=== PATIENT | male | born 1970 | race Caucasian/White ===

== ENCOUNTER → 2020-08-12 14:43 | Outpatient (CLI) | payer OTHER, SELFPAY ==
--- NOTE | 2020-08-12 14:48 | DI.RAD.S_ITS ---
PROCEDURE: XR KNEE LT 3V INDICATIONS: LEFT KNEE PAIN TECHNIQUE: 3 views of the knee were acquired. COMPARISON: None. FINDINGS: Bones: No fractures or dislocations. No suspicious bony lesions. Soft tissues: No joint effusion. No suspicious soft tissue calcifications. IMPRESSION: Mild medial compartment joint space narrowing indicating mild osteoarthritis but no trauma found. Dictated by: Markus Aguirre M.D. on 08/12/2020 at 15:54 Approved by: Markus Aguirre M.D. on 08/12/2020 at 16:24
== END ==
PROVIDERS: Referring Provider Family Medicine; Visit Provider Family Medicine
DX: M17.12 Unilateral primary osteoarthritis, left knee (principal)
CPT/HCPCS: 73562

== ENCOUNTER → 2020-12-02 07:07 | Outpatient (CLI) | payer OTHER, SELFPAY ==
--- NOTE | 2020-12-02 | DI.MRI.S_ITS ---
PROCEDURE: MR KNEE LT WO CON INDICATIONS: Unspecified internal derangement of left knee TECHNIQUE: Noncontrast sagittal PD fast spin echo and T2 fast spin echo with fat saturation, sagittal 3-D FLASH with fat saturation; coronal T1 spin echo and PD fast spin echo with fat saturation, and axial PD fast spin echo with fat saturation through the knee. COMPARISON: None. FINDINGS: Image quality: Excellent. Menisci: There is oblique tear involving posterior horn of medial meniscus extending to inferior articulating surface. No gross focal lateral meniscal tear is seen. The meniscal root ligaments appear intact. Cruciate ligaments: Thickened proximal to mid anterior cruciate ligament with intrasubstance T2 hyperintense signal suggestive of moderate grade partial-thickness tear. No full-thickness ACL rupture. PCL is intact. There is a lobulated cystic structure involving posterior aspect of intercondylar notch adjacent to proximal ACL near its femoral insertion and measures up to 1.9 x 1.6 x 2.3 cm in size and may represent ganglion cyst. Medial structures: The medial collateral ligament appears intact. The posterior oblique ligament, semimembranosus tendon insertions, oblique popliteal ligament, and meniscocapsular junction appear intact. Visualized portions of the pes anserinus tendons appear normal. No abnormal bursal fluid. Lateral structures: The lateral collateral ligament, long and short heads of the biceps femoris tendon appear intact. The popliteus tendon appears normal; the popliteofibular ligament appears intact. The posterosuperior and anteroinferior popliteomeniscal fascicles appear intact. The arcuate and fabellofibular ligaments appear intact, on either side of the lateral inferior geniculate artery. Iliotibial band appears normal. Anterior structures: The quadriceps and patellar tendons appear intact. Patellar alignment is normal. No femoral trochlear dysplasia or ventral trochlear prominence. No edema in the infrapatellar fat pad. Bones and cartilage: Nonspecific marrow edema involving medial aspect of posterior lateral femoral condyle near proximal ACL insertion without discrete fracture line. Marrow edema is also noted involving weight-bearing portion of lateral tibial plateau without discrete fracture line. There is also marrow edema involving medial portion of patella with overlying moderate to high-grade chondromalacia in medial facet of patella cartilage and suggestion of a small osteochondral lesion measures 5 millimeter in size. Mild medial and lateral femoral tibial compartment osteoarthritis and low-grade chondromalacia is also seen. Joint space: There is moderate amount of joint fluid. No Keene's cyst. Normal appearing synovial plicae are incidentally noted. IMPRESSION: 1. Oblique tear involving posterior horn of medial meniscus extending to inferior articulating surface. No focal lateral meniscal tear. 2. Suggestion of moderate grade partial-thickness tear involving proximal to mid anterior cruciate ligament near its femoral insertion with adjacent lobulated and septated cystic structure measures 1.9 x 1.6 x 2.3 cm in size and may represent ganglion cyst . 3. PCL is intact. 4. 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 Suggestion of bony contusion involving lateral tibial plateau and medial periphery of lateral femoral condyle posterior aspect. No fracture or dislocation. Moderate amount of joint fluid, no gross loose body. Dictated by: Juan Godinez M.D. on 12/02/2020 at 9:41 Approved by: Juan Godinez M.D. on 12/02/2020 at 10:42
== END ==
PROVIDERS: PCP Family Medicine; Referring Provider Family Medicine; Visit Provider Family Medicine
DX: M23.92 Unspecified internal derangement of left knee (principal); S83.242A Other tear of medial meniscus, current injury, left knee, initial encounter; M22.42 Chondromalacia patellae, left knee
CPT/HCPCS: 73721

== ENCOUNTER 2023-02-21 08:26 | Observation (INO) | payer OTHER, SELFPAY ==
[2023-02-21] VITALS (10 sets, daily range): BP systolic 109–141; BP diastolic 63–76; PULSE 73–84; RESP 18–20; TEMP 36.2–36.6; O2SAT 95–98; BMI 26.2; BMI 22.7
--- NOTE | 2023-02-21 10:19 | ED_ITS ---
HPI - Abdominal Pain General Chief Complaint: Abdominal Pain Stated Complaint: sent by [facility] poss hernia T-1 Time Seen by Provider: 02/21/23 10:16 Source: patient Mode of arrival: Ambulatory Limitations: no limitations History of Present Illness HPI narrative: This is a 32-year-old male with history of hypertension, anxiety on atenolol, trazodone and antidepressant. Patient states that about 3 or 4 months ago he h ad a 12 in bolt he was cleaning with rust that is sort of slipped and struck him in the abdomen knocking him down. He states he had bruising at that time. He then developed what looks like a small hernia. He states pain will sort of come and go if he lifts up to change a light ball but has a certain activity will start to get pain who usually laid down it will resolve. States over the last day it has not. States the the hernia at his belly button is soft, it is little bit tender but he has more pain throughout his abdomen all over. He denies fevers or chills. No nausea or vomiting. He had a bowel movement yesterday, he has not had any black or bloody stools, he states no diarrhea or constipation. He notes urinary symptoms. He states pain was quite intense she radiate down towards the testicles. Patient states no prior surgeries. Patient states no known drug allergies. No tobacco, occasional alcohol, no illicit. Patient sees Dr. Breen for his primary care. Related Data Home Medications Medication Instructions Recorded Confirmed atenolol 25 mg tablet 25 mg PO BID ##0 10/30/12 02/21/23 fluoxetine 20 mg capsule 20 mg PO DAILY 02/21/23 02/21/23 Previous Rx's Medication Instructions Recorded trazodone 50 mg tablet 50 - 100 mg PO HS ##60 02/12/13 Review of Systems Review of Systems ROS Unobtainable: All systems reviewed & are unremarkable except as noted in HPI and below Patient History Social History Smoking Status: Never smoker alcohol intake: current Smoking Status: Never smoker alcohol intake frequency: holidays/special occasions only Substance Use Type: does not use Exam Narrative Exam Narrative: GENERAL: Alert and oriented x three, well-appearing male in moderate distress. HEENT: Head normocephalic, atraumatic, EOMI, pupils reactive, face symmetric, moist mucous membranes NECK: Supple, full range of motion CARDIOVASCULAR: Regular rate and rhythm without murmurs, rubs or gallops. RESPIRATORY: Breath sounds equal bilaterally, no wheezes rales or rhonchi. ABDOMEN: Soft, nondistended. Patient has generalized moderate tenderness throughout his abdomen. He does have a small to medium size umbilical hernia protruding, it is soft it is only tender on examination when palpating or pushing deeply, when I manipulated without attempted reduction nontender. No discoloration. I am able to palpated easily. Attempted reduction appears to push in words but then comes right back out. Normoactive bowel sounds all 4 quadrants. No guarding or rebound, rigidity, no mass : No CVA tenderness EXTREMITIES: Normal range of motion, no clubbing or edema. Neurovascularly intact NEUROLOGICAL: Cranial nerves II through XII grossly intact. Moving all extremities SKIN: Warm, dry, no petechiae, no rashes or lesions. Initial Vital Signs Initial Vital Signs: Vital Signs Temperature 97.9 F 02/21/23 08:31 Pulse Rate 84 02/21/23 08:31 Respiratory Rate 18 02/21/23 08:31 Blood Pressure 122/72 02/21/23 08:31 Pulse Oximetry 96 02/21/23 08:31 Oxygen Delivery Method Room Air 02/21/23 08:31 Course Orders Ordered: ED Orders 02/21/23 09:47 Urine Culture Stat Urine Microscopic Stat 02/21/23 10:29 CT abdomen pelvis w con Stat 02/21/23 10:41 Ammonia (NH3) Stat Complete Blood Count AUTO DIFF Stat Comprehensive Metabolic Panel Stat Lipase Stat 02/21/23 11:42 Education, smoking cessation ONGOING Acetaminophen (Acetaminophen 325 Mg Tablet) 650 mg PO Q6H [facility] Last Admin: 02/21/23 17:29 Dose: Not Given Documented By: Admin: 02/21/23 14:18 Dose: Not Given Documented By: JUANITO Hydromorphone HCl (Hydromorphone 0.5 Mg Inj) 0.5 mg IV Q2H PRN PRN Reason: Pain, Severe (7-10) Lactated Ringer's (Lactated Ringers) 1,000 mls @ 100 mls/hr IV CONT [facility] Last Admin: 02/21/23 13:11 Dose: 100 mls/hr Documented By: CLL Piperacillin Sod/Tazobactam (Sod 3.375 gm/ Sodium Chloride) 100 mls @ 25 mls/hr IV Q8H [facility] Naloxone HCl (Naloxone 0.4 Mg/Ml Vial) 0.2 mg IV Q2MIN PRN PRN Reason: Opiate Reversal Oxycodone HCl (Oxycodone Ir 5 Mg Tablet) 5 mg PO Q3H PRN PRN Reason: Pain, Moderate (4-6) Last Admin: 02/21/23 14:33 Dose: 5 mg Documented By: JUANITO Discontinued Medications Sodium Chloride (Normal Saline 0.9%) 1,000 mls @ 1,000 mls/hr IV BOLUS ONE Stop: 02/21/23 11:28 Last Infusion: 02/21/23 16:12 Dose: 0 mls/hr Documented By: Admin: 02/21/23 11:23 Dose: 1,000 mls/hr Documented By: YAZMIN Piperacillin Sod/Tazobactam (Sod 4.5 gm/ Sodium Chloride) 100 mls @ 200 mls/hr IV NOW ONE Stop: 02/21/23 11:19 Last Infusion: 02/21/23 12:50 Dose: 0 mls/hr Documented By: Admin: 02/21/23 12:02 Dose: 200 mls/hr Documented By: YAZMIN Lactated Ringer's (Lactated Ringers) 1,000 mls @ 125 mls/hr IV CONT [facility] Last Admin: 02/21/23 16:11 Dose: Not Given Documented By: EHLEN Ketorolac Tromethamine (Ketorolac 30 Mg/Ml Vial) 30 mg IV NOW ONE Stop: 02/21/23 10:30 Last Admin: 02/21/23 11:23 Dose: 30 mg Documented By: YAZMIN Lorazepam (Lorazepam 1 Mg Tablet) 1 mg PO NOW ONE Stop: 02/21/23 12:12 Last Admin: 02/21/23 12:16 Dose: 1 mg Documented By: YAZMIN Vital Signs Vital signs: Vital Signs - 8 hr 02/21/23 10:57 02/21/23 10:57 02/21/23 11:00 Pulse Rate 76 Blood Pressure 115/63 116/67 Pulse Oximetry 96 02/21/23 11:00 02/21/23 11:30 02/21/23 11:30 Pulse Rate 78 78 Blood Pressure 125/76 Pulse Oximetry 95 97 MDM - Abdominal Pain Lab Data 02/21/23 10:41 02/21/23 10:41 Labs: Lab Results 02/21/23 02/21/23 02/21/23 Range/Units 09:47 10:41 10:41 WBC 13.3 H (4.5-11.0) X10^3/uL RBC 4.40 L (4.5-5.9) X10^6/uL Hgb 14.2 (13.5-17.5) g/dL Hct 40.2 L (41-53) % MCV 91.4 (80-100) fL MCH 32.3 (26-34) PG MCHC 35.3 (30-36) % RDW 13.2 (11.6-14.8) % Plt Count 284 (150-400) X10^3/uL Neut % (Auto) 83.1 H (50-75) % Lymph % (Auto) 9.0 L (25-40) % Grainger % (Auto) 6.5 (3-14) % Eos % (Auto) 1.0 L (2-4) % Baso % (Auto) 0.4 (0-2) % Neut # (Auto) 14167 H (3046-2740) /uL Lymph # (Auto) 1200 (9154-2816) /uL Grainger # (Auto) 900 (0-900) /uL Eos # (Auto) 100 (0-450) /uL Baso # (Auto) 100 (0-100) /uL Sodium 134 L (137-145) mmol/L Potassium 3.1 L (3.4-5.1) mmol/L Chloride 92 L (98-107) mmol/L Carbon Dioxide 33 H (22-32) mmol/L BUN 16 (9-20) mg/dL Creatinine 0.96 (0.66-1.25) mg/dL Estimated GFR > 60 (>60) mL/min BUN/Creatinine Ratio 16.7 (6-22) Glucose 106 H (70-100) mg/dL Calcium 9.7 (8.4-10.2) mg/dL Total Bilirubin 1.4 H (0.2-1.3) mg/dL AST 50 (17-59) IU/L ALT 60 H (<50) IU/L Alkaline Phosphatase 70 (38-126) U/L Ammonia (9-30) umol/L Total Protein 8.4 H (6.3-8.2) g/dL Albumin 4.6 (3.5-5.0) g/dL Globulin 3.8 (1.7-4.1) g/dL Albumin/Globulin Ratio 1.2 (1.0-2.8) Lipase 73 (23-300) U/L Urine RBC None seen (0-5/HPF) Urine WBC 1-5/hpf (0-5/HPF) Ur Squamous Epith Cells 0-1 /hpf (0-5/HPF) Amorphous Sediment 2+ Urine Bacteria None seen (None) Ur Culture Indicated? Specimen cultured 02/21/23 Range/Units 10:41 WBC (4.5-11.0) X10^3/uL RBC (4.5-5.9) X10^6/uL Hgb (13.5-17.5) g/dL Hct (41-53) % MCV (80-100) fL MCH (26-34) PG MCHC (30-36) % RDW (11.6-14.8) % Plt Count (150-400) X10^3/uL Neut % (Auto) (50-75) % Lymph % (Auto) (25-40) % Grainger % (Auto) (3-14) % Eos % (Auto) (2-4) % Baso % (Auto) (0-2) % Neut # (Auto) (6780-3861) /uL Lymph # (Auto) (0010-8689) /uL Grainger # (Auto) (0-900) /uL Eos # (Auto) (0-450) /uL Baso # (Auto) (0-100) /uL Sodium (137-145) mmol/L Potassium (3.4-5.1) mmol/L Chloride (98-107) mmol/L Carbon Dioxide (22-32) mmol/L BUN (9-20) mg/dL Creatinine (0.66-1.25) mg/dL Estimated GFR (>60) mL/min BUN/Creatinine Ratio (6-22) Glucose (70-100) mg/dL Calcium (8.4-10.2) mg/dL Total Bilirubin (0.2-1.3) mg/dL AST (17-59) IU/L ALT (<50) IU/L Alkaline Phosphatase (38-126) U/L Ammonia < 9 L (9-30) umol/L Total Protein (6.3-8.2) g/dL Albumin (3.5-5.0) g/dL Globulin (1.7-4.1) g/dL Albumin/Globulin Ratio (1.0-2.8) Lipase (23-300) U/L Urine RBC (0-5/HPF) Urine WBC (0-5/HPF) Ur Squamous Epith Cells (0-5/HPF) Amorphous Sediment Urine Bacteria (None) Ur Culture Indicated? Point of care testing: Urine Dip Bedside Urine Glucose Negative Bedside Urine Bilirubin - Negative Bedside Urine Ketone ++ 40 Urine Specific [place] 1.015 Bedside Urine Occult Blood - Negative Bedside Urine pH 6.0 Bedside Urine Protein + 30 Bedside Urine Urobilinogen - Negative Bedside Urine Nitrite - Negative Bedside Urine Leukocytes - Negative Esterase Imaging Data CT scan - abdomen/pelvis: Radiologist's Impression: Lucinda Castillo??52??M??1970 ? Allergy/Adv: Not Recorded Close Abdomen/Pelvis CT (Signed) Nam Reyes - 02/21/23 Knee MRI (Signed) Juan Godinez - 12/02/20 Knee X-Ray (Signed) Markus Aguirre - 08/12/20 [address] [address] CT Scan Report Signed Patient: Lucinda Castillo MR#: [id number] : 1970 Acct:[id number] Age/Sex: 52 / M Date of Service: 02/21/23 Loc: ED Accession Number: [id number] ?? Procedure: CT abdomen pelvis w con Ordering Provider: Emy Urbina D.O. PROCEDURE:? CT ABDOMEN PELVIS W CON ? INDICATIONS:? umbilical hernia, soft, general abd pain ? TECHNIQUE:? After the administration of intravenous contrast, axial sections acquired from the lung bases to the pubic symphysis.? Coronal and sagittal reformats were performed.? For radiation dose reduction, the following was used:? automated exposure control, adjustment of mA and/or kV according to patient size.? ? COMPARISON:? None. ? FINDINGS:? Image quality:? Excellent.? ? Lung bases:? Unremarkable. Heart:? No significant findings. ? ABDOMEN: Liver:? Unremarkable.? ? Gallbladder:? Unremarkable.? ? Biliary ducts:? Unremarkable.? ? Pancreas:? Unremarkable.? ? Spleen:? Unremarkable.? ? Adrenal Glands:? Unremarkable.? ? Kidneys and Ureters:? Unremarkable.? ? ? Stomach and Bowel:? There is diverticulitis of the sigmoid colon.? There is a contained perforation, containing gas and fluid, with partial rim enhancement, measuring 2.5 x 1.5 centimeter (series 2, image 57).? Submucosal fat deposition of the distal ileum Peritoneum:? No abnormal intraperitoneal fluid.? No free air.? ? Ventral Wall: ? Umbilical hernia containing fat. Abdominal Nodes:? No retroperitoneal or mesenteric adenopathy by size criteria.? Vessels:? Aorta and inferior vena cava are normal in size.? ? PELVIS: Pelvic Organs:? Unremarkable.? ? Bladder:? Unremarkable.? ? Pelvic Nodes: No enlarged lymph nodes.? Miscellaneous: No hernias are seen. ? ? ? Bones:? Questionable bilateral sacroiliitis, right greater than left. ? ? ? IMPRESSION:? There is diverticulitis of the sigmoid colon.? There is a contained perforation, containing gas and fluid, with partial rim enhancement, measuring 2.5 x 1.5 centimeter (series 2, image 57). ? Submucosal fat deposition within the distal ileum, and questionable bilateral sacroiliitis.? Findings are suggestive of inflammatory bowel disease.? Correlate with history. ? Fat containing umbilical hernia.? ? Dictated by: Nam Reyes M.D. on 02/21/2023 at 11:10 ? ? Approved by: Nam Reyes M.D. on 02/21/2023 at 11:14?? MDM Narrative Medical decision making narrative: This is a 52-year-old male with umbilical hernia that has been present for about 3 months he states the states has not changed. He notes that sometimes when he reaches upward or does certain activities he will have increased abdominal pain. Patient notes that he is hurting kind of all around. He does have some tenderness at the hernia itself but with direct palpation not very tender when I try to push deeply is a little bit more tender but he is also quite tender throughout on his abdominal exam more so than over the hernia itself. It is soft easily palpable in feels like it is easily reduced but immediately popped back out. Patient's has a leukocytosis, slight leftward shift. Sodium is 134 potassium 3.1 chloride 92 CO2 33 with normal BUN and creatinine, glucose is 106, total bili is 1.4, AST is 60, ammonia is negative with total protein. Urine has ketones, some protein. No RBCs, 1-5 WBCs, 0-1 squamous epithelial, no bacteria specimen was cultured. Patient's imaging shows appears to be diverticulitis with walled-off perforation rim enhancing suspicious for abscess. Patient also has some changes that could be questionable bilateral sacroiliitis right greater than left had umbilical hernia containing fat. Submucosal fat deposition in the distal ileum. Patient does note he has been told he has diverticulitis or diverticulosis in the past. Patient was covered with a dose of IV antibiotics. Consultation with General surgery, Dr. Dc patient has perforation sigmoid diverticulitis with what appears to be he abscess. Covered with JIM Hirsch, Dr. Dc accepts for observation. Discharge Plan Departure Patient Disposition: Admitted as Observation Clinical Impression: Diverticulitis of intestine with perforation Admit Date/Time: 02/21/23 11:42 Admit Provider: Dk Dc
--- NOTE | 2023-02-21 10:29 | DI.CT.S_ITS ---
PROCEDURE: CT ABDOMEN PELVIS W CON INDICATIONS: umbilical hernia, soft, general abd pain TECHNIQUE: After the administration of intravenous contrast, axial sections acquired from the lung bases to the pubic symphysis. Coronal and sagittal reformats were performed. For radiation dose reduction, the following was used: automated exposure control, adjustment of mA and/or kV according to patient size. COMPARISON: None. FINDINGS: Image quality: Excellent. Lung bases: Unremarkable. Heart: No significant findings. ABDOMEN: Liver: Unremarkable. Gallbladder: Unremarkable. Biliary ducts: Unremarkable. Pancreas: Unremarkable. Spleen: Unremarkable. Adrenal Glands: Unremarkable. Kidneys and Ureters: Unremarkable. Stomach and Bowel: There is diverticulitis of the sigmoid colon. There is a contained perforation, containing gas and fluid, with partial rim enhancement, measuring 2.5 x 1.5 centimeter (series 2, image 57). Submucosal fat deposition of the distal ileum Peritoneum: No abnormal intraperitoneal fluid. No free air. Ventral Wall: Umbilical hernia containing fat. Abdominal Nodes: No retroperitoneal or mesenteric adenopathy by size criteria. Vessels: Aorta and inferior vena cava are normal in size. PELVIS: Pelvic Organs: Unremarkable. Bladder: Unremarkable. Pelvic Nodes: No enlarged lymph nodes. Miscellaneous: No hernias are seen. Bones: Questionable bilateral sacroiliitis, right greater than left. IMPRESSION: There is diverticulitis of the sigmoid colon. There is a contained perforation, containing gas and fluid, with partial rim enhancement, measuring 2.5 x 1.5 centimeter (series 2, image 57). Submucosal fat deposition within the distal ileum, and questionable bilateral sacroiliitis. Findings are suggestive of inflammatory bowel disease. Correlate with history. Fat containing umbilical hernia. Dictated by: Nam Reyes M.D. on 02/21/2023 at 11:10 Approved by: Nam Reyes M.D. on 02/21/2023 at 11:14
[2023-02-21 10:55] LABS: Add Manual Diff / Slide Review NO; Basophils Absolute Auto 100 /uL (0-100); Basophils Percent Auto 0.4 % (0-2); Eosinophils Absolute Auto 100 /uL (0-450); Hematocrit 40.2 % (41-53); Hemoglobin 14.2 g/dL (13.5-17.5); Lymphocytes Absolute Auto 1200 /uL (1100-4500); Mean Corpuscular HGB Conc 35.3 % (30-36); Mean Corpuscular Hemoglobin 32.3 PG (26-34); Mean Corpuscular Volume 91.4 fL (80-100); Monocytes Absolute Auto 900 /uL (0-900); Monocytes Percent Auto 6.5 % (3-14); Neutrophils Absolute Auto 11000 /uL (1500-7000); Neutrophils Percent Auto 83.1 % (50-75); Platelet Count 284 X10^3/uL (150-400); Red Cell Distribution Width 13.2 % (11.6-14.8); White Blood Cell Count 13.3 X10^3/uL (4.5-11.0)
[2023-02-21 11:10] LABS: Ammonia (NH3) < 9 umol/L (9-30)
[2023-02-21 11:12] LABS: Alanine Aminotransferase 60 IU/L (<50); Albumin 4.6 g/dL (3.5-5.0); Albumin Globulin Ratio 1.2 (1.0-2.8); Alkaline Phosphatase 70 U/L (38-126); Aspartate Aminotransferase 50 IU/L (17-59); BUN Creatinine Ratio 16.7 (6-22); Bilirubin Total 1.4 mg/dL (0.2-1.3); Blood Urea Nitrogen 16 mg/dL (9-20); Calcium 9.7 mg/dL (8.4-10.2); Carbon Dioxide 33 mmol/L (22-32); Chloride 92 mmol/L (98-107); Estimated Glomerular Filt Rate > 60 mL/min (>60); Globulin 3.8 g/dL (1.7-4.1); Glucose 106 mg/dL (70-100); HEMOLYSIS < 15 (0-50); Lipase 73 U/L (23-300); Potassium 3.1 mmol/L (3.4-5.1); Sodium 134 mmol/L (137-145); Total Protein 8.4 g/dL (6.3-8.2)
[2023-02-21 11:16] LABS: Amorphous Sediment Urine 2+; Bacteria Urine None Seen; Culture Indicated Urine Specimen Cultured; RBC Urine None Seen (0-5/HPF); Squamous Epithelial Cell Urine 0-1 /HPF (0-5/HPF); WBC Urine 1-5/HPF (0-5/HPF)
[2023-02-21] MEDS: KETOROLAC 30 MG/ML VIAL IV (11:23)
[2023-02-21] MEDS: SODIUM CHLORIDE 0.9% 1,000 ML 1000 ML IV (11:23)
[2023-02-21] MEDS: PIPERACILLIN/TAZO 4.5 GM in SODIUM CHLORIDE 0.9% 100 ML IV (12:02)
[2023-02-21] MEDS: LORazepam 1 MG TABLET PO (12:16)
[2023-02-21] MEDS: LACTATED RINGERS 1,000 ML 100 ML IV ×2 (13:11→23:21)
--- NOTE | 2023-02-21 14:02 | PM.HP.1 ---
History of Present Illness History of Present Illness Date Patient Seen: 02/21/23 Time Patient Seen: 19:49 Chief complaint: sent by [facility] poss hernia T-1 Narrative: 52-year-old man history of diverticular disease who is admitted to the hospital with acute diverticulitis. Within the last few days he developed severe left lower quadrant pain. He presented to the [facility] Emergency Department yesterday 02/20. Evaluation was significant for WBC 13, CT abdomen pelvis demonstrates a 2 cm pericolonic abscess of the sigmoid colon. No free air or significant free fluid noted. He is never had a prior colonoscopy. No personal or family history of intestinal malignancy. No blood per rectum unintentional weight loss nausea vomiting. [facility] Social History Smoking Status: Never smoker alcohol intake: current Meds Home Medications and Allergies Home Medications Medication Instructions Recorded Confirmed Type atenolol 25 mg tablet 25 mg PO BID ##0 10/30/12 02/21/23 History trazodone 50 mg tablet 50 - 100 mg PO HS ##60 02/12/13 02/21/23 Rx fluoxetine 20 mg capsule 20 mg PO DAILY 02/21/23 02/21/23 History Exam Vital Signs (past 8 hours): - 02/21/23 08:31 02/21/23 10:43 02/21/23 10:44 Temperature 97.9 F Pulse Rate 84 75 78 Respiratory Rate 18 Blood Pressure 122/72 Pulse Oximetry 96 97 97 Oxygen Delivery Method Room Air Oxygen Flow Rate 02/21/23 10:44 02/21/23 10:57 02/21/23 10:57 Temperature Pulse Rate 76 Respiratory Rate Blood Pressure 120/64 115/63 Pulse Oximetry 96 Oxygen Delivery Method Oxygen Flow Rate 02/21/23 11:00 02/21/23 11:00 02/21/23 11:30 Temperature Pulse Rate 78 Respiratory Rate Blood Pressure 116/67 125/76 Pulse Oximetry 95 Oxygen Delivery Method Oxygen Flow Rate 02/21/23 11:30 02/21/23 12:00 02/21/23 12:00 Temperature Pulse Rate 78 74 Respiratory Rate Blood Pressure 141/71 H Pulse Oximetry 97 96 Oxygen Delivery Method Oxygen Flow Rate 02/21/23 12:34 02/21/23 12:46 Temperature 97.3 F L Pulse Rate 73 Respiratory Rate 20 Blood Pressure 112/66 Pulse Oximetry 98 Oxygen Delivery Method Room Air Oxygen Flow Rate 0 Oxygen Delivery Method Room Air Oxygen Flow Rate 0 Narrative Exam Narrative: General adult man alert oriented no acute distress Chest nonlabored respiration Heart regular rate and rhythm Abdomen tender left lower quadrant. Not kings peritonitis. Extremities warm well perfused Objective Labs 02/21/23 10:41 02/21/23 10:41 Labs: Laboratory Results - last 24 hr 02/21/23 02/21/23 02/21/23 09:47 10:41 10:41 WBC 13.3 H RBC 4.40 L Hgb 14.2 Hct 40.2 L MCV 91.4 MCH 32.3 MCHC 35.3 RDW 13.2 Plt Count 284 Neut % (Auto) 83.1 H Lymph % (Auto) 9.0 L Ferry % (Auto) 6.5 Eos % (Auto) 1.0 L Baso % (Auto) 0.4 Neut # (Auto) 45625 H Lymph # (Auto) 1200 Ferry # (Auto) 900 Eos # (Auto) 100 Baso # (Auto) 100 Sodium 134 L Potassium 3.1 L Chloride 92 L Carbon Dioxide 33 H BUN 16 Creatinine 0.96 Estimated GFR > 60 BUN/Creatinine Ratio 16.7 Glucose 106 H Calcium 9.7 Total Bilirubin 1.4 H AST 50 ALT 60 H Alkaline Phosphatase 70 Ammonia Total Protein 8.4 H Albumin 4.6 Globulin 3.8 Albumin/Globulin Ratio 1.2 Lipase 73 Urine RBC None seen Urine WBC 1-5/hpf Ur Squamous Epith Cells 0-1 /hpf Amorphous Sediment 2+ Urine Bacteria None seen Ur Culture Indicated? Specimen cultured 02/21/23 10:41 WBC RBC Hgb Hct MCV MCH MCHC RDW Plt Count Neut % (Auto) Lymph % (Auto) Ferry % (Auto) Eos % (Auto) Baso % (Auto) Neut # (Auto) Lymph # (Auto) Ferry # (Auto) Eos # (Auto) Baso # (Auto) Sodium Potassium Chloride Carbon Dioxide BUN Creatinine Estimated GFR BUN/Creatinine Ratio Glucose Calcium Total Bilirubin AST ALT Alkaline Phosphatase Ammonia < 9 L Total Protein Albumin Globulin Albumin/Globulin Ratio Lipase Urine RBC Urine WBC Ur Squamous Epith Cells Amorphous Sediment Urine Bacteria Ur Culture Indicated? Assessment & Plan Assessment and plan (1) Diverticulitis of intestine with perforation: Status: Acute Assessment & Plan narrative: 52-year-old man admitted to the hospital with complicated diverticulitis with [address] abdomen pelvis personally reviewed demonstrates stranding and a small fluid collection adjacent to the sigmoid colon. It appears that he has a small contained colonic perforation likely due to diverticular disease. I discussed management with him and at this point there is no indication for any surgical intervention. We will proceed with antibiotic therapy and should his condition worsen then we will reassess. I did explain to him that he does not need a colonoscopy in approximately 6-8 weeks to verify that this was actually diverticular disease that he had not an underlying malignancy. His questions have been answered and he is in agreement with the plan. Trial of clear liquid diet. Continue Zosyn. Anticipate discharge home tomorrow on oral antibiotics. Outpatient colonoscopy Quality VTE Deep Vein Thrombosis/Pulmonary Embolism Present on Admission: No
--- NOTE | 2023-02-21 14:23 | PC.NURSE ---
Patient tolerated some red jello and water. Told to stop if he started having nausea or emesis. He drinks one drink in the afternoons, he states. Friend in room. He is complaining of some abdomen tenderness. To give patient something for discomfort now.
[2023-02-21] MEDS: OXYCODONE IR 5 MG TABLET PO ×2 (14:33→19:48)
[2023-02-21] MEDS: PIPERACILLIN/TAZO 3.375 GM in SODIUM CHLORIDE 0.9% 100 ML IV (20:45)
[2023-02-21] MEDS: TRAZODONE 50 MG TABLET PO ×2 (20:46→23:21)
[2023-02-21] MEDS: atenoloL 25 MG TABLET PO (20:46)
[2023-02-21] MEDS: ACETAMINOPHEN 325 MG TABLET 650 MG PO (23:21)
[2023-02-22] VITALS: O2SAT 98
--- NOTE | 2023-02-22 03:23 | PC.NURSE ---
Addendum entered by Lisseth Mcclure R.N. 02/22/23 03:55: Potassium=3.1, 40meq PO ordered. Pt spit out x2 pills stating these are too big and I'm not taking them Original Note: Pt upset at start of shift r/t his home medications not available. Notified Dr. Dc. Trazadone ordered 100mg at bedtime and his home Atenolol. Received 10mg Oxycodone PRN for abdominal pain 04/01. Pt ambulating to bathroom with steady gait. Tolerating clear diet. LR and IV ABX running.
[2023-02-22 04:00] VITALS: BP 119/70; PULSE 75; RESP 17; TEMP 36.4; O2SAT 95; O2SAT 98
[2023-02-22] MEDS: PIPERACILLIN/TAZO 3.375 GM in SODIUM CHLORIDE 0.9% 100 ML IV (04:11)
[2023-02-22] MEDS: HYDROMORPHONE 0.5 MG INJ IV ×2 (04:19→09:28)
[2023-02-22] MEDS: OXYCODONE IR 5 MG TABLET PO ×2 (04:26→08:29)
[2023-02-22 05:05] LABS: Add Manual Diff / Slide Review NO; Basophils Absolute Auto 100 /uL (0-100); Basophils Percent Auto 0.4 % (0-2); Eosinophils Absolute Auto 300 /uL (0-450); Eosinophils Percent Auto 2.6 % (2-4); Hematocrit 35.5 % (41-53); Hemoglobin 12.3 g/dL (13.5-17.5); Lymphocytes Absolute Auto 1300 /uL (1100-4500); Lymphocytes Percent Auto 10.9 % (25-40); Mean Corpuscular HGB Conc 34.8 % (30-36); Mean Corpuscular Hemoglobin 32.2 PG (26-34); Mean Corpuscular Volume 92.4 fL (80-100); Monocytes Absolute Auto 900 /uL (0-900); Monocytes Percent Auto 7.4 % (3-14); Neutrophils Absolute Auto 9100 /uL (1500-7000); Neutrophils Percent Auto 78.7 % (50-75); Platelet Count 231 X10^3/uL (150-400); Red Blood Cell Count 3.84 X10^6/uL (4.5-5.9); Red Cell Distribution Width 13.1 % (11.6-14.8); White Blood Cell Count 11.6 X10^3/uL (4.5-11.0)
[2023-02-22 08:00] VITALS: BP 118/66; PULSE 90; RESP 22; TEMP 36.4; O2SAT 100; O2SAT 97
[2023-02-22] MEDS: atenoloL 25 MG TABLET PO (08:29)
[2023-02-22] MEDS: FLUoxetine 20 MG CAPSULE PO (08:30)
--- NOTE | 2023-02-22 09:42 | PC.NURSE ---
Pt is very anxious this morning and reports that he's frustrated with lack of communication from providers. Pt also reports that he's very anxious and he's pacing in the room. When this RN asked if he takes his atenolol for HTN or for anxiety the pt stated he takes his atenolol for anxiety at home. When Dr. Dc rounded this morning, this RN informed him that the pt takes the atenolol for anxiety and not for HTN. Pt is currently eating breakfast and if he's able to keep down solids the pt can home today per Dr. Dc.
--- NOTE | 2023-02-22 11:26 | CM.DANOTE ---
DCP Brief Assessment: Patient is a 52yo M who was admitted to the hospital with acute diverticulitis. Payer: Brandie GUERRERO and self pay PCP: Dr. Efe Breen GASSER MACHINE OPERATOR was unable to meet with patient due to patient's eagerness to leave as early as possible. Per chart, patient appears independent at baseline. From nursing staff, patient was eager to leave and left as soon as allowed. Nursing staff reports he appeared to have no needs from CM team. Plan: d/c home. No needs. MARYBETH Villalobos Discharge Planning/Care Management CM Discharge Assessment Start: 02/22/23 11:25 Freq: Status: Active Protocol: Document 02/22/23 11:25 (Rec: 02/22/23 11:26 [id number]) Discharge Planning Assessment Assigned Heeler Machine MARYBETH Villalobos DPOA/Assigned Designee Name Ellie Reeves (friend) Contact Information [phone] Advance Directives? No History Provided By Medical Record Prior Living Arrangements House Independent with ADL's Yes Discharge Plan Home Whiteboard Updated in Patient Room with No name and ext. # of Heeler Machine Review Status In Process Next Review Type Continued Stay Review
--- NOTE | 2023-02-22 11:27 | PC.NURSE ---
Pt discharged today with all of his personal belongings including cell phone, clothes, shoes, and comfort items. Pt A&Ox4, absent of IV, able to verbalize understanding of when to return to the ED if needed and when to follow up with PCP and to schedule a colonoscopy in 6-8 weeks. Pt verbalized understanding of how to take all medications including new medications and to continue to his home medications as normal. Pt walked out of the hospital after refusing a W/C, this RN accompied the pt down to the [address] entrance where the pt stated I'll wait here for my ride he's seeing Dr. Breen and then he'll pick me up. This RN did see the pt's ride this morning and confirmed with the pt's friend that he would be taking the pt home at approximately 0940AM this morning. Pt was able to to ambulate without any assistance from staff. All questions answered upon discharge.
== END 2023-02-22 11:03 | disposition home or self-care (01) | DRG 391 ==
LOC: ED 11:42 → AC 12:17
PROVIDERS: Admitting Provider Surgery; Emergency Provider Emergency Medicine; PCP Family Medicine; Referring Provider Emergency Medicine; Visit Provider Surgery
DX: K57.20 Diverticulitis of large intestine with perforation and abscess without bleeding (principal); K65.1 Peritoneal abscess; Z20.822 Contact with and (suspected) exposure to COVID-19; F41.9 Anxiety disorder, unspecified; I10 Essential (primary) hypertension
CPT/HCPCS: 36415; 74177; 80053; 81003; 81015; 82140; 83690; 85025; 87086; 96365; 96375; 99221; 99284; G0378; J1170; J1885; J2543; Q9967

== ENCOUNTER 2023-02-23 04:43 | Emergency (ER) | payer OTHER, SELFPAY ==
[2023-02-21 12:54] VITALS: BMI 22.7
[2023-02-23 04:55] VITALS: BP 135/80; PULSE 97; RESP 16; TEMP 36.7; O2SAT 97; BMI 27.6
[2023-02-23 06:58] LABS: RBC Urine None Seen (0-5/HPF); WBC Urine None Seen (0-5/HPF)
[2023-02-23 06:59] LABS: Bacteria Urine None Seen; Culture Indicated Urine Cult Not Indicated
--- NOTE | 2023-02-23 07:06 | ED.ABDPAIN ---
HPI - Abdominal Pain General Chief Complaint: Abdominal Pain Stated Complaint: Was dx with diverticulitis yesterday, symptomatic Time Seen by Provider: 02/23/23 05:25 Source: patient Mode of arrival: Ambulatory History of Present Illness HPI narrative: Patient is a 52-year-old male history of hypertension recently admitted on February 21 for 2 cm pericolonic abscess and leukocytosis of 13. He was kept overnight and discharged the following day on Levaquin and tramadol. He reports that he started regular diet eating eggs sausage and chicken noodle soup afterward he had significant pain and felt extremely nauseous. Pain has subsided since then. He is afebrile vitals are stable now. He reports that now he is feeling a bit better but as soon as he started adjusting some of the food pain worsened significantly. Related Data Home Medications Medication Instructions Recorded Confirmed atenolol 25 mg tablet 25 mg PO BID ##0 10/30/12 02/21/23 fluoxetine 20 mg capsule 20 mg PO DAILY 02/21/23 02/21/23 Previous Rx's Medication Instructions Recorded trazodone 50 mg tablet 50 - 100 mg PO HS ##60 02/12/13 levofloxacin 500 mg tablet 500 mg PO DAILY #5 tabs 02/22/23 tramadol 50 mg tablet 50 mg PO Q6H PRN pain #5 tabs 02/22/23 hydrocodone 5 mg-acetaminophen 325 1 tab PO Q6H PRN pain #10 tabs 02/23/23 mg tablet metronidazole 500 mg tablet 500 mg PO Q8H 7 days #21 tabs 02/23/23 ondansetron 4 mg disintegrating 4 mg PO Q8H PRN nausea and 02/23/23 tablet vomiting #10 tabs Allergies Allergy/AdvReac Type Severity Reaction Status Date / Time No Known Drug Allergies Allergy Verified 02/22/23 09:46 Review of Systems Review of Systems ROS Unobtainable: All systems reviewed & are unremarkable except as noted in HPI and below Patient History Social History Smoking Status: Never smoker alcohol intake: current Smoking Status: Never smoker alcohol intake frequency: holidays/special occasions only Substance Use Type: does not use Exam Initial Vital Signs Initial Vital Signs: Vital Signs Temperature 98.0 F 02/23/23 04:55 Pulse Rate 97 H 02/23/23 04:55 Respiratory Rate 16 02/23/23 04:55 Blood Pressure 135/80 02/23/23 04:55 Pulse Oximetry 97 02/23/23 04:55 Oxygen Delivery Method Room Air 02/23/23 04:55 GENERAL: Alert pleasant 52-year-old male and in no acute distress. HEENT: Head atraumatic,EOMI, pupils reactive, face symmetric, moist mucous membranes CARDIOVASCULAR: Regular rate and rhythm without murmurs, rubs or gallops. RESPIRATORY: Breath sounds equal bilaterally, no wheezes rales or rhonchi. ABDOMEN: Soft, no distention positive bowel sounds mild lower quadrant pain left greater than right no upper abdominal pain : No CVA tenderness EXTREMITIES: Normal range of motion, no clubbing or edema. Neurovascularly intact NEUROLOGICAL: Alert and oriented x4. SKIN: Warm, dry, no laceration, no petechiae, no rashes or lesions. Course Orders Ordered: Discontinued Medications Hydrocodone Bitart/Acetaminophen (Hydrocodone/Acet 5/325 Tablet) 1 tab PO NOW ONE Stop: 02/23/23 07:22 Last Admin: 02/23/23 07:48 Dose: 1 tab Documented By: ARLIN Ketorolac Tromethamine (Ketorolac 30 Mg/Ml Vial) 30 mg IM NOW ONE Stop: 02/23/23 07:22 Last Admin: 02/23/23 07:45 Dose: 30 mg Documented By: ARLIN Ondansetron HCl (Ondansetron 4 Mg Odt) 4 mg SL NOW ONE Stop: 02/23/23 07:22 Last Admin: 02/23/23 07:44 Dose: 4 mg Documented By: ARLIN Vital Signs Vital signs: Vital Signs - 8 hr 02/23/23 04:55 Temperature 98.0 F Pulse Rate 97 H Respiratory Rate 16 Blood Pressure 135/80 Pulse Oximetry 97 Oxygen Delivery Method Room Air MDM - Abdominal Pain Lab Data Labs: Lab Results 02/23/23 Range/Units 06:36 Urine RBC None seen (0-5/HPF) Urine WBC None seen (0-5/HPF) Urine Bacteria None seen (None) Ur Culture Indicated? Cult not indicated Point of care testing: Urine Dip Bedside Urine Glucose Negative Bedside Urine Bilirubin - Negative Bedside Urine Ketone - Negative Urine Specific [place] 1.010 Bedside Urine Occult Blood +/- Bedside Urine pH 6.0 Bedside Urine Protein +/- 15 Bedside Urine Urobilinogen - Negative Bedside Urine Nitrite - Negative Bedside Urine Leukocytes - Negative Esterase MDM Narrative Medical decision making narrative: Patient overall appears well abdomen is soft nondistended minimally tender no evidence of acute abdomen. Pain started after he ate quite a bit. He does have a 2 cm pericolonic abscess. Discharged home Levaquin and tramadol. At this time we talked about low fiber diet clear liquids for a couple days. I think reasonable to start him on Flagyl along with [place] and Zofran. Given strict return precautions if needed. He is afebrile not tachycardic and normotensive, without evidence of an acute. I do not see need for repeating blood work or CT this time. Discharge Plan Departure Patient Disposition: Home Clinical Impression: Diverticulitis of intestine with perforation Instructions: Diverticulitis, Clear Liquid Diet Activity Restrictions/Additional Instructions: *You have been diagnosed with diverticulitis *What to do: At this time I recommend low-fiber clear liquid diet for couple of days if tolerating then you may advance diet slowly. *Continue to take medications as directed Flagyl 500 mg 3 times a day 7 days [place] 1 tablet every 6 hours if needed for severe pain (do not combine with tramadol, stop taking tramadol) Zofran 4 mg every 8 hours if needed for nausea or vomiting Motrin 600 mg every 6 hours if needed for dhlc-do-sdfahpdo pain *Follow up with your primary care provider in 2-3 days or call [phone] Follow-up with Dr. Dc *Return to ER if you should have increasing pain fever body aches chills not tolerating fluids or any new, worsening or concerning symptoms Prescriptions: New hydrocodone-acetaminophen 5-325 mg tablet 1 tab PO Q6H PRN (Reason: pain) Qty: 10 0RF metronidazole 500 mg tablet 500 mg PO Q8H 7 Days Qty: 21 0RF ondansetron 4 mg tablet,disintegrating 4 mg PO Q8H PRN (Reason: nausea and vomiting) Qty: 10 0RF No Action atenolol 25 MG tablet 25 mg PO BID Qty: 0 trazodone 50 MG tablet 50 - 100 mg PO HS Qty: 60 0RF fluoxetine 20 mg capsule 20 mg PO DAILY levofloxacin 500 mg tablet 500 mg PO DAILY Qty: 5 0RF tramadol 50 mg tablet 50 mg PO Q6H PRN (Reason: pain) Qty: 5 0RF Referrals: Dk Dc MD [Physician] - Efe Breen MD [Primary Care Provider] - Stand Alone Forms: Patient Portal/API
[2023-02-23] MEDS: ONDANSETRON 4 MG ODT SL (07:44)
[2023-02-23] MEDS: KETOROLAC 30 MG/ML VIAL IM (07:45)
[2023-02-23] MEDS: HYDROCODONE/ACET 5/325 TABLET 1 TAB PO (07:48)
[2023-02-23 07:51] VITALS: BP 132/76; PULSE 76; RESP 20; O2SAT 96
== END 2023-02-23 08:03 | disposition home or self-care (01) ==
PROVIDERS: Emergency Medicine; Emergency Provider Emergency Medicine; PCP Family Medicine
DX: K57.80 Diverticulitis of intestine, part unspecified, with perforation and abscess without bleeding (principal); R11.0 Nausea
CPT/HCPCS: 81003; 81015; 96372; 99283; J1885

== ENCOUNTER 2023-04-16 14:00 | Day surgery (SDC) | payer OTHER, SELFPAY ==
[2023-02-21 12:54] VITALS: BMI 22.7
[2023-04-16] VITALS (7 sets, daily range): BP systolic 79–159; BP diastolic 52–100; PULSE 89–97; RESP 16–20; TEMP 36.1–36.3; O2SAT 94–99; BMI 25.0
[2023-04-16] MEDS: LACTATED RINGERS 1,000 ML 150 ML IV (15:20)
--- NOTE | 2023-04-16 16:41 | P.HP_ITS ---
History of Present Illness History of Present Illness Date Patient Seen: 04/16/23 Time Patient Seen: 16:41 Chief complaint: Colonoscopy Narrative: 52-year-old man history of diverticular disease here for screening colonoscopy. No family history of intestinal malignancy. Currently no abdominal pain or fever his most recent episode of diverticular disease was several months ago. [facility] Medical History Anxiety Diverticulitis Hernia Surgical History H/O knee surgery Social History marital status: unmarried,single household members: none lives independently: Yes occupational status: employed Smoking Status: Current every day smoker alcohol intake: current substance use type: does not use Meds Home Medications and Allergies Home Medications Medication Instructions Recorded Confirmed Type fluoxetine 20 mg capsule 20 mg PO DAILY 02/21/23 04/16/23 History atenolol 20 mg PO BID 03/21/23 04/16/23 History trazodone 100 mg PO BEDTIME 03/21/23 04/16/23 History sodium,potassium,mag sulfates 17.5 See Rx Instructions PO .COMPLEX 03/29/23 04/16/23 Rx gram-3.13 gram-1.6 gram oral soln #354 mL (Suprep Bowel Prep Kit) Allergies Allergy/AdvReac Type Severity Reaction Status Date / Time No Known Drug Allergies Allergy Verified 04/11/23 11:36 Exam Vital Signs (past 8 hours): - 04/16/23 15:08 Temperature 97.3 F L Pulse Rate 96 H Respiratory Rate 17 Blood Pressure 145/100 H Pulse Oximetry 96 Oxygen Delivery Method Room Air Oxygen Delivery Method Room Air Narrative Exam Narrative: General adult man alert oriented no acute distress Abdomen soft nontender nondistended Assessment & Plan Assessment and plan (1) Diverticulitis of intestine with perforation: Qualifiers: Diverticulitis bleeding: without bleeding Diverticulitis site: large intestine Qualified Code(s): K57.20 - Diverticulitis of large intestine with perforation and abscess without bleeding Status: Acute Assessment & Plan narrative: 52-year-old man with a history of diverticulitis here for screening colonoscopy. Technical details were discussed. Risks, benefits, alternatives explained. Risks including but not limited to myocardial infarction, aspiration, bleeding, pain, missed lesion, incomplete examination, need for further radiographic studies, colonic perforation, and need for major abdominal surgery were discussed. All questions were answered to their satisfaction, and they are in agreement with this plan.
--- NOTE | 2023-04-16 16:59 | PM.OP.COLON ---
Operative Date/Time/Diagnoses Date of procedure: 04/16/23 Time of procedure: 16:59 Pre-op diagnosis: Diverticulosis Post-op diagnosis: same Procedure & Clinicians Study performed: Colonoscopy Same procedure as scheduled: Yes Indications: Colorectal screening. History of diverticulitis Surgeon: Dk Dc Procedure Notes Procedure in detail: The history and physical was performed/updated and the patient is ASA class is 2. The procedure was discussed in detail with the patient. Potential risks complications including infection, bleeding, missed diagnosis, perforation, need for surgery, and were explained. Their questions were answered and informed consent was obtained. Patient was brought to the procedure room and placed standard monitoring equipment. The patient's vital signs were monitored continuously throughout the entire procedure. Prior to starting time-out was performed. The patient was placed in the left lateral recumbent position. Procedural sedation was administered by anesthesia. Examination began with a thorough inspection of the perianal area there was no evidence of fissures, fistulae, external hemorrhoids or cutaneous malignancy. The colonoscopy scope was then placed into the anal canal and was advanced to the cecum, which was identified by the ileocecal valve, the appendiceal orifice and the confluence of the taenia. The scope was then slowly withdrawn examining colon thoroughly in all directions, irrigating it of any residual stool. No masses or polyps. Sigmoid colon notable for marked diverticulosis. The patient tolerated the procedure well. They will be discharged once criteria are met. The prep was of good/excellent quality. The withdrawl time was 6 minutes. Specimen(s): none sent Impression: Diverticulosis Post-procedure Recommendations: Colonoscopy in 10 years Disposition: same day surgery
== END 2023-04-16 17:39 | disposition home or self-care (01) ==
PROVIDERS: PCP Family Medicine; Referring Provider Surgery; Visit Provider Surgery
PROC: 0DJD8ZZ Inspection of Lower Intestinal Tract, Via Natural or Artificial Opening Endoscopic (ICD-10-PCS; CPT 45378; principal; 2023-04-16 15:15)
DX: Z12.11 Encounter for screening for malignant neoplasm of colon (principal); K57.30 Diverticulosis of large intestine without perforation or abscess without bleeding
CPT/HCPCS: 45378

== ENCOUNTER 2023-05-01 05:55 | Inpatient (IN) | payer OTHER, SELFPAY ==
[2023-02-21 12:54] VITALS: BMI 22.7
[2023-04-23 08:52] VITALS: BMI 25.7
--- NOTE | 2023-04-30 08:18 | PM.PREOP ---
Pre-operative Note Interval Note History & Physical reviewed/Exam performed by Physician: Yes Changes to H&P: No H&P completed within 30 days and has changed as indicated here:: 52 M with a recurrent diverticulitis and umbilical hernia here for laparoscopic sigmoid colectomy and umbilical hernia repair. Provides his written and verbal consent to proceed.
[2023-05-01] VITALS (15 sets, daily range): BP systolic 100–151; BP diastolic 61–98; PULSE 74–100; RESP 12–17; TEMP 36.4–37.7; O2SAT 93–99; BMI 25.0
--- NOTE | 2023-05-01 | PATH_ITS ---
[facility] Accession Number: [id number] No. of containers..02 Tissue . 01 Material submitted: . PART A: sigmoid colon - SIGMOID COLON PART B: anastomosis - ANASTOMOTIC DONUTS . 01 Diagnosis: A. Sigmoid Colon, Resection: Diverticulosis. Stricture with associated serosal acute inflammation, fibrosis and foreign body giant cell reaction. No evidence of infectious organisms, dysplasia or malignancy. Resection margins are viable and with no significant diagnostic alterations. . B. Anastomotic Donuts, Excision: Colonic mucosa with no significant diagnostic alterations, consistent with donuts. MRV 05/14/2023 0918 Local . 01 Electronically signed: . Isabel Kent MD, Pathologist NPI- [id number] . 01 Gross description: . A. Received in formalin labeled with the patient's name, and sigmoid colon consists of a single segment of large bowel measuring 11.2 cm in length and 3.7 cm in external diameter. The serosal surface is pink-fernandez and smooth with a red to brown, ragged area, 2.7 cm from the closest margin. The external surface is inked black. A moderate amount of attached pericolonic fat is noted. Both ends are stapled. The segment of bowel is opened to reveal the usual fernandez plicated folds with an area of stricture measuring 3.8 cm in length, and 2.7 cm from the closest surgical edge. The wall measures up to 1.0 cm in thickness. Multiple diverticula are noted measuring up to 1.8 cm in depth. No definitive lesions are seen. No readily apparent lymph node candidates are identified. Engine Cleaner sections are submitted as follows: A1-A2: Each margin, shave. A3: Area of stricture. A4: Diverticula. B. Received in formalin labeled with the patient's name, and anastomosis donut consist of two angular fragments of fernandez-brown mucosa measuring 1.9 x 1.5 x 1.0 cm and 2.0 x 1.5 x 1.3 cm. The staple lines are removed to reveals fernandez-brown to white roughened cut surfaces. A public relations representative section of each fragment is submitted in cassette B1. ([id number]) /MRV 05/03/2023 1846 Local . 01 Pathologist provided ICD-10: K57.80 . 01 CPT . 275089, 200943 Specimen Comment: A courtesy copy of this report has been sent to [phone] Performed at: 01 [facility] [address] [place] [address] [address], [place], [place] [id number] MD August Ventura MD Phone: [phone]
[2023-05-01] MEDS: LACTATED RINGERS 1,000 ML 100 ML IV ×2 (06:54→18:06)
[2023-05-01] MEDS: ACETAMINOPHEN 325 MG TABLET 975 MG PO (06:57)
[2023-05-01] MEDS: PIPERACILLIN/TAZO 4.5 GM in SODIUM CHLORIDE 0.9% 100 ML IV (08:02)
--- NOTE | 2023-05-01 08:41 | SUR.OPER ---
Supine on padded OR bed, head on pillow, arms padded and tucked at sides, legs uncrossed, safety belt at thigh, tape over blanket over lower legs .
[2023-05-01] MEDS: BUPIVACAINE 0.25% (PF) VIAL 30 ML INJ (10:33)
[2023-05-01] MEDS: BUPIVACAINE LIPOSOME 266 MG/20 ML VIAL INJ (11:29)
--- NOTE | 2023-05-01 11:52 | PM.OP.1 ---
Operative Date/Time/Diagnoses Date of procedure: 05/01/23 Time of procedure: 11:52 Pre-op diagnosis: diverticulitis Post-op diagnosis: same Procedure & Clinicians Procedure: laparoscopic assisted sigmoid colectomy with splenic flexure mobilization umbilical hernia repair Same procedure as scheduled: Yes Indications: 52-year-old man who has a history of recurrent and complicated diverticulitis. Numerous episodes over the past 10 years and 1 episode at least involving perforation and abscess formation. He is here today for elective laparoscopic sigmoid colectomy. Surgeon: Dk Dc Technology Professional: Seymour Garcia Anesthesia Type: General Operative Notes Findings: sigmoid adherent to the pelvic side at the site of previous perforation Specimen(s): other (sigmoid colon, anastamotic donuts) Estimated Blood Loss (mL): 100 Procedure in detail: Patient was brought to the operating room placed supine on the table. Bilateral lower extremity compression devices were applied. General anesthesia was induced he was intubated with an endotracheal tube. Received Zosyn prior to skin incision. Christian catheter was sterilely placed and then he was prepped and draped in sterile fashion. Time-out was performed. A infraumbilical incision was made and the abdomen was entered atraumatically. A 12 mm balloon trocar was then placed into the abdomen and pneumoperitoneum was established. A general inspection of the abdomen was made there was no evidence of injury upon entry and there was noted diverticular disease in the left lower quadrant. Additional 5 mm working ports were placed in the suprapubic left lower quadrant and right lower quadrant. We began by mobilizing the sigmoid colon off of its lateral attachments following the line of Toldt superiorly to the level of the spleen. We then turned our attention to the pelvis. Where the sigmoid colon had previously perforated it had sealed itself to the abdominal sidewall. I used the suction brake linings coater bluntly to dissect here but despite this I was unable to safely take down the colon off the abdominal wall and we had not yet been able to visualize the left ureter which I assumed could be pulled up in this adhesion. At this point we converted to an open operation. A infraumbilical midline incision was made and a self-retaining retractor placed. The sigmoid was ultimately taken down off the sidewall using finger fracture which demonstrated a rind of inflammatory tissue. An extensive search for the left ureter was made and despite this it could not be identified. As we are unable to identify the ureter the patient received methylene blue via IV and blue dye was noted within the Christian catheter bag there was no evidence of blue dye within the abdomen to suggest a ureter injury. At this point we divided the sigmoid colon. Window within the mesentery was made and then the colon was divided using a ARIANNA stapler 75 mm blue load where the sigmoid colon was soft and pliable. The mesentery was then taken with the ligature extremely close to the colon as the location of the left ureter had not been definitively identified. The colon was then divided at the sigmoid rectal junction noted by the convergence of the tenia. This area was also free of disease. Specimen was removed from the abdomen and passed off the field labeled sigmoid colon. We obtained slightly more length on the descending colon by dividing the gastrocolic ligament the lesser sac was opened and then the dissection was carried lateral to the spleen dropping the transverse colon which provided adequate length for the anastomosis. The end of the staple line was then excised the rectum was sized and we selected a 31 mm EEA stapler. The anvil was then placed into the colon and a pursestring suture was fashion with PDS suture. Under direct visualization after ensuring that there were no twists or kinks and that the anastomosis would not lie under tension the anvil and stapler were mated. The stapler was fired and 2 intact anastomotic donuts returned. The colonoscope was then inserted into the rectum and insufflated the anastomosis was held under saline and there was no evidence of leak. This point the abdomen was copiously lavaged with sterile saline and hemostasis was verified. The anastomosis was checked once again to ensure that it was well perfused and without tension and widely patent. This point the abdomen was closed. There was a umbilical hernia and the fascial defect was excised exposing good fascia on either side the umbilical skin was freed from the underlying tissue. The fascia was then closed in running fashion using 1. PDS suture. The subcutaneous tissue was then reapproximated using Vicryl suture and the umbilicus tacked to the subcutaneous tissue. Skin was then closed with alyssia the sponge and instrument count at the end of the operation was correct. The patient emerged from anesthesia was transferred to the recovery room in stable condition. The assistance of Mr. Jose AGUILAR was necessary for appropriate exposure and formation of the anastomosis Complications: none Post-operative Condition: stable Disposition: Acute Care
[2023-05-01] MEDS: OXYCODONE IR 5 MG TABLET PO ×3 (12:51→21:10)
[2023-05-01] MEDS: ACETAMINOPHEN 325 MG TABLET 650 MG PO ×3 (12:51→23:02)
[2023-05-01] MEDS: atenoloL 25 MG TABLET PO (13:21)
[2023-05-01] MEDS: ALPRAZolam 0.5 MG TABLET PO ×2 (17:12→23:02)
[2023-05-01] MEDS: CELECOXIB 200 MG CAPSULE PO (21:09)
[2023-05-01] MEDS: TRAZODONE 50 MG TABLET 100 MG PO (21:10)
[2023-05-02] VITALS (12 sets, daily range): BP systolic 86–106; BP diastolic 50–61; PULSE 68–78; RESP 16–79; TEMP 36.4–37.6; O2SAT 93–97
[2023-05-02] MEDS: OXYCODONE IR 5 MG TABLET PO ×6 (02:54→20:09)
[2023-05-02] MEDS: LACTATED RINGERS 1,000 ML 100 ML IV (03:04)
[2023-05-02] MEDS: ACETAMINOPHEN 325 MG TABLET 650 MG PO ×3 (05:46→18:18)
[2023-05-02] MEDS: ALPRAZolam 0.5 MG TABLET PO ×2 (05:46→18:18)
[2023-05-02 05:51] LABS: Add Manual Diff / Slide Review NO; Basophils Absolute Auto 0 /uL (0-100); Basophils Percent Auto 0.1 % (0-2); Eosinophils Absolute Auto 100 /uL (0-450); Eosinophils Percent Auto 0.9 % (2-4); Hematocrit 33.4 % (41-53); Hemoglobin 11.8 g/dL (13.5-17.5); Lymphocytes Absolute Auto 1700 /uL (1100-4500); Lymphocytes Percent Auto 16.8 % (25-40); Mean Corpuscular HGB Conc 35.2 % (30-36); Mean Corpuscular Hemoglobin 32.2 PG (26-34); Mean Corpuscular Volume 91.5 fL (80-100); Monocytes Absolute Auto 1100 /uL (0-900); Monocytes Percent Auto 10.5 % (3-14); Neutrophils Absolute Auto 7400 /uL (1500-7000); Neutrophils Percent Auto 71.7 % (50-75); Platelet Count 239 X10^3/uL (150-400); Red Blood Cell Count 3.65 X10^6/uL (4.5-5.9); Red Cell Distribution Width 13.8 % (11.6-14.8); White Blood Cell Count 10.3 X10^3/uL (4.5-11.0)
[2023-05-02] MEDS: GUM PO ×2 (05:58→08:44)
[2023-05-02] MEDS: NICOTINE 4 MG PO ×2 (05:58→08:44)
[2023-05-02 06:11] LABS: BUN Creatinine Ratio 11.1 (6-22); Blood Urea Nitrogen 13 mg/dL (9-20); Calcium 7.8 mg/dL (8.4-10.2); Carbon Dioxide 30 mmol/L (22-32); Chloride 96 mmol/L (98-107); Estimated Glomerular Filt Rate > 60 mL/min (>60); Glucose 94 mg/dL (70-100); HEMOLYSIS < 15 (0-50); Potassium 3.2 mmol/L (3.4-5.1); Sodium 129 mmol/L (137-145)
--- NOTE | 2023-05-02 08:22 | CM.DANOTE ---
Initial DCP Assessment Note Pt is a 52 yo male, resident of [place], POD1 laparoscopic sigmoid colectomy by DR Dc PCP Efe Breen. Payer: Brandie Reviewed chart, patient is indp and active at baseline and plans to return home upon discharge with assist from his landlord that loves near him No barriers identified at this time to patient's safe discharge home w/family to assist; CM team will plan to follow closely in case any DC needs or concerns arise. close outpatient f/u recommended. MARYBETH Pretty Discharge Planning/Care Management CM Discharge Assessment Start: 05/02/23 08:20 Freq: Status: Active Protocol: Document 05/02/23 08:20 MAURIZIO (Rec: 05/02/23 08:22 [id number]) Discharge Planning Assessment Assigned Income Auditor MARYBETH Rangel DPOA/Assigned Designee Name Praveena Young (sister) . Ellie (good friend) [phone] Advance Directives? No Advance Directives on File No History Provided By Patient,Medical Record Prior Living Arrangements Apartment/Condo Household Members none Type of transporation used prior to Drives own vehicle admit Independent with ADL's Yes Is patient alert and oriented? Yes Barriers to Discharge No Comment Scheduled laparoscopic sigmoid colectomy, patient plans to discharge home w/assist from his landlord, as needed Discharge Plan Home Transportation Arrangement Friend or family Referrals Initiated None needed Additional Comment CM team following in case needs arise
[2023-05-02] MEDS: CELECOXIB 200 MG CAPSULE PO ×2 (08:36→20:09)
[2023-05-02] MEDS: ENOXAPARIN 40 MG/0.4 ML SYRINGE SUBCUT (08:36)
[2023-05-02] MEDS: FLUoxetine 20 MG CAPSULE PO (08:36)
[2023-05-02] MEDS: POTASSIUM CHLORIDE 20 MEQ/15 ML UDC 40 MEQ PO ×2 (09:41→15:19)
--- NOTE | 2023-05-02 11:12 | P.PN_ITS ---
Subjective Subjective Date Patient Seen: 05/02/23 Time Patient Seen: 11:12 Interval history: Tolerant of clear liquid diet. No acute overnight events. Pain is appr opriately controlled. Patient overall feels well. Exam Vital Signs (past 8 hours): - 05/02/23 03:40 05/02/23 07:00 05/02/23 08:00 Temperature 97.6 F 99.6 F Pulse Rate 76 74 Respiratory Rate 16 16 Blood Pressure 86/50 L Pulse Oximetry 94 95 97 Oxygen Delivery Method Room Air Oxygen Flow Rate 0 0 0 Oxygen Delivery Method Room Air Oxygen Flow Rate 0 Narrative Exam Narrative: General adult man alert oriented no acute distress Abdomen soft appropriately tender to palpation. Extremities warm well perfused Objective Labs 05/02/23 05:15 05/02/23 05:15 Labs: Laboratory Results - last 24 hr 05/02/23 05/02/23 05:15 05:15 WBC 10.3 RBC 3.65 L Hgb 11.8 L Hct 33.4 L MCV 91.5 MCH 32.2 MCHC 35.2 RDW 13.8 Plt Count 239 Neut % (Auto) 71.7 Lymph % (Auto) 16.8 L Powell % (Auto) 10.5 Eos % (Auto) 0.9 L Baso % (Auto) 0.1 Neut # (Auto) 7400 H Lymph # (Auto) 1700 Powell # (Auto) 1100 H Eos # (Auto) 100 Baso # (Auto) 0 Sodium 129 L Potassium 3.2 L Chloride 96 L Carbon Dioxide 30 BUN 13 Creatinine 1.17 Estimated GFR > 60 BUN/Creatinine Ratio 11.1 Glucose 94 Calcium 7.8 L [facility] Medical History (Updated 04/23/23 @ 09:09 by Ro Rosas RN) Anxiety Diverticulitis Hernia HTN (hypertension) Surgical History (Updated 04/23/23 @ 09:07 by Ro Rosas RN) Hx of arthroscopy of left knee (~04/2022) Hx of colonoscopy (04/16/23) Social History marital status: unmarried,single household members: none lives independently: Yes occupational status: employed Smoking Status: Current every day smoker alcohol intake: current substance use type: does not use Assessment & Plan Post-op Postoperative Procedures: Procedures Operation Date: 05/01/23 07:45 Actual Procedure Side Surgeon p Laparoscopic Assisted Sigmoid Colectomy Dk Dc MD s Hernia Repair - Umbilical Dk Dc MD Postoperative status narrative: 52-year-old man postoperative day 1 status post laparoscopic assisted sigmoid colectomy for recurrent diverticulitis. He is recovering appropriately at this point. -regular diet -discontinue IV fluid -remove Christian catheter -out of bed ambulate PT consult -SCDs and prophylactic Lovenox.
[2023-05-02] MEDS: atenoloL 25 MG TABLET PO (14:32)
--- NOTE | 2023-05-02 16:07 | PT-IP ANOTE ---
PT eval order received. EMR reviewed. checked on pt and pt refused PT. stated that he just got back to bed and is tired and wants to rest. stated that he will do PT tomorrow.
[2023-05-02] MEDS: TRAZODONE 50 MG TABLET 100 MG PO (20:09)
[2023-05-02] MEDS: HYDROMORPHONE 0.5 MG INJ 1 MG IV (21:55)
[2023-05-03] VITALS: BP 90/51; PULSE 73; RESP 18; TEMP 36.8; O2SAT 94
[2023-05-03] MEDS: OXYCODONE IR 5 MG TABLET PO ×2 (02:12→09:22)
[2023-05-03] MEDS: ALPRAZolam 0.5 MG TABLET PO (02:13)
[2023-05-03] MEDS: atenoloL 25 MG TABLET PO (02:14)
[2023-05-03 02:32] VITALS: BP 102/67; PULSE 77; RESP 16; TEMP 36.4; O2SAT 96
[2023-05-03 03:00] VITALS: O2SAT 96
[2023-05-03] MEDS: ACETAMINOPHEN 325 MG TABLET 650 MG PO (05:31)
[2023-05-03 06:01] LABS: BUN Creatinine Ratio 11.3 (6-22); Blood Urea Nitrogen 9 mg/dL (9-20); Calcium 8.1 mg/dL (8.4-10.2); Carbon Dioxide 30 mmol/L (22-32); Chloride 99 mmol/L (98-107); Estimated Glomerular Filt Rate > 60 mL/min (>60); Glucose 89 mg/dL (70-100); HEMOLYSIS < 15 (0-50); Potassium 3.7 mmol/L (3.4-5.1); Sodium 132 mmol/L (137-145)
[2023-05-03 06:03] LABS: Add Manual Diff / Slide Review NO; Basophils Absolute Auto 0 /uL (0-100); Basophils Percent Auto 0.4 % (0-2); Eosinophils Absolute Auto 200 /uL (0-450); Eosinophils Percent Auto 2.3 % (2-4); Lymphocytes Absolute Auto 1700 /uL (1100-4500); Lymphocytes Percent Auto 18.4 % (25-40); Mean Corpuscular HGB Conc 35.5 % (30-36); Mean Corpuscular Hemoglobin 32.7 PG (26-34); Mean Corpuscular Volume 92.2 fL (80-100); Monocytes Absolute Auto 900 /uL (0-900); Monocytes Percent Auto 9.6 % (3-14); Neutrophils Absolute Auto 6200 /uL (1500-7000); Neutrophils Percent Auto 69.3 % (50-75); Platelet Count 230 X10^3/uL (150-400); Red Blood Cell Count 3.36 X10^6/uL (4.5-5.9); Red Cell Distribution Width 13.6 % (11.6-14.8)
[2023-05-03 07:00] VITALS: O2SAT 97
[2023-05-03 07:49] VITALS: BP 96/61; PULSE 75; RESP 18; TEMP 36.4; O2SAT 94
[2023-05-03] MEDS: CELECOXIB 200 MG CAPSULE PO (08:05)
[2023-05-03] MEDS: FLUoxetine 20 MG CAPSULE PO (08:05)
[2023-05-03] MEDS: ENOXAPARIN 40 MG/0.4 ML SYRINGE SUBCUT (08:05)
--- NOTE | 2023-05-03 11:00 | PT-IP ANOTE ---
Pt d/cd per therapists report from rounds. Pt up in chair and states he is getting around fine. Will d/c PT.
--- NOTE | 2023-05-03 11:09 | PC.NURSE ---
Pt med for discomfort w/good relief. Emiliana dsg midline and 3 lap site CDI MD here to see; orders for D/C received. HL discontinues intact. Home instructions given w/understanding. Pt escorted by staff via W/C to waitng vehicle in stable condition.
--- NOTE | 2023-05-07 08:23 | P.DS_ITS ---
History of Present Illness History of Present Illness Date Patient Seen: 05/03/23 Time Patient Seen: 08: Chief complaint: Laparoscopically Assisted Colectomy Narrative: 52-year-old man with a history of complicated diverticulitis.? Last year he had a 3 cm sigmoid abscess which was treated with IV antibiotic therapy for a few days.? Currently his left lower quadrant pain has resolved and he is afebrile tolerating a diet and having normal bowel function.? Over the past 10 years he is had 2-3 episodes of uncomplicated diverticulitis per year.? He is here today for an elective laparoscopic sigmoid colectomy Discharge Providers Provider Date of admission: 05/01/23 05:55 Discharge Date: 05/03/23 Primary care physician: Efe Breen MD Consults: 05/01/23 14:22 Consult to Dietitian, Adult Routine Comment: Reason For Exam: Increased weight loose d/t admit. DX. 05/02/23 11:11 Consult to Physical Therapy Evaluate & Treat Comment: Physician Instructions: Evaluate and Treat Discharge provider: Dk Dc MD Summary Hospital Course Discharge Diagnosis: Diverticulitis Hospital Course: Patient underwent a laparoscopic-assisted sigmoid colectomy May 01 2023. Operation was notable for a very adherent sigmoid colon to its lateral structures resulting in a conversion to open procedure. He tolerated the operation well. At discharge he was tolerating a regular diet, ambulatory, and pain was well controlled with oral medication. Exam Vital Signs (past 8 hours): Oxygen Delivery Method Room Air Oxygen Flow Rate 0 Narrative Exam Narrative: General adult man alert oriented no acute distress Abdomen soft nontender nondistended. Midline dressing clean dry intact. Extremities warm well perfused. Objective Labs 05/03/23 05:24 05/03/23 05:24 [facility] Medical History (Updated 04/23/23 @ 09:09 by Ro Rosas RN) Anxiety Diverticulitis Hernia HTN (hypertension) Surgical History (Updated 04/23/23 @ 09:07 by Ro Rosas RN) Hx of arthroscopy of left knee (~04/2022) Hx of colonoscopy (04/16/23) Social History marital status: unmarried,single household members: none lives independently: Yes occupational status: employed Smoking Status: Current every day smoker alcohol intake: current substance use type: does not use Discharge Plan Discharge Plan Patient Disposition: Home Provider Discharge Comment: -Okay to shower but avoid submerge wounds in water until seen in follow-up. -No lifting >20 lbs x 4 weeks. -Walking only for exercise for 4 weeks. -No driving while taking narcotics -diet as tolerated Discharge orders & Medications Prescriptions: New docusate sodium [Colace] 100 mg capsule 100 mg PO BID Qty: 30 0RF oxycodone 5 mg tablet 5 mg PO Q6H PRN (Reason: pain) Qty: 30 0RF acetaminophen [Tylenol] 325 mg capsule 650 mg PO QID PRN (Reason: pain) Qty: 60 0RF Continued atenolol 25 mg PO BID trazodone 100 mg Tablet 100 mg PO BEDTIME ibuprofen 200 mg Tablet 400 mg PO BID PRN (Reason: Pain) nicotine (polacrilex) 4 mg 4 mg PO PRN PRN (Reason: Nicotine Cravings) Patient Comments: patients own med fluoxetine 20 mg capsule 20 mg PO DAILY Follow up/Referrals: Dk Dc MD [Physician] - 1 Week Diet/Activity/Treatments Diet: Regular Skin/Wound/Dressing Care Report to your healthcare provider any signs of infection, such as:: chills, fever, increased pain, unusual drainage and unusual redness Visit Report/Discharge Packet Stand Alone Forms: Patient Portal/API, Stroke Signs & Symptoms Discharge Data Primary Care Provider: Efe Breen Discharges patient from system. Discharge Date/Time: 05/03/23 11:10
== END 2023-05-03 11:10 | disposition home or self-care (01) | DRG 330 ==
PROVIDERS: Admitting Provider Surgery; PCP Family Medicine; Referring Provider Nurse Anesthetist, Certified Registered; Visit Provider Surgery
PROC: 0DTE0ZZ Resection of Large Intestine, Open Approach (ICD-10-PCS; principal; 2023-05-01 07:45)
PROC: 0WJF4ZZ Inspection of Abdominal Wall, Percutaneous Endoscopic Approach (ICD-10-PCS; 2023-05-01 07:45)
DX: K57.32 Diverticulitis of large intestine without perforation or abscess without bleeding (principal); E87.1 Hypo-osmolality and hyponatremia; K42.9 Umbilical hernia without obstruction or gangrene; F17.290 Nicotine dependence, other tobacco product, uncomplicated; I10 Essential (primary) hypertension; F41.9 Anxiety disorder, unspecified; K66.0 Peritoneal adhesions (postprocedural) (postinfection)
CPT/HCPCS: 36415; 44204; 44213; 80048; 82962; 85025; C9290; J1100; J1170; J1650; J1885; J2405; J2543; J3010; J3490

== ENCOUNTER → 2023-05-24 09:49 | Outpatient (CLI) | payer OTHER, SELFPAY ==
[2023-05-01 14:13] VITALS: BMI 25.0
[2023-05-24 11:37] LABS: Appearance Urine UA SL CLOUDY; Bilirubin Urine UA 1+ (NEGATIVE); Color Urine UA YELLOW; Glucose Urine UA NEGATIVE (Negative); Ketones Urine UA NEGATIVE (NEGATIVE); Leukocyte Esterase Urine UA NEGATIVE (NEGATIVE); Nitrite Urine UA NEGATIVE (Negative); Occult Blood Urine UA 3+ (Negative); Protein Urine UA TRACE (Negative); Specific Gravity Urine UA 1.025 (1.000-1.035); pH Urine UA 5.5 (4.5-8.0)
[2023-05-24 11:48] LABS: Bacteria Urine None Seen; Culture Indicated Urine Cult Not Indicated; Ictotest Urine Negative (Negative); Mucus Urine 1+ (Negative); RBC Urine >100/HPF (0-5/HPF); Squamous Epithelial Cell Urine None Seen (0-5/HPF); WBC Urine 0-1/HPF (0-5/HPF)
== END ==
PROVIDERS: PCP Family Medicine; Referring Provider Surgery; Visit Provider Surgery
DX: R31.9 Hematuria, unspecified (principal)
CPT/HCPCS: 81001

== ENCOUNTER → 2025-04-19 16:50 | Outpatient (CLI) | payer OTHER, SELFPAY ==
[2023-05-01 14:13] VITALS: BMI 25.0
--- NOTE | 2025-04-19 16:54 | DI.RAD.S_ITS ---
PROCEDURE: XR ANKLE RT MIN 3V INDICATIONS: Acute right ankle pain TECHNIQUE: 3 views of the ankle were acquired. COMPARISON: None. FINDINGS: Bones: Transverse distal fibular metaphyseal fracture with medial displacement of the proximal fracture fragment. Ankle mortise is maintained Soft tissues: No tibiotalar joint effusion. Achilles tendon appears normal. IMPRESSION: Minimally displaced transverse distal fibular metaphyseal fracture Approved by: Darryl Hayward M.D. on 04/20/2025 at 13:26
== END ==
PROVIDERS: PCP Family Medicine; Referring Provider Family Medicine; Visit Provider Family Medicine
DX: S89.301A Unspecified physeal fracture of lower end of right fibula, initial encounter for closed fracture (principal); M25.571 Pain in right ankle and joints of right foot
CPT/HCPCS: 73610

== ENCOUNTER 2025-06-25 15:03 | Inpatient (IN) | payer OTHER, SELFPAY ==
[2023-05-01 14:13] VITALS: BMI 25.0
[2025-06-25] VITALS (24 sets, daily range): BP systolic 122–189; BP diastolic 58–88; PULSE 97–149; RESP 16–35; TEMP 37.6; O2SAT 88–99
--- NOTE | 2025-06-25 15:10 | DI.RAD.S_ITS ---
PROCEDURE: XR CHEST 1V INDICATIONS: altered mental status TECHNIQUE: One view of the chest was acquired. COMPARISON: [facility], CT, CT HEAD/BRAIN WO CON, 06/25/2025, 15:20. FINDINGS: Surgical changes and devices: None. Lungs and pleura: Lungs are clear. No pleural effusions or pneumothorax. Mediastinum: The cardiac contours are within normal limits. The aorta demonstrates calcification and tortuosity. Bones and chest wall: No suspicious bony lesions. There is a remote, healed right clavicle fracture. Age-appropriate bony degenerative changes are seen. Overlying soft tissues appear unremarkable. IMPRESSION: No acute cardiopulmonary abnormality is seen. No focal infiltrates are seen. Dictated by: Uzair Lopez M.D. on 06/25/2025 at 14:42 Approved by: Uzair Lopez M.D. on 06/25/2025 at 14:42
--- NOTE | 2025-06-25 15:10 | DI.CT.S_ITS ---
PROCEDURE: CT HEAD/BRAIN WO CON INDICATIONS: altered mental status TECHNIQUE: Noncontrast 4.5 mm thick angled axial sections acquired from the foramen magnum to the vertex, with coronal and sagittal reformats. For radiation dose reduction, the following was used: automated exposure control, adjustment of mA and/or kV according to patient size. COMPARISON: [facility], CR, XR CHEST 1V, 06/25/2025, 15:15. FINDINGS: Image quality: Diagnostic. CSF spaces: Basal cisterns are patent. No extra-axial fluid collections. Ventricles are normal in size and shape. Brain: No midline shift. No intracranial mass effect or hemorrhage. Mcallister- white matter interface is normal. Skull and face: Calvarium and visualized facial bones are intact, without suspicious lesions. Sinuses: Visualized sinuses and mastoids are clear. IMPRESSION: No imaging explanation is found for this patient's presenting symptoms. To the limits of this noncontrast study, no findings of intracranial masses or mass effect can be seen. Dictated by: Uzair Lopez M.D. on 06/25/2025 at 14:42 Approved by: Uzair Lopez M.D. on 06/25/2025 at 14:43
--- NOTE | 2025-06-25 15:11 | ED_ITS ---
HPI - Altered Mental Status General Chief Complaint: Altered Mental Status Stated Complaint: AMS Time Seen by Provider: 06/25/25 15:08 Source: patient, EMS, RN notes reviewed and old records reviewed Mode of arrival: EMS Limitations: altered mental status History of Present Illness HPI narrative: 54-year-old male reported history of chronic alcohol use, hypertension presents with complaint of altered mental status. Patient has a wellness check yesterday with law enforcement they felt he was at his baseline sometime around 9:00 a.m. last night and today Camilo ndiaye checked on him cause he had put his trash out. EMS was contacted patient is altered, glucose was normal with EMS. They state he has answered yes no, eyes are open he follows commands does not appear altered. They noted about 24 nicotine gums that are 4 mg of peace which patient indicated he had used in the last 24 hours. He also indicated he had a bottle of Bacardi today. Patient can tell me his name, he knows he is at the emergency department, he follows commands appropriately but has difficulty getting his words out. No slurred speech more aphasic. He has a bottle of clonidine but no other prescriptions with him. No known drug allergies. Pre EMS daily smoker, indicates he drinks about a 5th daily, no recreational drugs reported. Dr. Breen is his primary care physician. Related Data Home Medications ?Medication ?Instructions ?Recorded ?Confirmed fluoxetine 20 mg capsule 20 mg PO DAILY 02/21/23 09/10/15 ibuprofen 200 mg tablet 400 mg PO BID PRN Pain 04/2305/24/23 trazodone 100 mg tablet 100 mg PO BEDTIME 04/23/23 0 05/24/23 atenolol 25 mg PO BID 04/25/23 nicotine (polacrilex) 4 mg PO PRN PRN Nicotine Carbon [employer] Supervisor vings 05/01/23 05/24/23 Previous Rx's ?Medication ?Instructions ?Recorded acetaminophen 325 mg capsule 650 mg (2 x 325 mg) PO QI D PRN 05/03/23 (Tylenol) pain #60 caps docusate sodium 100 mg capsule 100 mg PO BID #30 caps 05/03/23 (Colace) Allergies Allergy/AdvReac Type Severity Reaction Status Date / Time No Known Drug Allergies Allergy Verified 06/25/25 15:09 Review of Systems Review of Systems ROS Unobtainable: All systems reviewed & are unremarkable except as noted in HPI and below Patient History Medical History HTN (hypertension) Anxiety Hernia Diverticulitis Surgical History Hx of arthroscopy of left knee (~04/2022) Hx of colonoscopy (04/16/23) Social History marital status: unmarried,single household members: none lives independently: Yes occupational status: employed Smoking Status: Former smoker alcohol intake: current substance use type: does not use alcohol intake frequency: 0-2 drinks per day Exam Narrative Exam Narrative: GEN: well nourished, male, alert and oriented x 2 self and location, patient appears to be in moderate distress. HEENT: Atraumatic, pupils are equal round reactive to light, extraocular movements are intact, nares are clear, TMs are clear with no fluid, there is no conjunctival pallor. Throat is clear without any exudates, erythema, tonsillar enlargement or uvular deviation, rate of 2 of motion. HEART: Tachycardic but Regular rate and rhythm without murmur, clicks, rubs. Positive pulses are equal in upper and lower extremities LUNGS:Lungs clear to auscultation, no wheezes, rales, crackles, chest moves symmetrically, no tachypnea accessory muscle use ABD:bowel sounds normal, soft, non-tender, no guarding, rebound, rigidity, no masses noted, no hepatosplenomegaly, patient has some dried yellow emesis around his mouth and on his chest. :No CVA tenderness. MSCL: Non-tender, no muscle atrophy, muscles strength 5/5 upper and lower extremities, full range of motion, nursing care partner equal bilaterally. NEURO:CN 2-12 intact, sensation normal, no dysarthria slightly aphasic. SKIN: No rash, erythema in the skin changes Initial Vital Signs Initial Vital Signs: Vital Signs Pulse Rate 120 H 06/25/25 15:04 Respiratory Rate 21 06/25/25 15:04 Blood Pressure 145/88 H 06/25/25 15:04 Pulse Oximetry 97 06/25/25 15:04 Scores GCS Fred coma scale eye opening: Spontaneous Fred coma scale verbal response: Confused [place] coma scale motor response: Obey commands [place] coma scale total score: 14 Course Orders Ordered: ED Orders 06/25/25 15:08 EKG-12 Lead Stat 06/25/25 15:10 CT head/brain wo con Stat XR chest 1V Stat 06/25/25 15:15 Acetaminophen Stat Complete Blood Count AUTO DIFF Stat Comprehensive Metabolic Panel Stat Ethanol (ETOH) Stat Lactate (Lactic Acid) Stat Lipase Stat Osmolality, Serum Stat PTT Partial Thromboplastin Noe Stat Procalcitonin Stat Prolactin Stat Prothrombin Time INR Stat Salicylate Stat Thyroid Stimulating Hormone Stat Troponin & CK Cardiac Panel Stat 06/25/25 15:29 VBG [Venous Blood Gas] DAILY 06/25/25 15:40 Ammonia (NH3) Stat Blood Culture Stat 06/25/25 15:45 Venous Blood Gas Routine 06/25/25 17:10 Urinalysis and Microscopic Stat Urine Culture Stat Urine Drug Screen, Rapid Stat Lorazepam (Lorazepam 2 Mg/Ml Inj) 0 mg IV CIWAPRN PRN; Protocol PRN Reason: Alcohol Withdrawal Lorazepam (Lorazepam 1 Mg Tablet) 0 mg PO CIWAPRN PRN; Protocol PRN Reason: Alcohol Withdrawal Multivitamins (Multivitamin 1 Tablet) 1 tab PO DAILY NAJMA Discontinued Medications Sodium Chloride (Normal Saline 0.9%) 1,000 mls @ 1,000 mls/hr IV BOLUS ONE Stop: 06/25/25 16:07 Last Admin: 06/25/25 16:06 Dose: 1,000 mls/hr Documented By: CHEMA Sodium Chloride (Normal Saline 0.9%) 1,000 mls @ 1,000 mls/hr IV BOLUS ONE Stop: 06/25/25 17:44 Last Admin: 06/25/25 17:38 Dose: 1,000 mls/hr Documented By: CHEMA Phenobarbital (Phenobarbital 65 Mg/Ml Vial) 260 mg IV NOW ONE Stop: 06/25/25 15:19 Last Admin: 06/25/25 16:06 Dose: 260 mg Documented By: CHEMA Phenobarbital (Phenobarbital 65 Mg/Ml Vial) 130 mg IV NOW ONE Stop: 06/25/25 17:36 Last Admin: 06/25/25 17:50 Dose: 130 mg Documented By: AURELIO Vital Signs Vital signs: Vital Signs - 8 hr 06/25/25 15:04 06/25/25 15:04 06/25/25 15:09 Temperature 99.6 F Pulse Rate 120 H 117 H Respiratory Rate 21 18 Blood Pressure 145/88 H 145/88 H Pulse Oximetry 97 99 Oxygen Delivery Method Room Air 06/25/25 15:31 06/25/25 16:00 06/25/25 16:13 Temperature Pulse Rate 118 H 120 H 123 H Respiratory Rate Blood Pressure Pulse Oximetry 93 93 96 Oxygen Delivery Method 06/25/25 16:13 06/25/25 16:30 06/25/25 16:30 Temperature Pulse Rate 108 H Respiratory Rate 16 Blood Pressure 142/85 H 145/66 H Pulse Oximetry 97 Oxygen Delivery Method 06/25/25 17:00 06/25/25 17:00 06/25/25 17:30 Temperature Pulse Rate 149 H 119 H Respiratory Rate 35 H 25 H Blood Pressure 145/86 H Pulse Oximetry 98 97 Oxygen Delivery Method 06/25/25 17:31 06/25/25 17:31 Temperature Pulse Rate 119 H Respiratory Rate 25 H Blood Pressure 166/79 H Pulse Oximetry 97 Oxygen Delivery Method MDM - Altered Mental Status Lab Data 06/25/25 15:15 06/25/25 15:15 Labs: Lab Results 06/25/25 06/25/25 06/25/25 Range/Units 15:15 15:40 15:45 WBC 11.0 (4.5-11.0) X10^3/uL RBC 4.54 (4.5-5.9) X10^6/uL Hgb 15.3 (13.5-17.5) g/dL Hct 44.1 (41-53) % MCV 97.0 (80-100) fL MCH 33.6 (26-34) PG MCHC 34.6 (30-36) % RDW 14.1 (11.6-14.8) % Plt Count 316 (150-400) X10^3/uL Neut % (Auto) 83.0 H (50-75) % Lymph % (Auto) 11.0 L (25-40) % [place] % (Auto) 5.6 (3-14) % Eos % (Auto) 0.0 L (2-4) % Baso % (Auto) 0.4 (0-2) % Neut # (Auto) 9100 H (5972-5250) /uL Lymph # (Auto) 1200 (4232-9970) /uL [place] # (Auto) 600 (0-900) /uL Eos # (Auto) 0 (0-450) /uL Baso # (Auto) 0 (0-100) /uL PT 10.6 (9.4-12.5) SECONDS INR 0.9 (0.9-1.3) APTT 27 (25.1-36.5) SECONDS VBG pH 7.36 (7.33-7.43) VBG pCO2 33.0 L (45-50) mmHg VBG pO2 58 H (35-45) mmHg VBG HCO3 19 L (24-28) mmol/L VBG Total CO2 18 L (24-29) mmol/L VBG O2 Saturation 89 H (70-75) % VBG Base Excess -5.8 L (0-4) mmol/L FiO2 % 21.0 % % Sodium 138 (137-145) mmol/L Potassium 4.3 (3.4-5.1) mmol/L Chloride 102 (98-107) mmol/L Carbon Dioxide 14 L (22-32) mmol/L BUN 15 (9-20) mg/dL Creatinine 0.95 (0.66-1.25) mg/dL Estimated GFR > 60 (>60) mL/min BUN/Creatinine Ratio 15.8 (6-22) Glucose 129 H (70-99) mg/dL Lactate 6.1 H* (0.7-2.1) mmol/L Calcium 8.3 L (8.4-10.2) mg/dL Total Bilirubin 0.6 (0.2-1.3) mg/dL AST 110 H (17-59) IU/L ALT 40 (<50) IU/L Alkaline Phosphatase 82 (38-126) U/L Ammonia < 9 L (9-30) umol/L Total Creatine Kinase 210 H (55-170) U/L Troponin I 0.013 (0.01-0.034) ng/mL Total Protein 8.4 H (6.3-8.2) g/dL Albumin 4.9 (3.5-5.0) g/dL Globulin 3.5 (1.7-4.1) g/dL Albumin/Globulin Ratio 1.4 (1.0-2.8) Lipase 151 (23-300) U/L Procalcitonin 0.046 (<0.5) ng/mL TSH 0.164 L (0.47-4.68) uIU/mL Prolactin 20.1 H (3.7-17.9) ng/mL Urine Color Urine Appearance Urine pH (4.5-8.0) Ur Specific [place] (1.000-1.035) Urine Protein (Negative) Urine Glucose (UA) (Negative) g/dL Urine Ketones (NEGATIVE) Urine Occult Blood (Negative) Urine Nitrate (Negative) Urine Bilirubin (NEGATIVE) Urine Urobilinogen (0.2) E.U./dL Ur Leukocyte Esterase (NEGATIVE) Urine RBC (0-5/HPF) Urine WBC (0-5/HPF) Ur Squamous Epith Cells (0-5/HPF) Urine Bacteria (None) Ur Culture Indicated? Vol Urine Centrifuged Salicylates < 1.0 (<20) mg/dL U Opiates 300ng/mL cut (Negative) Ur Oxycodone Screen (Negative) Urine Methadone Screen (Negative) Acetaminophen < 10 (10-30) ug/mL Ur Barbiturates Screen (Negative) U Tricyclic Antidepress (Negative) Ur Phencyclidine Scrn (Negative) Ur Amphetamines Screen (Negative) U Methamphetamines Scrn (Negative) Ur MDMA Scrn (Ecstasy) (Negative) U Benzodiazepines Scrn (Negative) Urine Cocaine Screen (Negative) U Marijuana (THC) Screen (Negative) Urine Specific [place] (Normal) Ethyl Alcohol 431 H* (<10) mg/dL Ur Creatinine (Normal) 06/25/25 06/25/25 06/25/25 Range/Units 17:10 17:10 17:40 WBC (4.5-11.0) X10^3/uL RBC (4.5-5.9) X10^6/uL Hgb (13.5-17.5) g/dL Hct (41-53) % MCV (80-100) fL MCH (26-34) PG MCHC (30-36) % RDW (11.6-14.8) % Plt Count (150-400) X10^3/uL Neut % (Auto) (50-75) % Lymph % (Auto) (25-40) % [place] % (Auto) (3-14) % Eos % (Auto) (2-4) % Baso % (Auto) (0-2) % Neut # (Auto) (3191-4975) /uL Lymph # (Auto) (5108-7562) /uL [place] # (Auto) (0-900) /uL Eos # (Auto) (0-450) /uL Baso # (Auto) (0-100) /uL PT (9.4-12.5) SECONDS INR (0.9-1.3) APTT (25.1-36.5) SECONDS VBG pH (7.33-7.43) VBG pCO2 (45-50) mmHg VBG pO2 (35-45) mmHg VBG HCO3 (24-28) mmol/L VBG Total CO2 (24-29) mmol/L VBG O2 Saturation (70-75) % VBG Base Excess (0-4) mmol/L FiO2 % % Sodium (137-145) mmol/L Potassium (3.4-5.1) mmol/L Chloride (98-107) mmol/L Carbon Dioxide (22-32) mmol/L BUN (9-20) mg/dL Creatinine (0.66-1.25) mg/dL Estimated GFR (>60) mL/min BUN/Creatinine Ratio (6-22) Glucose (70-99) mg/dL Lactate 4.5 H* (0.7-2.1) mmol/L Calcium (8.4-10.2) mg/dL Total Bilirubin (0.2-1.3) mg/dL AST (17-59) IU/L ALT (<50) IU/L Alkaline Phosphatase (38-126) U/L Ammonia (9-30) umol/L Total Creatine Kinase (55-170) U/L Troponin I (0.01-0.034) ng/mL Total Protein (6.3-8.2) g/dL Albumin (3.5-5.0) g/dL Globulin (1.7-4.1) g/dL Albumin/Globulin Ratio (1.0-2.8) Lipase (23-300) U/L Procalcitonin (<0.5) ng/mL TSH (0.47-4.68) uIU/mL Prolactin (3.7-17.9) ng/mL Urine Color Yellow Urine Appearance Clear Urine pH 5.5 Normal (4.5-8.0) Ur Specific [place] 1.025 (1.000-1.035) Urine Protein 2+ H (Negative) Urine Glucose (UA) Negative (Negative) g/dL Urine Ketones 3+ H (NEGATIVE) Urine Occult Blood 1+ H (Negative) Urine Nitrate Negative (Negative) Urine Bilirubin Negative (NEGATIVE) Urine Urobilinogen 0.2 (0.2) E.U./dL Ur Leukocyte Esterase Negative (NEGATIVE) Urine RBC None seen (0-5/HPF) Urine WBC None seen (0-5/HPF) Ur Squamous Epith Cells None seen (0-5/HPF) Urine Bacteria None seen (None) Ur Culture Indicated? Cult not indicated Vol Urine Centrifuged 10ml (spun) Salicylates (<20) mg/dL U Opiates 300ng/mL cut Negative (Negative) Ur Oxycodone Screen Negative (Negative) Urine Methadone Screen Negative (Negative) Acetaminophen (10-30) ug/mL Ur Barbiturates Screen Negative (Negative) U Tricyclic Antidepress Negative (Negative) Ur Phencyclidine Scrn Negative (Negative) Ur Amphetamines Screen Negative (Negative) U Methamphetamines Scrn Negative (Negative) Ur MDMA Scrn (Ecstasy) Negative (Negative) U Benzodiazepines Scrn Negative (Negative) Urine Cocaine Screen Negative (Negative) U Marijuana (THC) Screen Positive H (Negative) Urine Specific [place] Normal (Normal) Ethyl Alcohol (<10) mg/dL Ur Creatinine Normal (Normal) ECG Data Attestation: I personally reviewed and interpreted this ECG as follows: Prior ECG tracings: not available for review Interpretation: Sinus tachycardia rate of 117 WI 118 QRS is 78 QTC of 471, no acute ST elevation depression noted. MDM Narrative Medical decision making narrative: Labs show white count 11 hemoglobin of 15 platelets of 316 predominance of neutrophils. Coags are normal. Chemistries show a CO2 of 14 BUN and creatinine are normal electrolytes are appropriate glucose is 129 lactate 6.1, AST is 110 bilirubin is normal ALT is 40 with a alk-phos 82. Lipase is 151. Ammonia is less than 9, total CK is 210 with a troponin 0.013 total protein 8.4 with a prolactin of 20.1 Tylenol, salicylate are both negative, ETOH is 431. Patient had a VBG with a pH of 7.36 pCO2 of 33 PO2 of 58, bicarbonate 18. EKG shows sinus tachycardia Head CT imaging explanation found for this patient's presenting symptoms. Chest x-ray no acute cardiopulmonary abnormality. No focal infiltrates. Patient had fluids and Zofran EN route. Did receive a dose of phenobarbital for potential alcohol withdrawal. Patient has had some improvement in his speech but still confused. Nursing spoke with poison control who noted patient had some nicotine overdose would be a significant mount 80 mg typically symptoms started 8 mg. They note the patient's symptoms can also be consistent with alcohol use as well. Stroke was included in differential as well but patient other than having some difficulty with speech has not no lateralizing symptoms. Patient had some improvement with phenobarbital, had some brief hypoxia after he received this and was placed on nasal cannula. About an hour and a half after receiving medications CIWA is increasing again at given an additional dose of phenobarbital. Spoke with hospitalist, Dr. Douglas who accepts for inpatient. Dr. Douglas saw patient in the department @ 1812 Critical Care Time Critical Care Time Critical Care Time: Yes Total Critical Care Time: 35 Attestation: The high probability of a clinically significant, sudden or life threatening deterioration of the [systems] system(s) required my full and direct attention, intervention and personal management. The aggregate critical care time was [--] minutes. This time is in addition to time spent performing reported procedures but includes the following: [x] Data Review and interpretation [x] Patient assessment and monitoring of vital signs [x] Documentation [x] Medication orders and management Discharge Plan Departure Patient Disposition: Admitted As Inpatient Clinical Impression: Alcohol intoxication, Alcohol withdrawal delirium, Acidosis, lactic Admit Date/Time: 06/25/25 17:58 Admit Provider: Lexa Douglas
--- NOTE | 2025-06-25 15:11 | EKG_ITS ---
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
--- NOTE | 2025-06-25 15:32 | PC.NURSE ---
At this time I contacted poison control and discussed the possibility of nicotine poisoning. The employee I spoke with stated that if the patient did indeed consume close to 80mg of nicotine then this is a significant amount. He states sometimes overdose symptoms can occur at only 8mg consumed. He reports that symptoms can include altered mental status, seizures, hyperthermia, tachycardia, respiratory distress and failure, etc. He suspects it will take close to 6 hours for the nicotine to be cleared but also reccomends various lab tests and CT's to rule out the possibility of other things that could be differentials diagnoses including stroke, sepsis, seizure, alcohol intoxication,etc. All of this info was relayed to Dr. Urbina, recommended lab tests were added on to labs. Patient is alert in the room answering questions with some difficulty finding words.
[2025-06-25 15:37] LABS: HEMOLYSIS 33 (0-50)
[2025-06-25 15:38] LABS: INR 0.9 (0.9-1.3); Prothrombin Time 10.6 SECONDS (9.4-12.5)
[2025-06-25 15:41] LABS: PTT Partial Thromboplastin Tim 27 SECONDS (25.1-36.5)
[2025-06-25 15:43] LABS: Alanine Aminotransferase 40 IU/L (<50); Albumin 4.9 g/dL (3.5-5.0); Albumin Globulin Ratio 1.4 (1.0-2.8); Alkaline Phosphatase 82 U/L (38-126); Blood Urea Nitrogen 15 mg/dL (9-20); Calcium 8.3 mg/dL (8.4-10.2); Carbon Dioxide 14 mmol/L (22-32); Chloride 102 mmol/L (98-107); Creatine Kinase 210 U/L (55-170); Estimated Glomerular Filt Rate > 60 mL/min (>60); Globulin 3.5 g/dL (1.7-4.1); Glucose 129 mg/dL (70-99); Potassium 4.3 mmol/L (3.4-5.1); Sodium 138 mmol/L (137-145); Total Protein 8.4 g/dL (6.3-8.2)
[2025-06-25 15:46] LABS: Add Manual Diff / Slide Review NO; Hematocrit 44.1 % (41-53); Hemoglobin 15.3 g/dL (13.5-17.5); Lymphocytes Absolute Auto 1200 /uL (1100-4500); Mean Corpuscular HGB Conc 34.6 % (30-36); Mean Corpuscular Hemoglobin 33.6 PG (26-34); Mean Corpuscular Volume 97.0 fL (80-100); Platelet Count 316 X10^3/uL (150-400)
[2025-06-25 15:50] LABS: Lactate (Lactic Acid) 6.1 mmol/L (0.7-2.1)
[2025-06-25 15:50] LABS: Base Excess VBG -5.8 mmol/L (0-4); HCO3 VBG 19 mmol/L (24-28); Oxygen Saturation VBG 89 % (70-75); PCO2 VBG 33.0 mmHg (45-50); PO2 VBG 58 mmHg (35-45); Total CO2 VBG 18 mmol/L (24-29); pH VBG 7.36 (7.33-7.43)
[2025-06-25 15:55] LABS: Acetaminophen < 10 ug/mL (10-30); Salicylate < 1.0 mg/dL (<20); Troponin I 0.013 ng/mL (0.01-0.034)
--- NOTE | 2025-06-25 15:57 | PC.NURSE ---
Symptoms are isolated to speech. Patient responds to questions appropriately with a yes or no and is able to understand and follow commands without evidence of confusion. However when asked to elaborate and use more words patient has difficulty finding and uses inappropriate words at times. Patient is trying to get out of bed and I asked him what he needed and he said a bed. When I told him to get back in the bed he followed commands and said I'm so embarrassed. I asked him if he was trying to say another word instead of bed and he reports yes but cannot find the correct word. I asked him about the bathroom and he denies that he needs to use the restroom, I eventually determined that he was looking for his phone. When completeing the NIHSS scale he was able to read words appropriately but when asked to identify words for the pictures he could not come up with the appropriate words. Dr. Ciara salazar.
[2025-06-25 16:00] LABS: Procalcitonin 0.046 ng/mL (<0.5)
[2025-06-25] MEDS: SODIUM CHLORIDE 0.9% 1,000 ML 1000 ML IV ×2 (16:06→17:38)
[2025-06-25 16:10] LABS: Ethanol (ETOH) 431 mg/dL (<10)
[2025-06-25 16:13] LABS: Ammonia (NH3) < 9 umol/L (9-30)
[2025-06-25 16:15] LABS: Thyroid Stimulating Hormone 0.164 uIU/mL (0.47-4.68)
[2025-06-25 16:29] LABS: Lipase 151 U/L (23-300)
[2025-06-25 17:03] LABS: Reflexed Lactate in 2 Hours Y
[2025-06-25 17:47] LABS: Appearance Urine UA CLEAR; Bilirubin Urine UA NEGATIVE (NEGATIVE); Color Urine UA YELLOW; Glucose Urine UA NEGATIVE (Negative); Ketones Urine UA 3+ (NEGATIVE); Leukocyte Esterase Urine UA NEGATIVE (NEGATIVE); Nitrite Urine UA NEGATIVE (Negative); Occult Blood Urine UA 1+ (Negative); Protein Urine UA 2+ (Negative); Specific Gravity Urine UA 1.025 (1.000-1.035); Urobilinogen Urine UA 0.2 E.U./dL (0.2); pH Urine UA 5.5 (4.5-8.0)
[2025-06-25 17:55] LABS: Culture Indicated Urine Cult Not Indicated
[2025-06-25 17:56] LABS: UR Morphine/Opiate cutoff 300 Negative (Negative); Ur Specific Gravity Normal (Normal); Urine MDMA Negative (Negative); Urine Methamphetamines Negative (Negative); Urine Tetrahydrocannabinol Positive (Negative); Urine Tricyclic Antidepressant Negative (Negative)
[2025-06-25 18:00] LABS: Lactate 2HR (Lactic Acid Rflx) 4.5 mmol/L (0.7-2.1)
[2025-06-25] MEDS: SODIUM CHLORIDE 0.9% 1,000 ML 100 ML IV (19:49)
--- NOTE | 2025-06-25 20:08 | PC.NURSE ---
prachi from [facility] control called and was updated. stated to continue phenobarb orders and monitor for changes in s/sx and call as needed for new updates.
--- NOTE | 2025-06-25 21:16 | PC.NURSE ---
pt tried to get out of bed to close the door and yanked his IV out on accident. Call macedo was within reach prior to him getting out of bed
[2025-06-25 21:57] LABS: Lactate (Lactic Acid) 3.9 mmol/L (0.7-2.1)
[2025-06-25 21:58] LABS: Ethanol (ETOH) 208 mg/dL (<10)
[2025-06-25 23:19] LABS: Reflexed Lactate in 2 Hours Y
[2025-06-26] VITALS (19 sets, daily range): BP systolic 121–194; BP diastolic 73–99; PULSE 91–125; RESP 16–35; TEMP 36.2–37.3; O2SAT 92–98; BMI 28.5
[2025-06-26 02:15] LABS: MRSA (Nasal) PCR NOT DETECTED (Not Detect)
[2025-06-26] MEDS: SODIUM CHLORIDE 0.9% 1,000 ML 100 ML IV (05:35)
[2025-06-26 07:19] LABS: Add Manual Diff / Slide Review NO; Hematocrit 35.0 % (41-53); Hemoglobin 12.3 g/dL (13.5-17.5); Lymphocytes Absolute Auto 800 /uL (1100-4500); Mean Corpuscular HGB Conc 35.2 % (30-36); Mean Corpuscular Hemoglobin 34.4 PG (26-34); Mean Corpuscular Volume 97.8 fL (80-100); Platelet Count 216 X10^3/uL (150-400)
[2025-06-26 07:39] LABS: Lactate 2HR (Lactic Acid Rflx) 1.5 mmol/L (0.7-2.1)
[2025-06-26 07:41] LABS: Alanine Aminotransferase 33 IU/L (<50); Albumin 4.0 g/dL (3.5-5.0); Albumin Globulin Ratio 1.4 (1.0-2.8); Alkaline Phosphatase 65 U/L (38-126); Blood Urea Nitrogen 10 mg/dL (9-20); Calcium 7.7 mg/dL (8.4-10.2); Carbon Dioxide 16 mmol/L (22-32); Chloride 103 mmol/L (98-107); Estimated Glomerular Filt Rate > 60 mL/min (>60); Globulin 2.9 g/dL (1.7-4.1); Glucose 88 mg/dL (70-99); HEMOLYSIS < 15 (0-50); Potassium 4.0 mmol/L (3.4-5.1); Sodium 135 mmol/L (137-145); Total Protein 6.9 g/dL (6.3-8.2)
[2025-06-26 08:12] LABS: Magnesium 1.8 mg/dL (1.6-2.3)
--- NOTE | 2025-06-26 08:19 | PM.HP.IH.1 ---
History of Present Illness History of Present Illness Date Patient Seen: 06/26/25 Time Patient Seen: 08:19 Chief complaint: AMS Narrative: 54-year-old male with a history of depression anxiety and high blood pressure brought into the emergency department because of confusion. Patient's last thing he remembers is being in the ambulance. Does not know really what happened at home. Patient admits to drinking alcohol. He says it he does not drink much usually 1 or 2 alcoholic drinks a night. He said he has recently been trying to quit. But then things got out of control and started drinking more. From my understanding from the record it appears that patient had someone who came in and did a welfare check on him. They were concerned I think it was his neighbor. Nonetheless in discussion with the patient this morning his alert he knows a day in the week and the time. Patient has some obvious tremors he has a clear historian. He knows his primary care doctor. Patient admits to drinking quite some time and having the desire to quit. He says this morning he does feel a little bit shaky. He says he is hungry. He needs to have a bowel movement. And review of hospital labs. He has a normal white blood cell count patient's hemoglobin hematocrit is stable. He received 2 L of normal saline in the emergency department. His electrolytes are normal. Patient has normal kidney function. His lactate was initially quite elevated. But his now it is trending down. Has mild elevation of his AST. CK troponin is negative. Lipase is normal. Procalcitonin is normal. Prolactin was mildly elevated on admission. Chest x-ray was reviewed which is normal CT scan noncontrast of the head was normal as well. Patient's alcohol level on arrival to the emergency room was 400. He was screened for salicylates acetaminophen which were negative. His urine toxicology screen was positive for marijuana. Patient did well overnight. His confusion is improved and altered mental status. His alcohol level is now 208. He is mentating normally. He does have some tremors and signs of [id number] withdrawal. Expresses a desire to quit drinking. Would like help with this. Patient is neurologically intact. [facility] Medical History HTN (hypertension) Anxiety Hernia Diverticulitis Surgical History Hx of arthroscopy of left knee (~04/2022) Hx of colonoscopy (04/16/23) Social History marital status: unmarried,single household members: none lives independently: Yes occupational status: employed Smoking Status: Former smoker alcohol intake: current substance use type: does not use Meds Home Medications and Allergies Home Medications ?Medication ?Instructions ?Recorded ?Confirmed ?Type fluoxetine 20 mg capsule 20 mg PO DAILY 02/21/23 06/26/25 History ibuprofen 200 mg tablet 400 mg PO BID PRN Pain 04/23/23 06/26/25 History trazodone 100 mg tablet 100 mg PO BEDTIME 04/23/23 06/26/25 History atenolol 25 mg PO BID 04/25/23 06/26/25 History nicotine (polacrilex) 4 mg PO PRN PRN Nicotine Cravings 05/01/23 06/26/25 History acetaminophen 325 mg capsule 650 mg (2 x 325 mg) PO QID PRN 05/03/23 06/26/25 Rx (Tylenol) pain #60 caps docusate sodium 100 mg capsule 100 mg PO BID #30 caps 05/03/23 06/26/25 Rx (Colace) Allergies Allergy/AdvReac Type Severity Reaction Status Date / Time No Known Drug Allergies Allergy Verified 06/25/25 15:09 Exam Vital Signs (past 8 hours): - 06/26/25 00:36 06/26/25 01:00 06/26/25 01:20 Temperature Pulse Rate 93 H 92 H Respiratory Rate 18 18 Blood Pressure 160/74 H 160/74 H Pulse Oximetry 96 Oxygen Delivery Method Nasal Cannula Oxygen Flow Rate 2 06/26/25 02:00 06/26/25 02:00 06/26/25 03:00 Temperature 98.3 F Pulse Rate 97 H 93 H 95 H Respiratory Rate 18 Blood Pressure 160/74 H 160/74 H 157/78 H Pulse Oximetry 98 98 96 Oxygen Delivery Method Oxygen Flow Rate 2 2 2 06/26/25 04:00 06/26/25 05:00 06/26/25 05:06 Temperature Pulse Rate 94 H 97 H Respiratory Rate 18 18 Blood Pressure 143/73 H 177/91 H Pulse Oximetry 94 96 Oxygen Delivery Method Nasal Cannula Oxygen Flow Rate 2 2 10/04/25 06:00 06/26/25 06:26 06/26/25 07:00 Temperature 97.2 F L Pulse Rate 98 H 99 H 104 H Respiratory Rate 18 16 31 H Blood Pressure 156/87 H 156/87 H 151/92 H Pulse Oximetry 97 96 Oxygen Delivery Method Oxygen Flow Rate 2 06/26/25 08:00 Temperature 97.2 F L Pulse Rate 106 H Respiratory Rate 35 H Blood Pressure 176/99 H Pulse Oximetry 92 Oxygen Delivery Method Oxygen Flow Rate Oxygen Delivery Method Nasal Cannula Oxygen Flow Rate 2 Narrative Exam Narrative: Gen.: Alert oriented some mild tremors. Provides good history HEENT: Pupils equal round and reactive or mucosa is moist neck is supple. Cardio: [S1-S2 regular rate and rhythm no murmurs appreciated.] Respiratory: [Lungs are clear to auscultation no wheezes or crackles normal respiratory effort.] Abdomen: [Soft nontender no rebound or guarding no liver spleen enlargement no appreciable hernias] Extremities: Full range of motion no focal neurological deficits in fact walking in the room. Objective Labs 06/26/25 06:57 06/26/25 06:57 Labs: Laboratory Results - last 24 hr 06/25/25 06/25/25 06/25/25 06:57 15:15 15:40 WBC 11.0 RBC 4.54 Hgb 15.3 Hct 44.1 MCV 97.0 MCH 33.6 MCHC 34.6 RDW 14.1 Plt Count 316 Neut % (Auto) 83.0 H Lymph % (Auto) 11.0 L [place] % (Auto) 5.6 Eos % (Auto) 0.0 L Baso % (Auto) 0.4 Neut # (Auto) 9100 H Lymph # (Auto) 1200 [place] # (Auto) 600 Eos # (Auto) 0 Baso # (Auto) 0 PT 10.6 INR 0.9 APTT 27 VBG pH VBG pCO2 VBG pO2 VBG HCO3 VBG Total CO2 VBG O2 Saturation VBG Base Excess FiO2 % Sodium 138 Potassium 4.3 Chloride 102 Carbon Dioxide 14 L BUN 15 Creatinine 0.95 Estimated GFR > 60 BUN/Creatinine Ratio 15.8 Glucose 129 H Lactate 1.5 6.1 H* Calcium 8.3 L Magnesium Total Bilirubin 0.6 AST 110 H ALT 40 Alkaline Phosphatase 82 Ammonia < 9 L Total Creatine Kinase 210 H Troponin I 0.013 Total Protein 8.4 H Albumin 4.9 Globulin 3.5 Albumin/Globulin Ratio 1.4 Lipase 151 Procalcitonin 0.046 TSH 0.164 L Prolactin 20.1 H Urine Color Urine Appearance Urine pH Ur Specific [place] Urine Protein Urine Glucose (UA) Urine Ketones Urine Occult Blood Urine Nitrate Urine Bilirubin Urine Urobilinogen Ur Leukocyte Esterase Urine RBC Urine WBC Ur Squamous Epith Cells Urine Bacteria Ur Culture Indicated? Vol Urine Centrifuged Nasal Screen MRSA (PCR) Salicylates < 1.0 U Opiates 300ng/mL cut Ur Oxycodone Screen Urine Methadone Screen Acetaminophen < 10 Ur Barbiturates Screen U Tricyclic Antidepress Ur Phencyclidine Scrn Ur Amphetamines Screen U Methamphetamines Scrn Ur MDMA Scrn (Ecstasy) U Benzodiazepines Scrn Urine Cocaine Screen U Marijuana (THC) Screen Urine Specific [place] Ethyl Alcohol 431 H* Ur Creatinine 06/25/25 06/25/25 06/25/25 15:45 17:10 17:10 WBC RBC Hgb Hct MCV MCH MCHC RDW Plt Count Neut % (Auto) Lymph % (Auto) [place] % (Auto) Eos % (Auto) Baso % (Auto) Neut # (Auto) Lymph # (Auto) [place] # (Auto) Eos # (Auto) Baso # (Auto) PT INR APTT VBG pH 7.36 VBG pCO2 33.0 L VBG pO2 58 H VBG HCO3 19 L VBG Total CO2 18 L VBG O2 Saturation 89 H VBG Base Excess -5.8 L FiO2 % 21.0 % Sodium Potassium Chloride Carbon Dioxide BUN Creatinine Estimated GFR BUN/Creatinine Ratio Glucose Lactate Calcium Magnesium Total Bilirubin AST ALT Alkaline Phosphatase Ammonia Total Creatine Kinase Troponin I Total Protein Albumin Globulin Albumin/Globulin Ratio Lipase Procalcitonin TSH Prolactin Urine Color Yellow Urine Appearance Clear Urine pH 5.5 Normal Ur Specific [place] 1.025 Urine Protein 2+ H Urine Glucose (UA) Negative Urine Ketones 3+ H Urine Occult Blood 1+ H Urine Nitrate Negative Urine Bilirubin Negative Urine Urobilinogen 0.2 Ur Leukocyte Esterase Negative Urine RBC None seen Urine WBC None seen Ur Squamous Epith Cells None seen Urine Bacteria None seen Ur Culture Indicated? Cult not indicated Vol Urine Centrifuged 10ml (spun) Nasal Screen MRSA (PCR) Salicylates U Opiates 300ng/mL cut Negative Ur Oxycodone Screen Negative Urine Methadone Screen Negative Acetaminophen Ur Barbiturates Screen Negative U Tricyclic Antidepress Negative Ur Phencyclidine Scrn Negative Ur Amphetamines Screen Negative U Methamphetamines Scrn Negative Ur MDMA Scrn (Ecstasy) Negative U Benzodiazepines Scrn Negative Urine Cocaine Screen Negative U Marijuana (THC) Screen Positive H Urine Specific [place] Normal Ethyl Alcohol Ur Creatinine Normal 06/25/25 06/25/25 06/26/25 17:40 21:40 00:01 WBC RBC Hgb Hct MCV MCH MCHC RDW Plt Count Neut % (Auto) Lymph % (Auto) [place] % (Auto) Eos % (Auto) Baso % (Auto) Neut # (Auto) Lymph # (Auto) [place] # (Auto) Eos # (Auto) Baso # (Auto) PT INR APTT VBG pH VBG pCO2 VBG pO2 VBG HCO3 VBG Total CO2 VBG O2 Saturation VBG Base Excess FiO2 % Sodium Potassium Chloride Carbon Dioxide BUN Creatinine Estimated GFR BUN/Creatinine Ratio Glucose Lactate 4.5 H* 3.9 H Calcium Magnesium Total Bilirubin AST ALT Alkaline Phosphatase Ammonia Total Creatine Kinase Troponin I Total Protein Albumin Globulin Albumin/Globulin Ratio Lipase Procalcitonin TSH Prolactin Urine Color Urine Appearance Urine pH Ur Specific [place] Urine Protein Urine Glucose (UA) Urine Ketones Urine Occult Blood Urine Nitrate Urine Bilirubin Urine Urobilinogen Ur Leukocyte Esterase Urine RBC Urine WBC Ur Squamous Epith Cells Urine Bacteria Ur Culture Indicated? Vol Urine Centrifuged Nasal Screen MRSA (PCR) Not detected Salicylates U Opiates 300ng/mL cut Ur Oxycodone Screen Urine Methadone Screen Acetaminophen Ur Barbiturates Screen U Tricyclic Antidepress Ur Phencyclidine Scrn Ur Amphetamines Screen U Methamphetamines Scrn Ur MDMA Scrn (Ecstasy) U Benzodiazepines Scrn Urine Cocaine Screen U Marijuana (THC) Screen Urine Specific [place] Ethyl Alcohol 208 H Ur Creatinine 06/26/25 06:57 WBC 9.2 RBC 3.58 L Hgb 12.3 L Hct 35.0 L MCV 97.8 MCH 34.4 H MCHC 35.2 RDW 13.4 Plt Count 216 Neut % (Auto) 80.5 H Lymph % (Auto) 8.4 L [place] % (Auto) 10.0 Eos % (Auto) 0.2 L Baso % (Auto) 0.9 Neut # (Auto) 7400 H Lymph # (Auto) 800 L [place] # (Auto) 900 Eos # (Auto) 0 Baso # (Auto) 100 PT INR APTT VBG pH VBG pCO2 VBG pO2 VBG HCO3 VBG Total CO2 VBG O2 Saturation VBG Base Excess FiO2 % Sodium 135 L Potassium 4.0 Chloride 103 Carbon Dioxide 16 L BUN 10 Creatinine 0.73 Estimated GFR > 60 BUN/Creatinine Ratio 13.7 Glucose 88 Lactate Calcium 7.7 L Magnesium 1.8 Total Bilirubin 1.0 AST 72 H ALT 33 Alkaline Phosphatase 65 Ammonia Total Creatine Kinase Troponin I Total Protein 6.9 Albumin 4.0 Globulin 2.9 Albumin/Globulin Ratio 1.4 Lipase Procalcitonin TSH Prolactin Urine Color Urine Appearance Urine pH Ur Specific [place] Urine Protein Urine Glucose (UA) Urine Ketones Urine Occult Blood Urine Nitrate Urine Bilirubin Urine Urobilinogen Ur Leukocyte Esterase Urine RBC Urine WBC Ur Squamous Epith Cells Urine Bacteria Ur Culture Indicated? Vol Urine Centrifuged Nasal Screen MRSA (PCR) Salicylates U Opiates 300ng/mL cut Ur Oxycodone Screen Urine Methadone Screen Acetaminophen Ur Barbiturates Screen U Tricyclic Antidepress Ur Phencyclidine Scrn Ur Amphetamines Screen U Methamphetamines Scrn Ur MDMA Scrn (Ecstasy) U Benzodiazepines Scrn Urine Cocaine Screen U Marijuana (THC) Screen Urine Specific [place] Ethyl Alcohol Ur Creatinine Assessment & Plan Assessment and plan (1) Alcohol withdrawal delirium: Status: Acute (2) Acidosis, lactic: Status: Acute (3) Alcohol intoxication: Qualifiers: Complication of substance-induced condition: with delirium Qualified Code(s): F10.921 - Alcohol use, unspecified with intoxication delirium Status: Acute Plan Alcohol withdrawal delirium tremors Acute alcohol intoxication Lactic acidosis due to alcohol Acute metabolic encephalopathy due to alcohol withdrawal Depression and anxiety THC use Hypertension Plan. Patient will be admitted to the hospital because of acute alcohol intoxication with signs and symptoms of withdrawal. Patient has been trying to cut down. Patient had significant altered mental status and concern for being able to take care of himself. Patient was admitted to the our ICU. Overnight his confusion is improved. Patient is still going through moderate symptoms of withdrawal at this time he is quite tachycardic and hypertensive. He is a good historian. He has been loaded with phenobarbital. We will now start scheduled Librium. He will have additional Ativan and Haldol as needed. If his withdrawal symptoms worsen which I suspect they may over the next 24-48 hours we can certainly use Precedex if needed. He will have seizure precautions as his prolactin was elevated. Unsure if he had a seizure at home. As he does not have anybody who lives with him. Patient will be started back on his antihypertensive medication atenolol. He will have Lovenox for DVT prophylaxis. We will started diet as he says he is hungry. We will stop his IV fluids at this point. But we will reinitiate them if he starts to go through significant withdrawal and requiring Precedex. Time-Based Coding :: [TOTAL MINUTES] spent with patient and on the chart (including review of chart, obtaining history, exam, reviewing outside data, placing orders, documenting exam and treatment plan, and counseling patient) on [DATE]. Quality VTE Deep Vein Thrombosis/Pulmonary Embolism Present on Admission: No [facility] PROFEE Lean Process Deployment Consultant Document charge(s): Yes Charge Codes Initial inpatient/observation care: [id number]
[2025-06-26] MEDS: FOLIC ACID 1 MG TABLET PO (08:25)
[2025-06-26] MEDS: MULTIVITAMIN 1 TABLET 1 TAB PO (08:25)
[2025-06-26] MEDS: THIAMINE 100 MG TABLET PO (08:25)
[2025-06-26] MEDS: ENOXAPARIN 40 MG/0.4 ML SYRINGE SUBCUT (08:25)
[2025-06-26] MEDS: NICOTINE 21 MG PATCH TOP (09:02)
--- NOTE | 2025-06-26 14:45 | PC.NURSE ---
Patient choosing to leave against medical advice. Patient is A/Ox4 and decisional. Educated on benefits of staying for treatment and risks of leaving without medical treatment. Dr. Pacheco contacted and made aware of situation, instructed to have patient follow up with PCP, Dr. Breen, and patient was very agreeable. Provided patient with information on alcohol withdrawal, sobriety information, and supportive pamphlets. AMA form signed and placed in patient chart. Patient brought down to friend's vehicle via wheelchair.
--- NOTE | 2025-06-26 15:51 | CM.DANOTE ---
DCP assessment note- Brief pt is a 54yo M admitted for ETOH detox/withdrawal symptom management. per chart review, pt drinks approx 1ltr liquor daily for unknown amount of time. current CIWA 15. per RN, pt leaving AMA. DIVISION SALES MANAGER printed off packet of ETOH resources for pt to use at his discretion. changing when this DIVISION SALES MANAGER attempted to talk to him. RN agreed to give packet of ETOH information. no further CM needs at this time. P: pt left AMA. no CM needs at this time. will continue to follow in case any additional needs should arise MARYBETH Villalobos Discharge Planning/Care Management CM Discharge Assessment Start: 06/25/25 18:15 Freq: Status: Discharge Protocol: Document 06/26/25 15:45 SL (Rec: 06/26/25 15:51 SL [id number]) Discharge Planning Assessment Assigned Discharge MARYBETH Gross Noc Analyst Provider [facility] Advance Directives? No Advance Directives No on File History Provided By Patient,Medical Record Prior Living House Arrangements Household Members none Type of Drives own vehicle transporation used prior to admit Independent with ADL Yes 's Is patient alert and Yes oriented? Discharge Plan Left AMA Transportation Friend or family Arrangement Referrals Initiated None needed Review Status In Process Please Provide Date 06/26/25 Initial DC Assessment Was Performed Next Review Type Continued Stay Review
[2025-06-29 15:36] LABS: Osmolality, Serum 362 mOsmol/kg (275-295)
== END 2025-06-26 15:21 | disposition left against medical advice (07) | DRG 894 ==
LOC: ED 15:20 → AC 17:59 → ICU 22:38
PROVIDERS: Admitting Provider Family Medicine; Emergency Provider Emergency Medicine; PCP Family Medicine; Referring Provider Emergency Medicine; Visit Provider Family Medicine
DX: F10.231 Alcohol dependence with withdrawal delirium (principal); G93.41 Metabolic encephalopathy; E87.20 Acidosis, unspecified; F10.221 Alcohol dependence with intoxication delirium; F32.A Depression, unspecified; F41.9 Anxiety disorder, unspecified; F12.90 Cannabis use, unspecified, uncomplicated; I10 Essential (primary) hypertension; Y90.8 Blood alcohol level of 240 mg/100 ml or more; Z53.29 Procedure and treatment not carried out because of patient's decision for other reasons; Z87.891 Personal history of nicotine dependence
CPT/HCPCS: 36415; 70450; 71045; 80053; 80305; 80320; 80329; 81001; 82140; 82550; 82805; 83605; 83690; 83735; 83930; 84145; 84146; 84443; 84484; 85025; 85610; 85730; 87040; 87086; 87797; 93005; 96361; 96374; 96375; 99285; 99291; G0480; J1650; J2060; J2560; J7030

== ENCOUNTER 2025-07-03 14:17 | Emergency (ER) | payer OTHER, SELFPAY ==
[2025-06-26 00:10] VITALS: BMI 28.5
[2025-07-03] VITALS (22 sets, daily range): BP systolic 129–153; BP diastolic 72–82; PULSE 104–133; RESP 15–23; TEMP 36.1; O2SAT 90–97; BMI 27.9
--- NOTE | 2025-07-03 14:29 | EKG_ITS ---
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
--- NOTE | 2025-07-03 14:39 | DI.CT.S_ITS ---
PROCEDURE: CT HEAD/BRAIN WO CON INDICATIONS: fall w/HS + LOC TECHNIQUE: Noncontrast 4.5 mm thick angled axial sections acquired from the foramen magnum to the vertex, with coronal and sagittal reformats. For radiation dose reduction, the following was used: automated exposure control, adjustment of mA and/or kV according to patient size. COMPARISON: [facility], CT, CT HEAD/BRAIN WO CON, 06/25/2025, 15:20. FINDINGS: Image quality: Diagnostic. CSF spaces: Basal cisterns are patent. No extra-axial fluid collections. Ventricles are normal in size and shape. Brain: No midline shift. No intracranial mass effect or hemorrhage. Mcallister- white matter interface is normal. Skull and face: Calvarium and visualized facial bones are intact, without suspicious lesions. Sinuses: Visualized sinuses and mastoids are clear. IMPRESSION: No acute intracranial pathology. Dictated by: Nam Reyes M.D. on 07/03/2025 at 14:03 Approved by: Nam Reyes M.D. on 07/03/2025 at 14:04
--- NOTE | 2025-07-03 14:43 | ED.GENADULT ---
HPI - General Adult General Chief complaint: Toxicology Problem Stated complaint: ETOH and vomiting Time Seen by Provider: 07/03/25 14:32 Source: patient and EMS Mode of arrival: EMS Limitations: altered mental status History of Present Illness HPI narrative: Patient is a 54-year-old male with history of alcohol use disorder complicated by alcohol withdrawal, presenting with reported alcohol intoxication and fall. Patient states that he had been drinking on the night prior when he sustained a fall, he states that he hit his head and lost consciousness. He does not know how long he was unconscious for however did call 911 independently for assistance on the day of presentation. Per EMS report, patient was found to have dried emesis around the oropharynx however was not noted to be surrounded by evidence of emesis on the scene. Related Data Home Medications ?Medication ?Instructions ?Recorded ?Confirmed fluoxetine 20 mg capsule 20 mg PO DAILY 02/21/23 06/26/25 ibuprofen 200 mg tablet 400 mg PO BID PRN Pain 04/23/23 06/26/25 trazodone 100 mg tablet 100 mg PO BEDTIME 04/23/23 06/26/25 atenolol 25 mg PO BID 04/25/23 06/26/25 nicotine (polacrilex) 4 mg PO PRN PRN Nicotine Cravings 05/01/23 06/26/25 Previous Rx's ?Medication ?Instructions ?Recorded acetaminophen 325 mg capsule 650 mg (2 x 325 mg) PO QID PRN 05/03/23 (Tylenol) pain #60 caps docusate sodium 100 mg capsule 100 mg PO BID #30 caps 05/03/23 (Colace) Allergies Allergy/AdvReac Type Severity Reaction Status Date / Time No Known Drug Allergies Allergy Verified 07/03/25 14:30 Patient History Medical History HTN (hypertension) Anxiety Hernia Diverticulitis Surgical History Hx of arthroscopy of left knee (~04/2022) Hx of colonoscopy (04/16/23) Social History marital status: unmarried,single household members: none lives independently: Yes occupational status: employed Smoking Status: Current every day smoker alcohol intake: current substance use type: does not use Smoking Status: Current every day smoker tobacco type: smokeless tobacco alcohol intake frequency: 0-2 drinks per day Exam Narrative Exam Narrative: Notable for abrasion over the left lateral scalp and cheek, abrasion over the left superior shoulder, ecchymosis to the left ear without active bleeding from the ear canal Initial Vital Signs Initial Vital Signs: Vital Signs Pulse Rate 113 H 07/03/25 14:22 Pulse Oximetry 97 07/03/25 14:22 Const General: cooperative HENMT Head: abrasion and hematoma Eyes Pupils: PERRL EOM: EOM intact bilaterally Resp Effort & Inspection: normal respiratory effort Cardio Rate: tachycardic Rhythm: abnormal rhythm GI Palpation: soft and No tender Skin General: ecchymosis Hair: male pattern alopecia Neuro General: patient alert Speech: other (Slurred) Motor: tremor Extrem General: full ROM Psych Appearance: disheveled Speech and Movement: delayed speech Course Orders Ordered: ED Orders 07/03/25 14:20 Complete Blood Count AUTO DIFF Stat Comprehensive Metabolic Panel Stat ETOH [Ethanol (ETOH)] Stat Magnesium Stat Prothrombin Time INR Stat 07/03/25 14:39 CT head/brain wo con Stat Lorazepam (Lorazepam 2 Mg/Ml Inj) 0 mg IV CIWAPRN PRN; Protocol PRN Reason: Alcohol Withdrawal Last Admin: 07/03/25 15:05 Dose: 1 mg Documented By: JOSEFA Lorazepam (Lorazepam 1 Mg Tablet) 0 mg PO CIWAPRN PRN; Protocol PRN Reason: Alcohol Withdrawal Multivitamins (Multivitamin 1 Tablet) 1 tab PO DAILY NAJMA Thiamine HCl (Thiamine 100 Mg Tablet) 100 mg PO DAILY NAJMA Stop: 07/07/25 09:01 Discontinued Medications Sodium Chloride (Normal Saline 0.9%) 1,000 mls @ 1,000 mls/hr IV BOLUS ONE Stop: 07/03/25 15:38 Last Infusion: 07/03/25 15:59 Dose: Infused Documented By: Admin: 07/03/25 15:07 Dose: 1,000 mls/hr Documented By: JOSEFA Nicotine (Nicotine 21 Mg Patch) 21 mg TOP NOW ONE Stop: 07/03/25 19:09 Last Admin: 07/03/25 19:55 Dose: 21 mg Documented By: CANDELARIA Vital Signs Vital signs: Vital Signs - 8 hr 07/03/25 14:22 07/03/25 14:24 07/03/25 14:24 Temperature Pulse Rate 113 H 113 H Respiratory Rate Blood Pressure 129/74 Pulse Oximetry 97 96 Oxygen Delivery Method 07/03/25 14:30 07/03/25 14:30 07/03/25 14:30 Temperature 96.9 F L Pulse Rate 112 H 113 H Respiratory Rate 15 21 Blood Pressure 129/74 137/79 Pulse Oximetry 96 94 Oxygen Delivery Method Room Air 07/03/25 15:00 07/03/25 15:30 07/03/25 16:00 Temperature Pulse Rate 112 H 104 H 117 H Respiratory Rate 18 18 16 Blood Pressure Pulse Oximetry 93 95 94 Oxygen Delivery Method 07/03/25 16:30 07/03/25 17:00 07/03/25 17:30 Temperature Pulse Rate 112 H 117 H 112 H Respiratory Rate 16 16 18 Blood Pressure Pulse Oximetry 93 90 L 92 Oxygen Delivery Method 07/03/25 18:00 07/03/25 18:20 07/03/25 18:20 Temperature Pulse Rate 122 H 129 H Respiratory Rate Blood Pressure 141/82 H Pulse Oximetry 92 94 Oxygen Delivery Method Medical Decision Making Differential Diagnosis Differential Diagnosis: Alcohol intoxication, traumatic head injury, alcohol withdrawal, seizure Medical Records Medical records reviewed: Yes I reviewed the patient's medical records. Lab Data Lab results reviewed: Yes I reviewed the patient's lab results. 07/03/25 14:20 07/03/25 14:20 Labs: Lab Results 07/03/25 Range/Units 14:20 WBC 8.9 (4.5-11.0) X10^3/uL RBC 4.25 L (4.5-5.9) X10^6/uL Hgb 14.5 (13.5-17.5) g/dL Hct 41.5 (41-53) % MCV 97.6 (80-100) fL MCH 34.2 H (26-34) PG MCHC 35.0 (30-36) % RDW 13.5 (11.6-14.8) % Plt Count 340 (150-400) X10^3/uL Neut % (Auto) 73.8 (50-75) % Lymph % (Auto) 16.1 L (25-40) % [place] % (Auto) 9.1 (3-14) % Eos % (Auto) 0.1 L (2-4) % Baso % (Auto) 0.9 (0-2) % Neut # (Auto) 6600 (5849-4139) /uL Lymph # (Auto) 1400 (9042-8495) /uL [place] # (Auto) 800 (0-900) /uL Eos # (Auto) 0 (0-450) /uL Baso # (Auto) 100 (0-100) /uL PT 10.6 (9.4-12.5) SECONDS INR 0.9 (0.9-1.3) Sodium 144 (137-145) mmol/L Potassium 4.0 (3.4-5.1) mmol/L Chloride 101 (98-107) mmol/L Carbon Dioxide 22 (22-32) mmol/L BUN 14 (9-20) mg/dL Creatinine 0.78 (0.66-1.25) mg/dL Estimated GFR > 60 (>60) mL/min BUN/Creatinine Ratio 17.9 (6-22) Glucose 101 H (70-99) mg/dL Calcium 9.1 (8.4-10.2) mg/dL Magnesium 2.2 (1.6-2.3) mg/dL Total Bilirubin 0.5 (0.2-1.3) mg/dL AST 55 (17-59) IU/L ALT 30 (<50) IU/L Alkaline Phosphatase 100 (38-126) U/L Total Protein 8.9 H (6.3-8.2) g/dL Albumin 5.1 H (3.5-5.0) g/dL Globulin 3.8 (1.7-4.1) g/dL Albumin/Globulin Ratio 1.3 (1.0-2.8) Ethyl Alcohol 374 H (<10) mg/dL Imaging Data CT scan - head: Attestation: I personally reviewed and interpreted this imaging study as follows: My Impression: CT head without evidence of acute intracranial pathology on independent review, no obvious hemorrhage or fracture MDM Narrative Medical decision making narrative: History and exam as above. Patient presenting with fall in the setting of intoxication. Differential include seizure, alcohol withdrawal, anxiety, polysubstance use, hepatic encephalopathy, traumatic brain injury, intracranial injury. Plan for CT, imaging, and likely disposition to detox/rehab for further stabilization and management. Discharge Plan Departure Clinical Impression: Hematoma of left auricular region Alcohol intoxication Qualifiers: Complication of substance-induced condition: with delirium Qualified Code(s): F10.921 - Alcohol use, unspecified with intoxication delirium Fall Qualifiers: Encounter type: initial encounter Qualified Code(s): W19.XXXA - Unspecified fall, initial encounter Closed head injury Qualifiers: Encounter type: initial encounter Qualified Code(s): S09.90XA - Unspecified injury of head, initial encounter Instructions: DI for Alcohol Use Disorder, DI for Closed Head Injury Activity Restrictions/Additional Instructions: You were seen in the emergency department for your alcohol use and fall. Evaluation here included examination, lab work, and imaging to evaluate for injury. Your overall reassured and do not see any evidence of an acute injury that would require admission to the hospital or intervention at this time. We understand that you were not interested in detox or rehabilitation at this time. If you should decide that you are interested in pursuing admission for these services or require additional resources for support, please do not hesitate to reach out or return to the emergency department for further assistance and evaluation. Please follow-up with your primary care provider for re-evaluation and medication adjustment as needed. If you develop worsening headache, vision changes, new weakness, gait instability, severe nausea or vomiting, or other symptoms that are concerning to you, please return to the emergency department for further evaluation. Prescriptions: No Action atenolol 25 mg PO BID trazodone 100 mg Tablet 100 mg PO BEDTIME ibuprofen 200 mg Tablet 400 mg PO BID PRN (Reason: Pain) Patient Comments: as needed nicotine (polacrilex) 4 mg 4 mg PO PRN PRN (Reason: Nicotine Cravings) Patient Comments: patients own med docusate sodium [Colace] 100 mg capsule 100 mg PO BID Qty: 30 0RF acetaminophen [Tylenol] 325 mg capsule 650 mg PO QID PRN (Reason: pain) Qty: 60 0RF Patient Comments: prn fluoxetine 20 mg capsule 20 mg PO DAILY Referrals: Efe Breen MD [Primary Care Provider, Family Practice] Stand Alone Forms: Patient Portal/API
[2025-07-03 14:47] LABS: Add Manual Diff / Slide Review NO; Hematocrit 41.5 % (41-53); Hemoglobin 14.5 g/dL (13.5-17.5); Lymphocytes Absolute Auto 1400 /uL (1100-4500); Mean Corpuscular HGB Conc 35.0 % (30-36); Mean Corpuscular Hemoglobin 34.2 PG (26-34); Mean Corpuscular Volume 97.6 fL (80-100); Platelet Count 340 X10^3/uL (150-400)
[2025-07-03 14:49] LABS: INR 0.9 (0.9-1.3); Prothrombin Time 10.6 SECONDS (9.4-12.5)
[2025-07-03 14:54] LABS: Alanine Aminotransferase 30 IU/L (<50); Albumin 5.1 g/dL (3.5-5.0); Albumin Globulin Ratio 1.3 (1.0-2.8); Alkaline Phosphatase 100 U/L (38-126); Blood Urea Nitrogen 14 mg/dL (9-20); Calcium 9.1 mg/dL (8.4-10.2); Carbon Dioxide 22 mmol/L (22-32); Chloride 101 mmol/L (98-107); Estimated Glomerular Filt Rate > 60 mL/min (>60); Globulin 3.8 g/dL (1.7-4.1); Glucose 101 mg/dL (70-99); HEMOLYSIS 41 (0-50); Magnesium 2.2 mg/dL (1.6-2.3); Potassium 4.0 mmol/L (3.4-5.1); Sodium 144 mmol/L (137-145); Total Protein 8.9 g/dL (6.3-8.2)
[2025-07-03] MEDS: SODIUM CHLORIDE 0.9% 1,000 ML 1000 ML IV (15:07)
[2025-07-03 18:46] LABS: Ethanol (ETOH) 374 mg/dL (<10)
[2025-07-03] MEDS: NICOTINE 21 MG PATCH TOP (19:55)
[2025-07-04] VITALS (15 sets, daily range): BP systolic 149–190; BP diastolic 75–92; PULSE 113–150; RESP 16–22; O2SAT 87–96
--- NOTE | 2025-07-04 03:01 | PC.NURSE ---
pt state he is having a bad anxiety attack, Dr Schwab informed and medication ordered
[2025-07-04 04:15] LABS: Ethanol (ETOH) < 10 mg/dL (<10)
[2025-07-04] MEDS: ACETAMINOPHEN 325 MG TABLET 650 MG PO (04:25)
--- NOTE | 2025-07-04 06:18 | PC.NURSE ---
pt wanting to go home, does not want to go to detox, wants to call a taxi and be dc, Dr Schwab informed
== END 2025-07-04 06:30 | disposition home or self-care (01) ==
PROVIDERS: Student in an Organized Health Care Education/Training Program; Emergency Provider Family Medicine; PCP Family Medicine
DX: F10.921 Alcohol use, unspecified with intoxication delirium (principal); S00.432A Contusion of left ear, initial encounter; S09.90XA Unspecified injury of head, initial encounter; W19.XXXA Unspecified fall, initial encounter
CPT/HCPCS: 70450; 80053; 80320; 83735; 85025; 85610; 93005; 93010; 96361; 96374; 96376; 99284; J2060; J7030

== ENCOUNTER 2025-07-06 12:05 | Inpatient (IN) | payer OTHER, SELFPAY ==
[2025-06-26 00:10] VITALS: BMI 28.5
[2025-07-06] VITALS (31 sets, daily range): BP systolic 81–133; BP diastolic 45–73; PULSE 82–107; RESP 11–26; TEMP 36.7; O2SAT 91–100; BMI 30.2
[2025-07-06 12:48] LABS: Add Manual Diff / Slide Review NO; Hematocrit 38.0 % (41-53); Hemoglobin 13.1 g/dL (13.5-17.5); Lymphocytes Absolute Auto 2700 /uL (1100-4500); Mean Corpuscular HGB Conc 34.5 % (30-36); Mean Corpuscular Hemoglobin 33.7 PG (26-34); Mean Corpuscular Volume 97.6 fL (80-100); Platelet Count 321 X10^3/uL (150-400)
[2025-07-06 13:05] LABS: Lactate (Lactic Acid) 3.4 mmol/L (0.7-2.1)
[2025-07-06 13:06] LABS: Alanine Aminotransferase 40 IU/L (<50); Albumin 4.7 g/dL (3.5-5.0); Albumin Globulin Ratio 1.3 (1.0-2.8); Alkaline Phosphatase 77 U/L (38-126); Blood Urea Nitrogen 11 mg/dL (9-20); Calcium 8.8 mg/dL (8.4-10.2); Carbon Dioxide 28 mmol/L (22-32); Chloride 101 mmol/L (98-107); Estimated Glomerular Filt Rate > 60 mL/min (>60); Globulin 3.6 g/dL (1.7-4.1); Glucose 121 mg/dL (70-99); Lipase 191 U/L (23-300); Potassium 3.7 mmol/L (3.4-5.1); Sodium 143 mmol/L (137-145); Total Protein 8.3 g/dL (6.3-8.2)
[2025-07-06 13:31] LABS: HEMOLYSIS 72 (0-50)
[2025-07-06 13:32] LABS: Ethanol (ETOH) 417 mg/dL (<10)
[2025-07-06] MEDS: SODIUM CHLORIDE 0.9% 1,000 ML 1000 ML IV (13:47)
--- NOTE | 2025-07-06 13:55 | PC.NURSE ---
Pt hypotensive, physician aware. NS bolus running at this time. No new orders.
--- NOTE | 2025-07-06 13:58 | ED.ALCOHOL ---
HPI - Alcohol <Jaqui Goldberg DO - Last Filed: 07/07/25 07:56> General Chief Complaint: Toxicology Problem Stated Complaint: ETOH anxiety Time Seen by Provider: 07/06/25 12:21 Source: EMS Mode of arrival: EMS History of Present Illness HPI narrative: Patient is a 54-year-old male history of depression anxiety alcoholism with alcohol withdrawal presenting to day with alcohol intoxication and anxiety. He has been seen in the hospital twice this month already for alcoholism. He reports he drinks rum daily. He was actually admitted June 25 through the , and then again July 03. On the there was talk of him going to rehab but he continued to change his mind ultimately alcohol level was less than 10 and he was discharged home. He reports that today he actually would like detox he is tearful. He says he screwed up his life. CIWA upon arrival was 12 per nursing. He has a contusion on his forehead on the left side, but reports no fall from today this is from prior. Related Data Home Medications ?Medication ?Instructions ?Recorded ?Confirmed fluoxetine 20 mg capsule 20 mg PO DAILY 02/21/23 07/06/25 ibuprofen 200 mg tablet 400 mg PO BID PRN Pain 04/23/23 07/06/25 trazodone 100 mg tablet 100 mg PO BEDTIME 04/23/23 07/06/25 atenolol 25 mg PO BID 04/25/23 07/06/25 nicotine (polacrilex) 4 mg PO PRN PRN Nicotine Cravings 05/01/23 07/06/25 acamprosate 333 mg tablet,delayed 666 mg PO 3XD 07/06/25 07/06/25 release clonidine HCl 0.1 mg tablet 0.2 mg PO TID 07/06/25 07/06/25 hydroxyzine HCl 25 mg tablet 25 mg PO Q6H 07/06/25 07/06/25 Previous Rx's ?Medication ?Instructions ?Recorded acetaminophen 325 mg capsule 650 mg (2 x 325 mg) PO QID PRN 05/03/23 (Tylenol) pain #60 caps Allergies Allergy/AdvReac Type Severity Reaction Status Date / Time No Known Drug Allergies Allergy Verified 07/06/25 21:03 Patient History <DO Attila Gilliland Last Filed: 07/07/25 07:56> Medical History HTN (hypertension) Anxiety Hernia Diverticulitis Surgical History Hx of arthroscopy of left knee (~04/2022) Hx of colonoscopy (04/16/23) Social History marital status: unmarried,single household members: none lives independently: Yes occupational status: employed alcohol intake: current substance use type: does not use tobacco type: smokeless tobacco alcohol intake frequency: 0-2 drinks per day Alcohol type: hard liquor Exam <Jaqui Goldberg DO - Last Filed: 07/07/25 07:56> Initial Vital Signs Initial Vital Signs: Vital Signs Pulse Rate 86 07/06/25 12:30 Respiratory Rate 18 07/06/25 12:30 Blood Pressure 109/58 L 07/06/25 12:30 Pulse Oximetry 92 07/06/25 12:30 GENERAL: Alert tearful HEENT: Head contusion left forehead with some mild periorbital contusion as well no significant periorbital swelling,EOMI, pupils reactive, face symmetric, slurring of speech CARDIOVASCULAR: Regular rate and rhythm without murmurs, rubs or gallops. RESPIRATORY: Breath sounds equal bilaterally, no wheezes rales or rhonchi. ABDOMEN: Soft, nontender. Normoactive bowel sounds all 4 quadrants. No guarding or rebound. EXTREMITIES: Normal range of motion, no clubbing or edema. Neurovascularly intact NEUROLOGICAL: Alert oriented moving all extremities SKIN: Warm, dry, no laceration, no petechiae, no rashes or lesions. <Richy Casiano DO - Last Filed: 07/06/25 20:11> Initial Vital Signs Initial Vital Signs: Vital Signs Pulse Rate 86 07/06/25 12:30 Respiratory Rate 18 07/06/25 12:30 Blood Pressure 109/58 L 07/06/25 12:30 Pulse Oximetry 92 07/06/25 12:30 Course <Jaqui Goldberg DO - Last Filed: 07/07/25 07:56> Orders Ordered: Acetaminophen (Acetaminophen 325 Mg Tablet) 650 mg PO Q6H PRN PRN Reason: Fever/Mild Pain (1-3) Hydrocodone Bitart/Acetaminophen (Hydrocodone/Acet 5/325 Tablet) 1 tab PO Q4H PRN PRN Reason: Pain, Moderate (4-6) Hydrocodone Bitart/Acetaminophen (Hydrocodone/Acet 5/325 Tablet) 2 tab PO Q4H PRN PRN Reason: Pain, Severe (7-10) Docusate Sodium (Docusate 100 Mg Capsule) 100 mg PO BID [facility] Last Admin: 07/06/25 22:53 Dose: 100 mg Documented By: LARISSA Folic Acid (Folic Acid 1 Mg Tablet) 1 mg PO DAILY [facility] Sodium Chloride (Normal Saline 0.9%) 1,000 mls @ 100 mls/hr IV CONT [facility] Last Admin: 07/06/25 22:37 Dose: 100 mls/hr Documented By: LARISSA Ciprofloxacin (Cipro) 400 mg in 200 mls @ 200 mls/hr IV Q12H [facility] Metronidazole (Flagyl) 500 mg in 100 mls @ 100 mls/hr IV Q8H [facility] Last Admin: 07/07/25 04:17 Dose: 100 mls/hr Documented By: IRASEMA Ibuprofen (Ibuprofen 600 Mg Tablet) 600 mg PO Q6H [facility] Last Admin: 07/07/25 06:00 Dose: Not Given Documented By: Admin: 07/07/25 02:24 Dose: 600 mg Documented By: IRASEMA Lorazepam (Lorazepam 2 Mg/Ml Inj) 0 mg IV CIWAPRN PRN; Protocol PRN Reason: Alcohol Withdrawal Last Admin: 07/07/25 06:47 Dose: 1 mg Documented By: Admin: 07/07/25 02:21 Dose: 1 mg Documented By: IRASEMA Lorazepam (Lorazepam 1 Mg Tablet) 0 mg PO CIWAPRN PRN; Protocol PRN Reason: Alcohol Withdrawal Multivitamins (Multivitamin 1 Tablet) 1 tab PO DAILY [facility] Naloxone HCl (Naloxone 0.4 Mg/Ml Vial) 0.2 mg IV Q2MIN PRN PRN Reason: Opiate Reversal Ondansetron HCl (Ondansetron 4 Mg/2 Ml Inj) 4 mg IV Q8HR PRN PRN Reason: Nausea And Vomiting Pantoprazole Sodium (Pantoprazole Dr 20 Mg Tablet) 20 mg PO 0600 [facility] Thiamine HCl (Thiamine 100 Mg Tablet) 100 mg PO DAILY [facility] Stop: 07/10/25 09:01 Trazodone HCl (Trazodone 50 Mg Tablet) 100 mg PO BEDTIME [facility] Last Admin: 07/06/25 22:53 Dose: 100 mg Documented By: LARISSA Discontinued Medications Sodium Chloride (Normal Saline 0.9%) 1,000 mls @ 1,000 mls/hr IV BOLUS ONE Stop: 07/06/25 14:12 Last Infusion: 07/06/25 15:45 Dose: Infused Documented By: Admin: 07/06/25 13:47 Dose: 1,000 mls/hr Documented By: LYNETTE Ciprofloxacin (Cipro) 400 mg in 200 mls @ 200 mls/hr IV NOW ONE Stop: 07/06/25 21:02 Last Infusion: 07/06/25 22:59 Dose: Infused Documented By: Admin: 07/06/25 21:24 Dose: 200 mls/hr Documented By: LARISSA Metronidazole (Flagyl) 500 mg in 100 mls @ 100 mls/hr IV NOW ONE Stop: 07/06/25 21:02 Last Infusion: 07/06/25 21:24 Dose: Infused Documented By: Admin: 07/06/25 20:24 Dose: 100 mls/hr Documented By: LARISSA Lactated Ringer's (Lactated Ringers) 500 mls @ 1,000 mls/hr IV BOLUS ONE Stop: 07/06/25 20:33 Last Infusion: 07/06/25 21:24 Dose: Infused Documented By: Admin: 07/06/25 20:23 Dose: 1,000 mls/hr Documented By: LARISSA Lorazepam (Lorazepam 2 Mg/Ml Inj) 2 mg IV NOW ONE Stop: 07/06/25 14:35 Last Admin: 07/06/25 14:37 Dose: 2 mg Documented By: LYNETTE(2) Lorazepam (Lorazepam 2 Mg/Ml Inj) 1 mg IV NOW ONE Stop: 07/06/25 21:47 Last Admin: 07/06/25 21:56 Dose: 1 mg Documented By: CANDELARIA Phenobarbital (Phenobarbital 65 Mg/Ml Vial) 130 mg IV NOW ONE Stop: 07/06/25 12:40 Last Admin: 07/06/25 12:49 Dose: 130 mg Documented By: ES Phenobarbital (Phenobarbital 65 Mg/Ml Vial) 130 mg IV NOW ONE Stop: 07/06/25 19:01 Last Admin: 07/06/25 19:07 Dose: 130 mg Documented By: MLM Vital Signs Vital signs: Vital Signs - 8 hr 07/06/25 12:30 07/06/25 12:30 07/06/25 12:44 Temperature 98.1 F Pulse Rate 86 82 Respiratory Rate 18 22 Blood Pressure 109/58 L 124/71 Pulse Oximetry 92 96 Oxygen Delivery Method Room Air Oxygen Flow Rate 07/06/25 13:00 07/06/25 13:00 07/06/25 13:30 Temperature Pulse Rate 84 Respiratory Rate 17 Blood Pressure 102/55 L 81/45 L Pulse Oximetry 100 Oxygen Delivery Method Nasal Cannula Oxygen Flow Rate 2 07/06/25 13:30 07/06/25 13:31 07/06/25 13:31 Temperature Pulse Rate 83 88 Respiratory Rate 18 19 Blood Pressure 92/50 L Pulse Oximetry 93 95 Oxygen Delivery Method Oxygen Flow Rate 07/06/25 13:32 07/06/25 13:32 07/06/25 14:00 Temperature Pulse Rate 88 91 H Respiratory Rate 19 11 L Blood Pressure 91/54 L Pulse Oximetry 98 98 Oxygen Delivery Method Oxygen Flow Rate 07/06/25 14:00 07/06/25 14:18 07/06/25 14:18 Temperature Pulse Rate 86 Respiratory Rate 23 Blood Pressure 113/58 L 114/60 Pulse Oximetry 96 Oxygen Delivery Method Oxygen Flow Rate 07/06/25 14:30 07/06/25 15:00 07/06/25 15:30 Temperature Pulse Rate 90 88 88 Respiratory Rate 20 19 19 Blood Pressure Pulse Oximetry 97 94 93 Oxygen Delivery Method Oxygen Flow Rate 07/06/25 15:47 07/06/25 15:47 07/06/25 16:00 Temperature Pulse Rate 92 H 87 Respiratory Rate 18 21 Blood Pressure 95/53 L Pulse Oximetry 95 95 Oxygen Delivery Method Oxygen Flow Rate 07/06/25 16:00 07/06/25 16:30 07/06/25 17:00 Temperature Pulse Rate 88 90 Respiratory Rate 21 24 Blood Pressure 87/50 L Pulse Oximetry 96 96 Oxygen Delivery Method Oxygen Flow Rate 07/06/25 17:00 07/06/25 17:30 07/06/25 18:06 Temperature Pulse Rate 93 H Respiratory Rate 21 Blood Pressure 96/56 L 133/73 Pulse Oximetry 96 Oxygen Delivery Method Oxygen Flow Rate 07/06/25 18:30 07/06/25 19:00 07/06/25 19:00 Temperature Pulse Rate 92 H 100 H Respiratory Rate 22 20 Blood Pressure 123/69 Pulse Oximetry 97 95 Oxygen Delivery Method Room Air Oxygen Flow Rate 07/06/25 19:30 Temperature Pulse Rate 92 H Respiratory Rate 22 Blood Pressure Pulse Oximetry 95 Oxygen Delivery Method Room Air Oxygen Flow Rate <Richy Casiano, DO - Last Filed: 07/06/25 20:11> Orders Ordered: Acetaminophen (Acetaminophen 325 Mg Tablet) 650 mg PO Q6H PRN PRN Reason: Fever/Mild Pain (1-3) Hydrocodone Bitart/Acetaminophen (Hydrocodone/Acet 5/325 Tablet) 1 tab PO Q4H PRN PRN Reason: Pain, Moderate (4-6) Hydrocodone Bitart/Acetaminophen (Hydrocodone/Acet 5/325 Tablet) 2 tab PO Q4H PRN PRN Reason: Pain, Severe (7-10) Docusate Sodium (Docusate 100 Mg Capsule) 100 mg PO BID [facility] Last Admin: 07/06/25 22:53 Dose: 100 mg Documented By: LARISSA Folic Acid (Folic Acid 1 Mg Tablet) 1 mg PO DAILY [facility] Sodium Chloride (Normal Saline 0.9%) 1,000 mls @ 100 mls/hr IV CONT [facility] Last Admin: 07/06/25 22:37 Dose: 100 mls/hr Documented By: LARISSA Ciprofloxacin (Cipro) 400 mg in 200 mls @ 200 mls/hr IV Q12H [facility] Metronidazole (Flagyl) 500 mg in 100 mls @ 100 mls/hr IV Q8H [facility] Last Admin: 07/07/25 04:17 Dose: 100 mls/hr Documented By: IRASEMA Ibuprofen (Ibuprofen 600 Mg Tablet) 600 mg PO Q6H [facility] Last Admin: 07/07/25 06:00 Dose: Not Given Documented By: Admin: 07/07/25 02:24 Dose: 600 mg Documented By: IRASEMA Lorazepam (Lorazepam 2 Mg/Ml Inj) 0 mg IV CIWAPRN PRN; Protocol PRN Reason: Alcohol Withdrawal Last Admin: 07/07/25 06:47 Dose: 1 mg Documented By: Admin: 07/07/25 02:21 Dose: 1 mg Documented By: IRASEMA Lorazepam (Lorazepam 1 Mg Tablet) 0 mg PO CIWAPRN PRN; Protocol PRN Reason: Alcohol Withdrawal Multivitamins (Multivitamin 1 Tablet) 1 tab PO DAILY [facility] Naloxone HCl (Naloxone 0.4 Mg/Ml Vial) 0.2 mg IV Q2MIN PRN PRN Reason: Opiate Reversal Ondansetron HCl (Ondansetron 4 Mg/2 Ml Inj) 4 mg IV Q8HR PRN PRN Reason: Nausea And Vomiting Pantoprazole Sodium (Pantoprazole Dr 20 Mg Tablet) 20 mg PO 0600 [facility] Thiamine HCl (Thiamine 100 Mg Tablet) 100 mg PO DAILY [facility] Stop: 07/10/25 09:01 Trazodone HCl (Trazodone 50 Mg Tablet) 100 mg PO BEDTIME [facility] Last Admin: 07/06/25 22:53 Dose: 100 mg Documented By: RLC Discontinued Medications Sodium Chloride (Normal Saline 0.9%) 1,000 mls @ 1,000 mls/hr IV BOLUS ONE Stop: 07/06/25 14:12 Last Infusion: 07/06/25 15:45 Dose: Infused Documented By: Admin: 07/06/25 13:47 Dose: 1,000 mls/hr Documented By: LYNETTE Ciprofloxacin (Cipro) 400 mg in 200 mls @ 200 mls/hr IV NOW ONE Stop: 07/06/25 21:02 Last Infusion: 07/06/25 22:59 Dose: Infused Documented By: Admin: 07/06/25 21:24 Dose: 200 mls/hr Documented By: LARISSA Metronidazole (Flagyl) 500 mg in 100 mls @ 100 mls/hr IV NOW ONE Stop: 07/06/25 21:02 Last Infusion: 07/06/25 21:24 Dose: Infused Documented By: Admin: 07/06/25 20:24 Dose: 100 mls/hr Documented By: LARISSA Lactated Ringer's (Lactated Ringers) 500 mls @ 1,000 mls/hr IV BOLUS ONE Stop: 07/06/25 20:33 Last Infusion: 07/06/25 21:24 Dose: Infused Documented By: Admin: 07/06/25 20:23 Dose: 1,000 mls/hr Documented By: LARISSA Lorazepam (Lorazepam 2 Mg/Ml Inj) 2 mg IV NOW ONE Stop: 07/06/25 14:35 Last Admin: 07/06/25 14:37 Dose: 2 mg Documented By: LYNETTE(2) Lorazepam (Lorazepam 2 Mg/Ml Inj) 1 mg IV NOW ONE Stop: 07/06/25 21:47 Last Admin: 07/06/25 21:56 Dose: 1 mg Documented By: CANDELARIA Phenobarbital (Phenobarbital 65 Mg/Ml Vial) 130 mg IV NOW ONE Stop: 07/06/25 12:40 Last Admin: 07/06/25 12:49 Dose: 130 mg Documented By: ES Phenobarbital (Phenobarbital 65 Mg/Ml Vial) 130 mg IV NOW ONE Stop: 07/06/25 19:01 Last Admin: 07/06/25 19:07 Dose: 130 mg Documented By: MLM Vital Signs Vital signs: Vital Signs - 8 hr 07/06/25 12:30 07/06/25 12:30 07/06/25 12:44 Temperature 98.1 F Pulse Rate 86 82 Respiratory Rate 18 22 Blood Pressure 109/58 L 124/71 Pulse Oximetry 92 96 Oxygen Delivery Method Room Air Oxygen Flow Rate 07/06/25 13:00 07/06/25 13:00 07/06/25 13:30 Temperature Pulse Rate 84 Respiratory Rate 17 Blood Pressure 102/55 L 81/45 L Pulse Oximetry 100 Oxygen Delivery Method Nasal Cannula Oxygen Flow Rate 2 07/06/25 13:30 07/06/25 13:31 07/06/25 13:31 Temperature Pulse Rate 83 88 Respiratory Rate 18 19 Blood Pressure 92/50 L Pulse Oximetry 93 95 Oxygen Delivery Method Oxygen Flow Rate 07/06/25 13:32 07/06/25 13:32 07/06/25 14:00 Temperature Pulse Rate 88 91 H Respiratory Rate 19 11 L Blood Pressure 91/54 L Pulse Oximetry 98 98 Oxygen Delivery Method Oxygen Flow Rate 07/06/25 14:00 07/06/25 14:18 07/06/25 14:18 Temperature Pulse Rate 86 Respiratory Rate 23 Blood Pressure 113/58 L 114/60 Pulse Oximetry 96 Oxygen Delivery Method Oxygen Flow Rate 07/06/25 14:30 07/06/25 15:00 07/06/25 15:30 Temperature Pulse Rate 90 88 88 Respiratory Rate 20 19 19 Blood Pressure Pulse Oximetry 97 94 93 Oxygen Delivery Method Oxygen Flow Rate 07/06/25 15:47 07/06/25 15:47 07/06/25 16:00 Temperature Pulse Rate 92 H 87 Respiratory Rate 18 21 Blood Pressure 95/53 L Pulse Oximetry 95 95 Oxygen Delivery Method Oxygen Flow Rate 07/06/25 16:00 07/06/25 16:30 07/06/25 17:00 Temperature Pulse Rate 88 90 Respiratory Rate 21 24 Blood Pressure 87/50 L Pulse Oximetry 96 96 Oxygen Delivery Method Oxygen Flow Rate 07/06/25 17:00 07/06/25 17:30 07/06/25 18:06 Temperature Pulse Rate 93 H Respiratory Rate 21 Blood Pressure 96/56 L 133/73 Pulse Oximetry 96 Oxygen Delivery Method Oxygen Flow Rate 07/06/25 18:30 07/06/25 19:00 07/06/25 19:00 Temperature Pulse Rate 92 H 100 H Respiratory Rate 22 20 Blood Pressure 123/69 Pulse Oximetry 97 95 Oxygen Delivery Method Room Air Oxygen Flow Rate 07/06/25 19:30 Temperature Pulse Rate 92 H Respiratory Rate 22 Blood Pressure Pulse Oximetry 95 Oxygen Delivery Method Room Air Oxygen Flow Rate MDM - Alcohol <Jaqui Goldberg, - Last Filed: 07/07/25 07:56> Lab Data 07/06/25 11:50 07/06/25 11:50 Labs: Lab Results 07/06/25 07/06/25 07/06/25 Range/Units 11:50 13:53 18:00 WBC 5.9 (4.5-11.0) X10^3/uL RBC 3.89 L (4.5-5.9) X10^6/uL Hgb 13.1 L (13.5-17.5) g/dL Hct 38.0 L (41-53) % MCV 97.6 (80-100) fL MCH 33.7 (26-34) PG MCHC 34.5 (30-36) % RDW 13.7 (11.6-14.8) % Plt Count 321 (150-400) X10^3/uL Neut % (Auto) 37.1 L (50-75) % Lymph % (Auto) 46.9 H (25-40) % Quay % (Auto) 12.7 (3-14) % Eos % (Auto) 2.5 (2-4) % Baso % (Auto) 0.8 (0-2) % Neut # (Auto) 2200 (7145-9255) /uL Lymph # (Auto) 2700 (4614-0475) /uL Quay # (Auto) 700 (0-900) /uL Eos # (Auto) 100 (0-450) /uL Baso # (Auto) 0 (0-100) /uL Sodium 143 (137-145) mmol/L Potassium 3.7 (3.4-5.1) mmol/L Chloride 101 (98-107) mmol/L Carbon Dioxide 28 (22-32) mmol/L BUN 11 (9-20) mg/dL Creatinine 0.80 (0.66-1.25) mg/dL Estimated GFR > 60 (>60) mL/min BUN/Creatinine Ratio 13.8 (6-22) Glucose 121 H (70-99) mg/dL Lactate 3.4 H 2.8 H (0.7-2.1) mmol/L Calcium 8.8 (8.4-10.2) mg/dL Total Bilirubin 0.6 (0.2-1.3) mg/dL AST 81 H (17-59) IU/L ALT 40 (<50) IU/L Alkaline Phosphatase 77 (38-126) U/L Total Protein 8.3 H (6.3-8.2) g/dL Albumin 4.7 (3.5-5.0) g/dL Globulin 3.6 (1.7-4.1) g/dL Albumin/Globulin Ratio 1.3 (1.0-2.8) Lipase 191 (23-300) U/L Urine Color Yellow Urine Appearance Clear Urine pH 6.0 (4.5-8.0) Ur Specific [place] 1.020 (1.000-1.035) Urine Protein Negative (Negative) Urine Glucose (UA) Negative (Negative) g/dL Urine Ketones Negative (NEGATIVE) Urine Occult Blood Negative (Negative) Urine Nitrate Negative (Negative) Urine Bilirubin Negative (NEGATIVE) Urine Urobilinogen 0.2 (0.2) E.U./dL Ur Leukocyte Esterase Negative (NEGATIVE) Urine RBC None seen (0-5/HPF) Urine WBC 0-1/hpf (0-5/HPF) Ur Squamous Epith Cells 0-1 /hpf (0-5/HPF) Urine Bacteria None seen (None) Ur Culture Indicated? Cult not indicated Vol Urine Centrifuged 10ml (spun) U Opiates 300ng/mL cut Negative (Negative) Ur Oxycodone Screen Negative (Negative) Urine Methadone Screen Negative (Negative) Ur Barbiturates Screen Positive H (Negative) U Tricyclic Antidepress Negative (Negative) Ur Phencyclidine Scrn Negative (Negative) Ur Amphetamines Screen Negative (Negative) U Methamphetamines Scrn Negative (Negative) Ur MDMA Scrn (Ecstasy) Negative (Negative) U Benzodiazepines Scrn Positive H (Negative) Urine Cocaine Screen Negative (Negative) U Marijuana (THC) Screen Positive H (Negative) Urine Specific [place] (Normal) Ethyl Alcohol 417 H* (<10) mg/dL Ur Creatinine (Normal) 07/06/25 Range/Units 18:00 WBC (4.5-11.0) X10^3/uL RBC (4.5-5.9) X10^6/uL Hgb (13.5-17.5) g/dL Hct (41-53) % MCV (80-100) fL MCH (26-34) PG MCHC (30-36) % RDW (11.6-14.8) % Plt Count (150-400) X10^3/uL Neut % (Auto) (50-75) % Lymph % (Auto) (25-40) % Quay % (Auto) (3-14) % Eos % (Auto) (2-4) % Baso % (Auto) (0-2) % Neut # (Auto) (3994-4984) /uL Lymph # (Auto) (7079-5348) /uL Quay # (Auto) (0-900) /uL Eos # (Auto) (0-450) /uL Baso # (Auto) (0-100) /uL Sodium (137-145) mmol/L Potassium (3.4-5.1) mmol/L Chloride (98-107) mmol/L Carbon Dioxide (22-32) mmol/L BUN (9-20) mg/dL Creatinine (0.66-1.25) mg/dL Estimated GFR (>60) mL/min BUN/Creatinine Ratio (6-22) Glucose (70-99) mg/dL Lactate (0.7-2.1) mmol/L Calcium (8.4-10.2) mg/dL Total Bilirubin (0.2-1.3) mg/dL AST (17-59) IU/L ALT (<50) IU/L Alkaline Phosphatase (38-126) U/L Total Protein (6.3-8.2) g/dL Albumin (3.5-5.0) g/dL Globulin (1.7-4.1) g/dL Albumin/Globulin Ratio (1.0-2.8) Lipase (23-300) U/L Urine Color Urine Appearance Urine pH Normal (4.5-8.0) Ur Specific [place] (1.000-1.035) Urine Protein (Negative) Urine Glucose (UA) (Negative) g/dL Urine Ketones (NEGATIVE) Urine Occult Blood (Negative) Urine Nitrate (Negative) Urine Bilirubin (NEGATIVE) Urine Urobilinogen (0.2) E.U./dL Ur Leukocyte Esterase (NEGATIVE) Urine RBC (0-5/HPF) Urine WBC (0-5/HPF) Ur Squamous Epith Cells (0-5/HPF) Urine Bacteria (None) Ur Culture Indicated? Vol Urine Centrifuged U Opiates 300ng/mL cut (Negative) Ur Oxycodone Screen (Negative) Urine Methadone Screen (Negative) Ur Barbiturates Screen (Negative) U Tricyclic Antidepress (Negative) Ur Phencyclidine Scrn (Negative) Ur Amphetamines Screen (Negative) U Methamphetamines Scrn (Negative) Ur MDMA Scrn (Ecstasy) (Negative) U Benzodiazepines Scrn (Negative) Urine Cocaine Screen (Negative) U Marijuana (THC) Screen (Negative) Urine Specific [place] Normal (Normal) Ethyl Alcohol (<10) mg/dL Ur Creatinine Normal (Normal) Imaging Data CT scan - head: Radiologist's Impressoin: PROCEDURE: CT HEAD/BRAIN WO CON INDICATIONS: etoh fall TECHNIQUE: Noncontrast 4.5 mm thick angled axial sections acquired from the foramen magnum to the vertex, with coronal and sagittal reformats. For radiation dose reduction, the following was used: automated exposure control, adjustment of mA and/or kV according to patient size. COMPARISON: [facility], CT, CT HEAD/BRAIN WO CON, 07/03/2025, 14:55. [facility], CT, CT HEAD/BRAIN WO CON, 06/25/2025, 15:20. FINDINGS: Image quality: Diagnostic. CSF spaces: Basal cisterns are patent. No extra-axial fluid collections. Ventricles are normal in size and shape. Brain: No midline shift. No intracranial mass effect or hemorrhage. Mcallister-white matter interface is normal. Skull and face: Calvarium and visualized facial bones are intact, without suspicious lesions. Sinuses: Visualized sinuses and mastoids are clear. IMPRESSION: No acute intracranial pathology. Approved by: Aston Hdz M.D. on 07/06/2025 at 14:30 MDM Narrative Medical decision making narrative: Patient 54-year-old male presenting today with alcohol intoxication. He has been to the ED 3 times this month frequently changes his mind about detox. Alcohol level today is 417 it was previously 374. I suspect that patient may require more medication than available at detox. Other blood work does not show a significant electrolyte abnormality creatinine 0.8 glucose 121, no anion gap Lactate 3.4 previously it was 3.9 CBC no leukocytosis or anemia Ct HEad no intracranial hemorrhage Patient has received phenobarbital 130 mg and Ativan 2 mg. May require inpatient admission for detox if he chooses to stay. Patient signed out to Dr. Casiano All lab work, vital signs, nurse triage note, medication list, previous ER visits, and all imaging studies reviewed. CT abdomen pelvis showed acute L1 superior endplate compression fracture. Acute uncomplicated diverticulitis. Separate noninflamed wall thickening in the jejunum which is concerning for malignancy. Case discussed with Dr. Leach will be the consult on the case for potential scope. Patient given phenobarbital here and also fluids and Cipro Flagyl. Case discussed with Dr. Becker who has graciously accepted the patient for inpatient admission <Richy Casiano, DO - Last Filed: 07/06/25 20:11> Lab Data Labs: Lab Results 07/06/25 07/06/25 07/06/25 Range/Units 11:50 13:53 18:00 WBC 5.9 (4.5-11.0) X10^3/uL RBC 3.89 L (4.5-5.9) X10^6/uL Hgb 13.1 L (13.5-17.5) g/dL Hct 38.0 L (41-53) % MCV 97.6 (80-100) fL MCH 33.7 (26-34) PG MCHC 34.5 (30-36) % RDW 13.7 (11.6-14.8) % Plt Count 321 (150-400) X10^3/uL Neut % (Auto) 37.1 L (50-75) % Lymph % (Auto) 46.9 H (25-40) % Quay % (Auto) 12.7 (3-14) % Eos % (Auto) 2.5 (2-4) % Baso % (Auto) 0.8 (0-2) % Neut # (Auto) 2200 (8977-1637) /uL Lymph # (Auto) 2700 (3371-5907) /uL Quay # (Auto) 700 (0-900) /uL Eos # (Auto) 100 (0-450) /uL Baso # (Auto) 0 (0-100) /uL Sodium 143 (137-145) mmol/L Potassium 3.7 (3.4-5.1) mmol/L Chloride 101 (98-107) mmol/L Carbon Dioxide 28 (22-32) mmol/L BUN 11 (9-20) mg/dL Creatinine 0.80 (0.66-1.25) mg/dL Estimated GFR > 60 (>60) mL/min BUN/Creatinine Ratio 13.8 (6-22) Glucose 121 H (70-99) mg/dL Lactate 3.4 H 2.8 H (0.7-2.1) mmol/L Calcium 8.8 (8.4-10.2) mg/dL Total Bilirubin 0.6 (0.2-1.3) mg/dL AST 81 H (17-59) IU/L ALT 40 (<50) IU/L Alkaline Phosphatase 77 (38-126) U/L Total Protein 8.3 H (6.3-8.2) g/dL Albumin 4.7 (3.5-5.0) g/dL Globulin 3.6 (1.7-4.1) g/dL Albumin/Globulin Ratio 1.3 (1.0-2.8) Lipase 191 (23-300) U/L Urine Color Yellow Urine Appearance Clear Urine pH 6.0 (4.5-8.0) Ur Specific [place] 1.020 (1.000-1.035) Urine Protein Negative (Negative) Urine Glucose (UA) Negative (Negative) g/dL Urine Ketones Negative (NEGATIVE) Urine Occult Blood Negative (Negative) Urine Nitrate Negative (Negative) Urine Bilirubin Negative (NEGATIVE) Urine Urobilinogen 0.2 (0.2) E.U./dL Ur Leukocyte Esterase Negative (NEGATIVE) Urine RBC None seen (0-5/HPF) Urine WBC 0-1/hpf (0-5/HPF) Ur Squamous Epith Cells 0-1 /hpf (0-5/HPF) Urine Bacteria None seen (None) Ur Culture Indicated? Cult not indicated Vol Urine Centrifuged 10ml (spun) U Opiates 300ng/mL cut Negative (Negative) Ur Oxycodone Screen Negative (Negative) Urine Methadone Screen Negative (Negative) Ur Barbiturates Screen Positive H (Negative) U Tricyclic Antidepress Negative (Negative) Ur Phencyclidine Scrn Negative (Negative) Ur Amphetamines Screen Negative (Negative) U Methamphetamines Scrn Negative (Negative) Ur MDMA Scrn (Ecstasy) Negative (Negative) U Benzodiazepines Scrn Positive H (Negative) Urine Cocaine Screen Negative (Negative) U Marijuana (THC) Screen Positive H (Negative) Urine Specific [place] (Normal) Ethyl Alcohol 417 H* (<10) mg/dL Ur Creatinine (Normal) 07/06/25 Range/Units 18:00 WBC (4.5-11.0) X10^3/uL RBC (4.5-5.9) X10^6/uL Hgb (13.5-17.5) g/dL Hct (41-53) % MCV (80-100) fL MCH (26-34) PG MCHC (30-36) % RDW (11.6-14.8) % Plt Count (150-400) X10^3/uL Neut % (Auto) (50-75) % Lymph % (Auto) (25-40) % [place] % (Auto) (3-14) % Eos % (Auto) (2-4) % Baso % (Auto) (0-2) % Neut # (Auto) (0031-9784) /uL Lymph # (Auto) (5699-8492) /uL [place]ay # (Auto) (0-900) /uL Eos # (Auto) (0-450) /uL Baso # (Auto) (0-100) /uL Sodium (137-145) mmol/L Potassium (3.4-5.1) mmol/L Chloride (98-107) mmol/L Carbon Dioxide (22-32) mmol/L BUN (9-20) mg/dL Creatinine (0.66-1.25) mg/dL Estimated GFR (>60) mL/min BUN/Creatinine Ratio (6-22) Glucose (70-99) mg/dL Lactate (0.7-2.1) mmol/L Calcium (8.4-10.2) mg/dL Total Bilirubin (0.2-1.3) mg/dL AST (17-59) IU/L ALT (<50) IU/L Alkaline Phosphatase (38-126) U/L Total Protein (6.3-8.2) g/dL Albumin (3.5-5.0) g/dL Globulin (1.7-4.1) g/dL Albumin/Globulin Ratio (1.0-2.8) Lipase (23-300) U/L Urine Color Urine Appearance Urine pH Normal (4.5-8.0) Ur Specific [place] (1.000-1.035) Urine Protein (Negative) Urine Glucose (UA) (Negative) g/dL Urine Ketones (NEGATIVE) Urine Occult Blood (Negative) Urine Nitrate (Negative) Urine Bilirubin (NEGATIVE) Urine Urobilinogen (0.2) E.U./dL Ur Leukocyte Esterase (NEGATIVE) Urine RBC (0-5/HPF) Urine WBC (0-5/HPF) Ur Squamous Epith Cells (0-5/HPF) Urine Bacteria (None) Ur Culture Indicated? Vol Urine Centrifuged U Opiates 300ng/mL cut (Negative) Ur Oxycodone Screen (Negative) Urine Methadone Screen (Negative) Ur Barbiturates Screen (Negative) U Tricyclic Antidepress (Negative) Ur Phencyclidine Scrn (Negative) Ur Amphetamines Screen (Negative) U Methamphetamines Scrn (Negative) Ur MDMA Scrn (Ecstasy) (Negative) U Benzodiazepines Scrn (Negative) Urine Cocaine Screen (Negative) U Marijuana (THC) Screen (Negative) Urine Specific [place] Normal (Normal) Ethyl Alcohol (<10) mg/dL Ur Creatinine Normal (Normal) Imaging Data CT scan - abdomen/pelvis: Radiologist's Impressoin: [address] [address] [address] Scan Report Signed Patient: Lucinda Castillo MR#: [id number] : 1970 Acct:[id number] Age/Sex: 54 / M Date of Service: 07/06/25 Loc: ED Accession Number: [id number] Procedure: CT abdomen pelvis w con Ordering Provider: Richy Casiano D.O. PROCEDURE: CT ABDOMEN PELVIS W CON INDICATIONS: Abdominal pain and bruising TECHNIQUE: After the administration of intravenous contrast, axial sections acquired from the lung bases to the pubic symphysis. Coronal and sagittal reformats were performed. For radiation dose reduction, the following was used: automated exposure control, adjustment of mA and/or kV according to patient size. COMPARISON: [facility], CT, CT ABDOMEN PELVIS W CON, 02/21/2023, 10:47. [facility], CR, XR ANKLE RT MIN 3V, 04/19/2025, 16:51. FINDINGS: Image quality: Diagnostic. Lower Chest: No significant findings. ABDOMEN: Liver: No solid mass. Gallbladder: No radiopaque gallstones or wall thickening. Biliary ducts: No biliary dilation. Pancreas: No ductal dilation. Spleen: Size is within normal limits. Adrenal Glands: No adrenal nodules. Kidneys and Ureters: No hydronephrosis. No solid mass. No complex renal cystic lesion which requires follow up. Stomach and Bowel: Short segment of wall thickening in the jejunum. Prior sigmoid resection with direct anastomosis. Diverticulosis. Mild fat stranding along the distal descending colon. No abnormally dilated loops of bowel. Appendix is normal. Peritoneum: No abnormal intraperitoneal fluid. No free air. Ventral Wall: No significant ventral hernia. Abdominal Nodes: No retroperitoneal or mesenteric adenopathy by size criteria. Vessels: Aorta and inferior vena cava are normal in size. PELVIS: Pelvic Organs: Unremarkable. Bladder: No bladder wall thickening, accounting for underdistention. Pelvic Nodes: No enlarged lymph nodes. Miscellaneous: No inguinal hernias are seen. Subcutaneous edema consistent with contusion along the right hip. Chronic acetabular ossicle. Bones: No aggressive osseous abnormality. Superior endplate compression fracture at L1 which appears acute with 90% residual vertebral body height. IMPRESSION: Acute L1 superior endplate compression fracture. Acute uncomplicated diverticulitis. Separate noninflamed wall thickening in the jejunum which is concerning for malignancy. Concern for malignancy and frature discussed with Dr Richy Casiano by myself by telephone at 7:52PM PST 07/06/2025 [facility] Narrative Medical decision making narrative: Patient 54-year-old male presenting today with alcohol intoxication. He has been to the ED 3 times this month already changes his mind about detox. Alcohol level today is 417 it was previously 374. I suspect that patient may require more medication than available at detox. Other blood work does not show a significant electrolyte abnormality creatinine 0.8 glucose 121, no anion gap Lactate 3.4 previously it was 3.9 CBC no leukocytosis or anemia Ct HEad no intracranial hemorrhage Patient has received phenobarbital 130 mg and Ativan 2 mg. May require inpatient admission for detox if he chooses to stay. Patient signed out to Dr. Casiano All lab work, vital signs, nurse triage note, medication list, previous ER visits, and all imaging studies reviewed. CT abdomen pelvis showed acute L1 superior endplate compression fracture. Acute uncomplicated diverticulitis. Separate noninflamed wall thickening in the jejunum which is concerning for malignancy. Case discussed with Dr. Leach will be the consult on the case for potential scope. Patient given phenobarbital here and also fluids and Cipro Flagyl. Case discussed with Dr. Becker who has graciously accepted the patient for inpatient admission Discharge Plan Departure Patient Disposition: Admitted As Inpatient Clinical Impression: Diverticulitis, Compression fracture, Disorder of jejunum Alcohol withdrawal Qualifiers: Complication of substance-induced condition: uncomplicated Qualified Code(s): F10.930 - Alcohol use, unspecified with withdrawal, uncomplicated Admit Date/Time: 07/06/25 20:08 Admit Provider: Trent Becker
[2025-07-06 14:21] LABS: Reflexed Lactate in 2 Hours Y
[2025-07-06 14:31] LABS: Lactate 2HR (Lactic Acid Rflx) 2.8 mmol/L (0.7-2.1)
[2025-07-06 18:08] LABS: Appearance Urine UA CLEAR; Bilirubin Urine UA NEGATIVE (NEGATIVE); Color Urine UA YELLOW; Glucose Urine UA NEGATIVE (Negative); Ketones Urine UA NEGATIVE (NEGATIVE); Leukocyte Esterase Urine UA NEGATIVE (NEGATIVE); Nitrite Urine UA NEGATIVE (Negative); Occult Blood Urine UA NEGATIVE (Negative); Protein Urine UA NEGATIVE (Negative); Specific Gravity Urine UA 1.020 (1.000-1.035); Urobilinogen Urine UA 0.2 E.U./dL (0.2); pH Urine UA 6.0 (4.5-8.0)
[2025-07-06 18:14] LABS: Ur Creatinine Normal (Normal); Ur Specific Gravity Normal (Normal); Urine MDMA Negative (Negative); Urine Methamphetamines Negative (Negative); Urine THC Positive (Negative); Urine pH Normal (Normal)
[2025-07-06 18:15] LABS: Urine Tricyclic Antidepressant Negative (Negative)
[2025-07-06 18:16] LABS: Culture Indicated Urine Cult Not Indicated
--- NOTE | 2025-07-06 18:40 | PC.NURSE ---
Pt assisted to WC to bathroom, pt very unsteady, cooperative. pt needs 2 person assist to ambulate and 1 person assist for transfers. Pt used call light appropriately when finished.
--- NOTE | 2025-07-06 19:07 | DI.CT.S_ITS ---
PROCEDURE: CT ABDOMEN PELVIS W CON INDICATIONS: Abdominal pain and bruising TECHNIQUE: After the administration of intravenous contrast, axial sections acquired from the lung bases to the pubic symphysis. Coronal and sagittal reformats were performed. For radiation dose reduction, the following was used: automated exposure control, adjustment of mA and/or kV according to patient size. COMPARISON: [facility], CT, CT ABDOMEN PELVIS W CON, 02/21/2023, 10:47. [facility], CR, XR ANKLE RT MIN 3V, 04/19/2025, 16:51. FINDINGS: Image quality: Diagnostic. Lower Chest: No significant findings. ABDOMEN: Liver: No solid mass. Gallbladder: No radiopaque gallstones or wall thickening. Biliary ducts: No biliary dilation. Pancreas: No ductal dilation. Spleen: Size is within normal limits. Adrenal Glands: No adrenal nodules. Kidneys and Ureters: No hydronephrosis. No solid mass. No complex renal cystic lesion which requires follow up. Stomach and Bowel: Short segment of wall thickening in the jejunum. Prior sigmoid resection with direct anastomosis. Diverticulosis. Mild fat stranding along the distal descending colon. No abnormally dilated loops of bowel. Appendix is normal. Peritoneum: No abnormal intraperitoneal fluid. No free air. Ventral Wall: No significant ventral hernia. Abdominal Nodes: No retroperitoneal or mesenteric adenopathy by size criteria. Vessels: Aorta and inferior vena cava are normal in size. PELVIS: Pelvic Organs: Unremarkable. Bladder: No bladder wall thickening, accounting for underdistention. Pelvic Nodes: No enlarged lymph nodes. Miscellaneous: No inguinal hernias are seen. Subcutaneous edema consistent with contusion along the right hip. Chronic acetabular ossicle. Bones: No aggressive osseous abnormality. Superior endplate compression fracture at L1 which appears acute with 90% residual vertebral body height. IMPRESSION: Acute L1 superior endplate compression fracture. Acute uncomplicated diverticulitis. Separate noninflamed wall thickening in the jejunum which is concerning for malignancy. Concern for malignancy and frature discussed with Dr Richy Ware by myself by telephone at 7:52PM PST 07/06/2025 Dictated by: Antwan Mcdaniel M.D. on 07/06/2025 at 19:41 Approved by: Antwan Mcdaniel M.D. on 07/06/2025 at 19:55
[2025-07-06] MEDS: LACTATED RINGERS 500 ML 1000 ML IV (20:23)
[2025-07-06] MEDS: metroNIDAZOLE 500 MG/100 ML PIGGYBACK 100 MG IV (20:24)
[2025-07-06] MEDS: CIPROFLOXACIN 400 MG/200 ML PIGGYBACK 200 MG IV (21:24)
--- NOTE | 2025-07-06 21:47 | PC.NURSE ---
This RN gets verbal order from ED doc Chaz for MARIE iniguez orders for admission are being verified by pharmacy and are causing delay in care while patient is withdrawing
[2025-07-06] MEDS: SODIUM CHLORIDE 0.9% 1,000 ML 100 ML IV (22:37)
[2025-07-06] MEDS: DOCUSATE 100 MG CAPSULE PO (22:53)
[2025-07-07] VITALS (59 sets, daily range): BP systolic 109–208; BP diastolic 60–111; PULSE 59–108; RESP 16–32; TEMP 36.4–37.2; O2SAT 87–100
[2025-07-07] MEDS: IBUPROFEN 600 MG TABLET PO (02:24)
--- NOTE | 2025-07-07 03:00 | PC.NURSE ---
Pt getting agitated, wanting to leave. Informed pt I couldn't let him leave without a ride, he wanted a taxi and one not available at this time. Pt agreed to take ativan and calmed down after he received his dose.
[2025-07-07] MEDS: metroNIDAZOLE 500 MG/100 ML PIGGYBACK 100 MG IV ×3 (04:17→21:12)
--- NOTE | 2025-07-07 05:32 | PM.CN.IH.1 ---
History of Present Illness Consult details Date Patient Seen: 07/07/25 Time Patient Seen: 05:32 Chief complaint: ETOH anxiety Reason for consult: Jejunal mass Requesting provider: Jaqui Goldberg Narrative: 54yo M patient presented to ED for EtOH withdrawl, anxiety. CT abd ordered for abd pain demonstrated thickening in the proximal jejunum concerning for malignancy. Also showed acute uncomplicated diverticulitis and L1 fracture. Patient states he is leaving the ED at 6AM. Meds Home Medications and Allergies Home Medications ?Medication ?Instructions ?Recorded ?Confirmed ?Type fluoxetine 20 mg capsule 20 mg PO DAILY 02/21/23 07/06/25 History ibuprofen 200 mg tablet 400 mg PO BID PRN Pain 04/23/23 07/06/25 History trazodone 100 mg tablet 100 mg PO BEDTIME 04/23/23 07/06/25 History atenolol 25 mg PO BID 04/25/23 07/06/25 History nicotine (polacrilex) 4 mg PO PRN PRN Nicotine Cravings 05/01/23 07/06/25 History acetaminophen 325 mg capsule 650 mg (2 x 325 mg) PO QID PRN 05/03/23 07/06/25 Rx (Tylenol) pain #60 caps acamprosate 333 mg tablet,delayed 666 mg PO 3XD 07/06/25 07/06/25 History release clonidine HCl 0.1 mg tablet 0.2 mg PO TID 07/06/25 07/06/25 History hydroxyzine HCl 25 mg tablet 25 mg PO Q6H 07/06/25 07/06/25 History Allergies Allergy/AdvReac Type Severity Reaction Status Date / Time No Known Drug Allergies Allergy Verified 07/06/25 21:03 Exam Vital Signs (past 8 hours): - 07/06/25 22:00 07/06/25 22:00 07/06/25 22:30 Pulse Rate 82 86 Respiratory Rate 19 21 Blood Pressure 113/64 Pulse Oximetry 96 97 Oxygen Delivery Method Oxygen Flow Rate 07/06/25 23:00 07/06/25 23:04 07/06/25 23:04 Pulse Rate 107 H 97 H Respiratory Rate 18 Blood Pressure 115/63 Pulse Oximetry 91 Oxygen Delivery Method Oxygen Flow Rate 07/06/25 23:30 07/07/25 00:00 07/07/25 00:00 Pulse Rate 99 H 108 H Respiratory Rate 18 24 Blood Pressure 158/88 H Pulse Oximetry 94 Oxygen Delivery Method Nasal Cannula Oxygen Flow Rate 2 07/07/25 00:30 07/07/25 01:00 07/07/25 01:00 Pulse Rate 108 H 97 H Respiratory Rate 22 20 Blood Pressure 163/77 H Pulse Oximetry 90 L 89 L Oxygen Delivery Method Oxygen Flow Rate 07/07/25 01:30 07/07/25 02:00 07/07/25 02:00 Pulse Rate 87 97 H Respiratory Rate 25 H 17 Blood Pressure 172/85 H Pulse Oximetry 93 95 Oxygen Delivery Method Nasal Cannula Nasal Cannula Oxygen Flow Rate 2 2 07/07/25 02:30 07/07/25 03:00 07/07/25 03:13 Pulse Rate 92 H 95 H 102 H Respiratory Rate 20 32 H 23 Blood Pressure Pulse Oximetry 87 L 97 Oxygen Delivery Method Oxygen Flow Rate 07/07/25 03:13 07/07/25 03:30 07/07/25 04:00 Pulse Rate 91 H 93 H Respiratory Rate 18 23 Blood Pressure 177/89 H Pulse Oximetry 96 95 Oxygen Delivery Method Nasal Cannula Oxygen Flow Rate 2 07/07/25 04:00 Pulse Rate Respiratory Rate Blood Pressure 126/60 Pulse Oximetry Oxygen Delivery Method Oxygen Flow Rate Fraction of Inspired Oxygen 28 SaO2/FiO2 Ratio 339 Oxygen Delivery Method Nasal Cannula Oxygen Flow Rate 2 Const General: anxious Orientation: alert, awake and oriented x3 HENMT Other: Forehead contusion due to previous fall Resp Effort & Inspection: normal respiratory effort and able to speak in complete sentences Cardio Rate: regular rate GI Palpation: soft (NDNT, non-peritoneal exam) Extrem General: no pedal edema and no calf tenderness Objective Labs 07/06/25 11:50 07/06/25 11:50 Labs: Laboratory Results - last 24 hr 07/06/25 07/06/25 07/06/25 11:50 13:53 18:00 WBC 5.9 RBC 3.89 L Hgb 13.1 L Hct 38.0 L MCV 97.6 MCH 33.7 MCHC 34.5 RDW 13.7 Plt Count 321 Neut % (Auto) 37.1 L Lymph % (Auto) 46.9 H [place] % (Auto) 12.7 Eos % (Auto) 2.5 Baso % (Auto) 0.8 Neut # (Auto) 2200 Lymph # (Auto) 2700 [place] # (Auto) 700 Eos # (Auto) 100 Baso # (Auto) 0 Sodium 143 Potassium 3.7 Chloride 101 Carbon Dioxide 28 BUN 11 Creatinine 0.80 Estimated GFR > 60 BUN/Creatinine Ratio 13.8 Glucose 121 H Lactate 3.4 H 2.8 H Calcium 8.8 Total Bilirubin 0.6 AST 81 H ALT 40 Alkaline Phosphatase 77 Total Protein 8.3 H Albumin 4.7 Globulin 3.6 Albumin/Globulin Ratio 1.3 Lipase 191 Urine Color Yellow Urine Appearance Clear Urine pH 6.0 Ur Specific [place] 1.020 Urine Protein Negative Urine Glucose (UA) Negative Urine Ketones Negative Urine Occult Blood Negative Urine Nitrate Negative Urine Bilirubin Negative Urine Urobilinogen 0.2 Ur Leukocyte Esterase Negative Urine RBC None seen Urine WBC 0-1/hpf Ur Squamous Epith Cells 0-1 /hpf Urine Bacteria None seen Ur Culture Indicated? Cult not indicated Vol Urine Centrifuged 10ml (spun) U Opiates 300ng/mL cut Negative Ur Oxycodone Screen Negative Urine Methadone Screen Negative Ur Barbiturates Screen Positive H U Tricyclic Antidepress Negative Ur Phencyclidine Scrn Negative Ur Amphetamines Screen Negative U Methamphetamines Scrn Negative Ur MDMA Scrn (Ecstasy) Negative U Benzodiazepines Scrn Positive H Urine Cocaine Screen Negative U Marijuana (THC) Screen Positive H Urine Specific [place] Ethyl Alcohol 417 H* Ur Creatinine 07/06/25 18:00 WBC RBC Hgb Hct MCV MCH MCHC RDW Plt Count Neut % (Auto) Lymph % (Auto) [place] % (Auto) Eos % (Auto) Baso % (Auto) Neut # (Auto) Lymph # (Auto) [place] # (Auto) Eos # (Auto) Baso # (Auto) Sodium Potassium Chloride Carbon Dioxide BUN Creatinine Estimated GFR BUN/Creatinine Ratio Glucose Lactate Calcium Total Bilirubin AST ALT Alkaline Phosphatase Total Protein Albumin Globulin Albumin/Globulin Ratio Lipase Urine Color Urine Appearance Urine pH Normal Ur Specific [place] Urine Protein Urine Glucose (UA) Urine Ketones Urine Occult Blood Urine Nitrate Urine Bilirubin Urine Urobilinogen Ur Leukocyte Esterase Urine RBC Urine WBC Ur Squamous Epith Cells Urine Bacteria Ur Culture Indicated? Vol Urine Centrifuged U Opiates 300ng/mL cut Ur Oxycodone Screen Urine Methadone Screen Ur Barbiturates Screen U Tricyclic Antidepress Ur Phencyclidine Scrn Ur Amphetamines Screen U Methamphetamines Scrn Ur MDMA Scrn (Ecstasy) U Benzodiazepines Scrn Urine Cocaine Screen U Marijuana (THC) Screen Urine Specific [place] Normal Ethyl Alcohol Ur Creatinine Normal PFSH Medical History HTN (hypertension) Anxiety Hernia Diverticulitis Surgical History Hx of arthroscopy of left knee (~04/2022) Hx of colonoscopy (04/16/23) Social History marital status: unmarried,single household members: none lives independently: Yes occupational status: employed Tobacco & Substance Use alcohol intake: current substance use type: does not use Assessment & Plan Assessment and plan (1) Small bowel mass: Status: Acute (2) Disorder of jejunum: Status: Acute Plan Plan elective EGD to evaluate, possible biopsy. Likely able to reach the area with upper endoscopy. Can be done outpatient if patient goes home. Procedure discussed with patient and he is agreeable to proceed. Time-Based Coding :: [TOTAL MINUTES] spent with patient and on the chart (including review of chart, obtaining history, exam, reviewing outside data, placing orders, documenting exam and treatment plan, and counseling patient) on [DATE]. PROFEE Charge Codes Inpatient or Observation consultation: [id number]
--- NOTE | 2025-07-07 06:03 | PC.NURSE ---
Pt states he would like to go home. asked if he could wait for the drLizzeth to see him in the morning and he agreed.
[2025-07-07] MEDS: PANTOPRAZOLE DR 20 MG TABLET PO (08:19)
[2025-07-07] MEDS: SODIUM CHLORIDE 0.9% 1,000 ML 100 ML IV (08:33)
[2025-07-07] MEDS: MULTIVITAMIN 1 TABLET 1 TAB PO (10:07)
[2025-07-07] MEDS: THIAMINE 100 MG TABLET PO (10:08)
[2025-07-07] MEDS: ACETAMINOPHEN 325 MG TABLET 650 MG PO (10:35)
[2025-07-07] MEDS: NICOTINE 14 PATCH 14 MG TOP (10:37)
[2025-07-07] MEDS: FOLIC ACID 1 MG TABLET PO (10:38)
[2025-07-07] MEDS: CIPROFLOXACIN 400 MG/200 ML PIGGYBACK 200 MG IV ×2 (10:40→22:05)
[2025-07-07] MEDS: DOCUSATE 100 MG CAPSULE PO ×2 (10:40→21:14)
[2025-07-07] MEDS: dexmedeTOMIDine in 0.9 % NaCL 400 MCG/100 ML PLAST..BAG IV (12:45)
--- NOTE | 2025-07-07 12:50 | PC.NURSE ---
NS continuous running at time of d/c to ICU. See MAR.
--- NOTE | 2025-07-07 14:01 | CM.IDA ---
Initial DCP Assessment Patient is 54 y/o male who presents to ED via EMS yesterday due to concern for ETOH withdrawals. Patient had similar presentation to the ED on 07/03/25 and chose to d/c to home. Patient was admitted to regarding ETOH withdrawals on 06/25/25 and chose to leave AMA. Patient presents seeking [facility] detox and rehab upon this presentation to the hospital. Patient's PCP is Dr. Breen, Patient has [employer] insurance. DIP TUBE ASSEMBLER MACHINE enters room to meet with patient, present in room is patient's sister Praveena who is listed DPOA for patient. Praveena provided DPOA paperwork that has been scanned into EMR. Patient presents as A/Ox4. Both patient and sister indicate interest for [facility] detox and rehab upon medical clearance. DIP TUBE ASSEMBLER MACHINE discusses patient's stay and admission and patient endorses his intent to stay until medical clearance. Patient resides in the [facility] by himself, it is reported that patient has a landlady that lives on the property and has been a good support and friend that checks on patient regularly. Patient endorses he is independent with ADLs and drives. 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 Patient denies hx of going to detox, rehab, outpatient [facility] or attending AA. Patient states he usually drinks at least 2 tall rum mixed drinks a day. Patient endorses hx of shakiness and brain fog withdrawal symptoms. Patient endorses he had a period of sobriety in 1998-early when he was dating someone who did not support his drinking. Patient's sister is a good support to patient who resides in [place], she states she has been researching rehab facilities. They do not specify a specific rehab location but indicate interest for a facility closer to home. Patient's sister mentions [facility] and [email or web address], DIP TUBE ASSEMBLER MACHINE identifies [facility] as an option as well. Patient's BAL was 417 upon presentation to the ED, patient was also positive for Marijuana, Barbituates and Benzodiazepines. Patient has been given Ativan and Phenobarbital for withdrawal symptoms. DIP TUBE ASSEMBLER MACHINE calls [facility], it is reported that they take patient's insurance for the detox and rehab program. DIP TUBE ASSEMBLER MACHINE calls [facility] and leaves . DIP TUBE ASSEMBLER MACHINE calls [email or web address], it is reported that this facility requires a drug and alcohol assessment by SUDP prior to review of admission. Patient has been admitted to ICU due to concern for ETOH withdrawals. Current clinical impression diagnosis of Diverticulitis, L1 compression fracture and Disorder of jejunum as well. MARYBETH Gross reports that patient's insurance company reached out regarding sending a list of rehab facilities that accept patient's insurance. Plan: patient admitted to ICU for further evaluation and treatment, follow up with [facility] rehab facilities regarding admission upon medical clearance, f/u with patient and sister. ROSITA Brennan Discharge Planning/Care Management CM Discharge Assessment Start: 07/06/25 20:14 Freq: Status: Active Protocol: Document 07/07/25 13:52 LN (Rec: 07/07/25 14:00 LN [id number]) Discharge Planning Assessment Assigned Discharge ROSITA Sommer Drawing Hand Provider Dr. Breen [facility]/Assigned Praveena Young (sister) Designee Name Contact Information [phone] Advance Directives? Yes Advance Directives Yes on File History Provided By Patient,Family Member,Medical Record Has Patient been Yes admitted in last 30 days? Comment 06/25/25-06/26/25 patient chose to leave AMA Prior Living Apartment/Condo Arrangements Household Members none Type of Drives own vehicle transporation used prior to admit Independent with ADL Yes 's Is patient alert and Yes oriented? Patient/Family Drug/Alcohol Rehab Preference Additional Comment Patient is interested in [facility] rehab at this time
--- NOTE | 2025-07-07 14:14 | PM.HP.1 ---
History of Present Illness History of Present Illness Date Patient Seen: 07/07/25 Time Patient Seen: 10:00 Chief complaint: ETOH anxiety Narrative: CC: EtOH withdrawal Pt well known to my practice presents to ED in extreme intoxication and withdrawal quite high CIWQAS score still shaky and nervous after 1mg IV ativan we discussed things he will go to inpatient rehab we will get him stabilized here first. He feels basically ok except for pain from various falls lately - prominent facial contusions noted. Seen by Dr. Leach this morning for consideration re: thickened jejunum I agree with Dr. Leach this can be f/up as outpt. [facility] Medical History HTN (hypertension) Anxiety Hernia Diverticulitis Surgical History Hx of arthroscopy of left knee (~04/2022) Hx of colonoscopy (04/16/23) Social History marital status: unmarried,single household members: none lives independently: Yes occupational status: employed alcohol intake: current substance use type: does not use Meds Home Medications and Allergies Home Medications ?Medication ?Instructions ?Recorded ?Confirmed ?Type fluoxetine 20 mg capsule 20 mg PO DAILY 02/21/23 07/06/25 History ibuprofen 200 mg tablet 400 mg PO BID PRN Pain 04/23/23 07/06/25 History trazodone 100 mg tablet 100 mg PO BEDTIME 04/23/23 07/06/25 History atenolol 25 mg PO BID 04/25/23 07/06/25 History nicotine (polacrilex) 4 mg PO PRN PRN Nicotine Cravings 05/01/23 07/06/25 History acetaminophen 325 mg capsule 650 mg (2 x 325 mg) PO QID PRN 05/03/23 07/06/25 Rx (Tylenol) pain #60 caps acamprosate 333 mg tablet,delayed 666 mg PO 3XD 07/06/25 07/06/25 History release clonidine HCl 0.1 mg tablet 0.2 mg PO TID 07/06/25 07/06/25 History hydroxyzine HCl 25 mg tablet 25 mg PO Q6H 07/06/25 07/06/25 History Allergies Allergy/AdvReac Type Severity Reaction Status Date / Time No Known Drug Allergies Allergy Verified 07/06/25 21:03 Review of Systems Review of Systems Narrative: All systems reviewed and negative except as otherwise documented Exam Vital Signs (past 8 hours): - 07/07/25 06:30 07/07/25 07:00 07/07/25 07:30 Pulse Rate 90 93 H 88 Respiratory Rate 29 H 16 16 Blood Pressure Pulse Oximetry 96 98 97 Oxygen Delivery Method Oxygen Flow Rate 07/07/25 08:00 07/07/25 08:00 07/07/25 08:30 Pulse Rate 88 91 H Respiratory Rate 17 23 Blood Pressure 171/87 H Pulse Oximetry 97 99 Oxygen Delivery Method High Flow Nasal Cannula Oxygen Flow Rate 2 07/07/25 09:00 07/07/25 09:30 07/07/25 09:47 Pulse Rate 88 93 H 92 H Respiratory Rate 18 19 25 H Blood Pressure Pulse Oximetry 99 99 98 Oxygen Delivery Method Nasal Cannula Oxygen Flow Rate 2 07/07/25 09:47 07/07/25 10:00 07/07/25 10:00 Pulse Rate 95 H Respiratory Rate 23 Blood Pressure 171/94 H 164/89 H Pulse Oximetry 97 Oxygen Delivery Method Oxygen Flow Rate 07/07/25 10:30 07/07/25 10:38 07/07/25 11:00 Pulse Rate 89 80 88 Respiratory Rate 21 27 H Blood Pressure 164/89 H Pulse Oximetry 98 100 Oxygen Delivery Method Oxygen Flow Rate 07/07/25 11:30 07/07/25 12:00 07/07/25 12:00 Pulse Rate 82 86 Respiratory Rate 24 27 H Blood Pressure Pulse Oximetry 99 98 Oxygen Delivery Method Nasal Cannula Room Air Room Air Oxygen Flow Rate 2 07/07/25 12:01 07/07/25 12:01 07/07/25 12:30 Pulse Rate 83 93 H Respiratory Rate 23 26 H Blood Pressure 140/73 Pulse Oximetry 98 97 Oxygen Delivery Method Room Air Oxygen Flow Rate 07/07/25 12:45 07/07/25 12:45 07/07/25 13:00 Pulse Rate 84 70 Respiratory Rate 18 Blood Pressure 134/84 Pulse Oximetry 94 94 Oxygen Delivery Method Oxygen Flow Rate 07/07/25 13:30 07/07/25 13:30 Pulse Rate 75 Respiratory Rate 20 Blood Pressure 125/79 Pulse Oximetry 92 Oxygen Delivery Method Oxygen Flow Rate Fraction of Inspired Oxygen 28 SaO2/FiO2 Ratio 339 Oxygen Delivery Method Room Air Oxygen Flow Rate 2 Narrative Exam Narrative: laying in hospital bed looking anxious HENMT Other: rising shiner bruising of L periocular - extraocular movements are intact Resp Other: clear to auscultation bilaterally Cardio Other: tachy, s1s2 GI Other: soft nontender active bowel sounds Neuro Other: alert awake oriented anxious tremulous Objective Labs 07/06/25 11:50 07/06/25 11:50 Labs: Laboratory Results - last 24 hr 07/06/25 07/06/25 07/06/25 13:53 18:00 18:00 Lactate 2.8 H Urine Color Yellow Urine Appearance Clear Urine pH 6.0 Normal Ur Specific Stella 1.020 Urine Protein Negative Urine Glucose (UA) Negative Urine Ketones Negative Urine Occult Blood Negative Urine Nitrate Negative Urine Bilirubin Negative Urine Urobilinogen 0.2 Ur Leukocyte Esterase Negative Urine RBC None seen Urine WBC 0-1/hpf Ur Squamous Epith Cells 0-1 /hpf Urine Bacteria None seen Ur Culture Indicated? Cult not indicated Vol Urine Centrifuged 10ml (spun) U Opiates 300ng/mL cut Negative Ur Oxycodone Screen Negative Urine Methadone Screen Negative Ur Barbiturates Screen Positive H U Tricyclic Antidepress Negative Ur Phencyclidine Scrn Negative Ur Amphetamines Screen Negative U Methamphetamines Scrn Negative Ur MDMA Scrn (Ecstasy) Negative U Benzodiazepines Scrn Positive H Urine Cocaine Screen Negative U Marijuana (THC) Screen Positive H Urine Specific Stella Normal Ur Creatinine Normal Assessment & Plan Assessment & Plan narrative: #acute alcohol intoxication, in withdrawal He is basically withdrawing as soon as he stops drinking - last drink yesterday CIWAS score through the roof this morning - he usually AMAs I am hopeful he will actually stick this out. We will plan on continuing outpt meds clonidine and acamprosate with librium 25 tid and copious prn iv benzos as needed - goal is dc to inpatient rehab treatment facility. #facial contusions #hx of recent R fibula fracture #hx of falls fall risk - PT eval #thickened wall of jejunum noted on imaging - seen by Dr. Leach who agrees this can wait for inpt f/up - may be reactive to large amount of alcohol. general diet reports digestion has been ok . Dispo: admit inpt icu goal is dc to inpt treatment MDM: sister code: full diet: general DVT: lovenox Time-Based Coding :: [TOTAL MINUTES] spent with patient and on the chart (including review of chart, obtaining history, exam, reviewing outside data, placing orders, documenting exam and treatment plan, and counseling patient) on [DATE].
[2025-07-07 14:39] LABS: MRSA (Nasal) PCR NOT DETECTED (Not Detect)
--- NOTE | 2025-07-07 14:39 | CM.DPNOTE ---
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 report he is a good contact for DCP Coordination. will put together a full list of INPT ETOH facilities that take pt's insurance to share with our team . per Dr. Breen, really wants to present a united front and encourage pt to consider INPT ETOH rehab. see other CM notes for more MARYBETH Villalobos
[2025-07-07] MEDS: SODIUM CHLORIDE 0.9% FLUSH 10 ML IV (21:15)
[2025-07-08] VITALS (59 sets, daily range): BP systolic 130–230; BP diastolic 84–118; PULSE 53–83; RESP 16–37; TEMP 36.5–37.1; O2SAT 64–98
[2025-07-08] MEDS: dexmedeTOMIDine in 0.9 % NaCL 400 MCG/100 ML PLAST..BAG 11.25 MCG IV (00:19)
[2025-07-08] MEDS: metroNIDAZOLE 500 MG/100 ML PIGGYBACK 100 MG IV (04:29)
[2025-07-08] MEDS: PANTOPRAZOLE DR 20 MG TABLET PO (05:58)
[2025-07-08] MEDS: NICOTINE 14 PATCH 14 MG TOP (08:17)
[2025-07-08] MEDS: FOLIC ACID 1 MG TABLET PO (08:19)
[2025-07-08] MEDS: THIAMINE 100 MG TABLET PO (08:20)
[2025-07-08] MEDS: MULTIVITAMIN 1 TABLET 1 TAB PO (08:20)
[2025-07-08] MEDS: SODIUM CHLORIDE 0.9% FLUSH 10 ML IV ×2 (09:16→20:39)
[2025-07-08] MEDS: dexmedeTOMIDine in 0.9 % NaCL 400 MCG/100 ML PLAST..BAG 33.75 MCG IV ×5 (10:04→23:59)
--- NOTE | 2025-07-08 10:08 | P.PN_ITS ---
Subjective Subjective Date Patient Seen: 07/08/25 Time Patient Seen: 10:08 Interval history: RN states patient treated for agitation/withdrawl this morning, requested not to disturb patient Exam Vital Signs (past 8 hours): - 07/08/25 02:30 07/08/25 03:00 07/08/25 03:00 Temperature Pulse Rate 64 71 Respiratory Rate 18 17 Blood Pressure 148/86 H Pulse Oximetry 95 94 Oxygen Delivery Method 07/08/25 03:30 07/08/25 04:00 07/08/25 04:01 Temperature Pulse Rate 62 67 62 Respiratory Rate 20 23 22 Blood Pressure Pulse Oximetry 95 95 96 Oxygen Delivery Method 07/08/25 04:01 07/08/25 04:30 07/08/25 05:00 Temperature Pulse Rate 57 L Respiratory Rate 16 Blood Pressure 188/97 H 216/116 H Pulse Oximetry 96 Oxygen Delivery Method 07/08/25 05:00 07/08/25 05:02 07/08/25 05:02 Temperature Pulse Rate 53 L 56 L Respiratory Rate 18 18 Blood Pressure 202/118 H Pulse Oximetry 95 95 Oxygen Delivery Method 07/08/25 05:30 07/08/25 06:00 07/08/25 06:00 Temperature Pulse Rate 77 75 Respiratory Rate 22 Blood Pressure 202/104 H 204/104 H Pulse Oximetry 94 Oxygen Delivery Method 07/08/25 06:00 07/08/25 06:00 07/08/25 06:30 Temperature Pulse Rate 69 53 L Respiratory Rate 20 18 Blood Pressure Pulse Oximetry 96 94 Oxygen Delivery Method Room Air 07/08/25 07:00 07/08/25 07:00 07/08/25 07:30 Temperature Pulse Rate 53 L 60 Respiratory Rate 17 16 Blood Pressure 230/118 H Pulse Oximetry 96 97 Oxygen Delivery Method 07/08/25 08:00 07/08/25 08:00 07/08/25 08:01 Temperature 98.8 F Pulse Rate 75 Respiratory Rate 19 Blood Pressure 167/99 H Pulse Oximetry 98 Oxygen Delivery Method 07/08/25 08:01 07/08/25 08:30 07/08/25 09:00 Temperature Pulse Rate 72 65 56 L Respiratory Rate 22 17 20 Blood Pressure Pulse Oximetry 98 97 98 Oxygen Delivery Method 07/08/25 09:01 07/08/25 09:01 Temperature Pulse Rate 55 L Respiratory Rate 19 Blood Pressure 194/94 H Pulse Oximetry 96 Oxygen Delivery Method Fraction of Inspired Oxygen 28 SaO2/FiO2 Ratio 339 Oxygen Delivery Method Room Air Oxygen Flow Rate 2 Objective Labs 07/06/25 11:50 07/06/25 11:50 Labs: Laboratory Results - last 24 hr 07/07/25 12:51 Nasal Screen MRSA (PCR) Not detected PFSH Medical History HTN (hypertension) Anxiety Hernia Diverticulitis Surgical History Hx of arthroscopy of left knee (~04/2022) Hx of colonoscopy (04/16/23) Social History marital status: unmarried,single household members: none lives independently: Yes occupational status: employed alcohol intake: current substance use type: does not use Assessment & Plan Assessment and plan (1) Small bowel mass: Status: Acute Plan Small bowel thickening on CT Plan elective EGD, outpatient Will sign off for now Time-Based Coding :: [TOTAL MINUTES] spent with patient and on the chart (including review of chart, obtaining history, exam, reviewing outside data, placing orders, documenting exam and treatment plan, and counseling patient) on [DATE]. 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
--- NOTE | 2025-07-08 10:14 | DIET.CONS ---
Dietary Consultation Note Admission Date: 07/06/2025 20:08 Assessment: 54 y M admitted for EtOH withdrawal. Dietitian screened for low MNA score. CIWA 8 this morning, EMR reviewed. PMH of alcohol misuse, drinking rum daily. Likely malnourished r/t excessive EtOH intake. Per surgery pt with thickening in the proximal jejunum concerning for malignancy, will f/u with surgery OP. Ht: 172.72 cm Wt: 90 kg BMI: 30.2 UBW: 85.275 kg on 06/25/25 Last BM: 07/07/25 (07/07/25 18:00) MNA: 9 Nolan Score: 19 Diet: 07/07/25 Lunch General (Regular) Diet Diet Modifications: Labs: RBC 3.89 X10^6/uL (4.5-5.9) L 07/06/25 11:50 Hgb 13.1 g/dL (13.5-17.5) L 07/06/25 11:50 Hct 38.0 % (41-53) L 07/06/25 11:50 Creatinine 0.80 mg/dL (0.66-1.25) 07/06/25 11:50 Lactate 2.8 mmol/L (0.7-2.1) H 07/06/25 13:53 Nutrition Diagnosis: Inadequate oral intakes r/t excessive EtOH intake aeb hx of chronic alcohol use with likely inadequate intake of nutrient and protein foods Interventions: Thiamine/folic acid/multivitamin already ordered Follow PO intakes EER: 2000 kcals (MSJx1.2), 65-80 g protein (.8-1 g/kg adjusted IBW per age) Monitoring/Evaluations: f/u for full assessment with pt when able, following PO intakes Electronically Signed by: Gabbi Escobedo 07/08/25 10:14 Clinical Dietitian [address] [address]
--- NOTE | 2025-07-08 11:11 | CM.DPC ---
DCP Cont: Per MD, would still like to encourage the patient towards Inpt ETOH tx at discharge and present as a united front with this recommendation to the patient. Pt likely here at least another couple days as just starting to have more withdrawal symptoms today. Per RN, pt getting more agitated and having withdrawal symptoms and increasing his medications and CIWA around 15 and likely not appropriate for d/c discussion today. SW contacted pt's [facility] insurance RN CM Luis [phone] and he confirms he has a short list of In Network/Preferred contracted ETOH facilities and emailed them to this SW who printed them off. The list includes [facility] and [facility] and then [facility] which appears to only offer outpt СЕРГЕЙ tx services. Plan: SW to follow for plan of further discussion with pt bedside when more medically appropriate to confirm agreement with Inpt СЕРГЕЙ tx at either [facility] or [facility] pending bed availability. MARYBETH Almanza
--- NOTE | 2025-07-08 11:48 | PC.NURSE ---
Addendum entered by Hazel Miner RN 07/08/25 13:39: Pt woke up again, very confused, pulled out IV and got out of bed, with bed alarm going off and blood every where myself and 2 other nurses got him to the chair (russell pritchett, very unsteady on his feet) while we cleaned up pt and bed. This nurse reoriented pt, explained where he is, why he is here and what the plan is to help him. Pt proceed to state that he are over medicating him and he is refusing all medications at this time. This nurse left him in the care of PCT Luis Armando, pt proceeded to call a friend who is a chief of police and various other friends stating that the nurse Hazel is trying to kill me. This nurse called Dr Breen and Charge nurse Lata, both of who talked to pt who now agrees to take some Ativan and Librium. Care ongoing Original Note: Dayshift note pt becoming more agitated, confused and combative, states that he heard people screaming, yelling and fighting all night. Very upset, it took this nurse at least 1 hour to calm pt down, gave PO meds and spoke to Dr Breen at bedside, gave a loading dose and scheduled phenobarbital for Q8H. At that time this nurse noted that Precedex gtt was infusing at 1.5mcg/kg not the 1.5mL/hr that is charted in the emar. Pt pulled out IV and required ultrasound guided IV placement, CIWA 8-18 requiring supplemental Ativan. No further needs at this time, call light within reach, care ongoing
--- NOTE | 2025-07-08 16:44 | PM.PN.1 ---
Subjective Subjective Date Patient Seen: 07/08/25 Time Patient Seen: 09:30 Interval history: CC: Etoh withdrawal, severe coming up on 48 hrs since last drink anticipate worsening symptoms today continue CIWA with librium phenobarbitol ativan clonidine etc Very nervous and shaky Able to eat a little breakfast Exam Vital Signs (past 8 hours): - 07/08/25 09:00 07/08/25 09:01 07/08/25 09:01 Temperature Pulse Rate 56 L 55 L Respiratory Rate 20 19 Blood Pressure 194/94 H Pulse Oximetry 98 96 Oxygen Delivery Method Oxygen Flow Rate 07/08/25 09:30 07/08/25 09:55 07/08/25 10:00 Temperature Pulse Rate 74 83 Respiratory Rate 21 35 H Blood Pressure 194/94 H Pulse Oximetry 97 Oxygen Delivery Method Room Air Oxygen Flow Rate 07/08/25 10:00 07/08/25 10:30 07/08/25 11:00 Temperature Pulse Rate 71 76 77 Respiratory Rate 30 H 23 20 Blood Pressure Pulse Oximetry 93 Oxygen Delivery Method Oxygen Flow Rate 07/08/25 11:30 07/08/25 12:00 07/08/25 12:30 Temperature Pulse Rate 74 66 61 Respiratory Rate 23 20 21 Blood Pressure Pulse Oximetry 95 95 97 Oxygen Delivery Method Oxygen Flow Rate 07/08/25 14:00 07/08/25 14:07 07/08/25 14:37 Temperature Pulse Rate 78 Respiratory Rate 35 H Blood Pressure Pulse Oximetry 64 L Oxygen Delivery Method Room Air Oxygen Flow Rate 07/08/25 14:42 07/08/25 14:42 07/08/25 15:00 Temperature Pulse Rate 71 Respiratory Rate 21 Blood Pressure 138/91 H 164/96 H Pulse Oximetry 93 Oxygen Delivery Method Oxygen Flow Rate 07/08/25 15:00 07/08/25 16:00 Temperature 98.3 F Pulse Rate 60 66 Respiratory Rate 20 21 Blood Pressure 168/99 H Pulse Oximetry 94 93 Oxygen Delivery Method Oxygen Flow Rate 0 Fraction of Inspired Oxygen 28 SaO2/FiO2 Ratio 339 Oxygen Delivery Method Room Air Oxygen Flow Rate 0 Narrative Exam Narrative: laying in hospital bed HENMT Other: contusion to L side of face healing Resp Other: clear to auscultation bilaterally Cardio Other: a little tachy, regular rate and rhythm, s1/s2 GI Other: soft nontender nondistended Neuro Other: alert awake conversant moving all limbs looks shaky Objective Labs 10/14/25 11:50 07/06/25 11:50 PFSH Medical History HTN (hypertension) Anxiety Hernia Diverticulitis Surgical History Hx of arthroscopy of left knee (~04/2022) Hx of colonoscopy (04/16/23) Social History marital status: unmarried,single household members: none lives independently: Yes occupational status: employed alcohol intake: current substance use type: does not use Assessment & Plan Assessment & Plan narrative: #acute alcohol intoxication, in withdrawal Doing well overall he is right on track anticipate severe symptoms continue meds phenobarbitol clonidine and acamprosate with librium 25 tid and copious prn iv benzos as needed - goal is eventual dc to inpatient rehab treatment facility. #facial contusions #hx of recent R fibula fracture #hx of falls fall risk - PT eval #thickened wall of jejunum noted on imaging - seen by Dr. Leach who agrees this can wait for inpt f/up - may be reactive to large amount of alcohol. general diet reports digestion has been ok. hold abx for now. Dispo: admit inpt icu goal is dc to inpt treatment MDM: sister code: full diet: general DVT: lovenox Time-Based Coding :: [TOTAL MINUTES] spent with patient and on the chart (including review of chart, obtaining history, exam, reviewing outside data, placing orders, documenting exam and treatment plan, and counseling patient) on [DATE].
[2025-07-08] MEDS: HALOPERIDOL 5 MG/ML VIAL IV (18:28)
[2025-07-08] MEDS: DEXTROSE 5%-0.45% NS 1,000 ML 100 ML IV (19:02)
[2025-07-09] VITALS (36 sets, daily range): BP systolic 83–144; BP diastolic 51–92; PULSE 63–104; RESP 17–27; TEMP 36.4–36.9; O2SAT 91–96
[2025-07-09] MEDS: dexmedeTOMIDine in 0.9 % NaCL 400 MCG/100 ML PLAST..BAG 33.75 MCG IV ×2 (03:03→06:09)
[2025-07-09] MEDS: DEXTROSE 5%-0.45% NS 1,000 ML 100 ML IV ×2 (03:44→22:15)
[2025-07-09] MEDS: HALOPERIDOL 5 MG/ML VIAL IV (04:55)
[2025-07-09] MEDS: PANTOPRAZOLE DR 20 MG TABLET PO (07:07)
--- NOTE | 2025-07-09 09:34 | PC.NURSE ---
0820 PT PULLED OUT IV. REMOVED TELEMETRY/ VITAL MONITORING. STANDING UP OUT OF BED REFUSING CARE. VERBALLY AGGRESSIVE/ COMBATIVE. MOODY, RN, LAYLA, RN, AND ANNIE, RN AT BEDSIDE. PT CLEANED UP/ SOILED LINENS CHANGED. WAS ABLE TO CALM DOWN/ REQUESTED MOVING BACK TO BED. DR ANTHONY AT BEDSIDE AWARE OF SITUATION. PATIENT ASLEEP IN BED. REFUSING ALL MONITORING AND MEDICATIONS 1:1 SITTER AT BEDSIDE FOR SAFETY. CARE ONGOING. CALL LIGHT WITHIN REACH.
--- NOTE | 2025-07-09 09:50 | PM.PN.1 ---
Subjective Subjective Interval history: CC: etoh withdrawal Today is 48-72 hours since last drink he is pretty rough shape - pulled out lines in paranoia this morning currently sleeping with 1:1 sitter. Exam Vital Signs (past 8 hours): - 07/09/25 02:00 07/09/25 02:00 07/09/25 02:30 Pulse Rate 79 75 Respiratory Rate 27 H 22 Blood Pressure Pulse Oximetry 91 94 Oxygen Delivery Method Room Air 07/09/25 03:00 07/09/25 03:30 07/09/25 04:00 Pulse Rate 68 68 71 Respiratory Rate 22 24 20 Blood Pressure Pulse Oximetry 94 94 93 Oxygen Delivery Method 07/09/25 04:30 07/09/25 05:00 07/09/25 05:30 Pulse Rate 74 68 63 Respiratory Rate 21 22 24 Blood Pressure Pulse Oximetry 93 95 95 Oxygen Delivery Method 07/09/25 05:46 07/09/25 05:46 07/09/25 06:00 Pulse Rate 70 68 Respiratory Rate 20 23 Blood Pressure 144/92 H 144/92 H Pulse Oximetry 96 95 Oxygen Delivery Method 07/09/25 06:00 07/09/25 06:00 07/09/25 06:30 Pulse Rate 68 72 Respiratory Rate 23 20 Blood Pressure Pulse Oximetry 95 95 Oxygen Delivery Method Room Air 07/09/25 06:58 Pulse Rate 72 Respiratory Rate 24 Blood Pressure 142/89 H Pulse Oximetry Oxygen Delivery Method Fraction of Inspired Oxygen 28 SaO2/FiO2 Ratio 339 Oxygen Delivery Method Room Air Oxygen Flow Rate 0 Narrative Exam Narrative: snoozing in hospital bed Resp Other: unlabored breathing Cardio Other: regular rate no pedal edema Skin Other: ecchymoses on L periorbital, flank Objective Labs 07/06/25 11:50 07/06/25 11:50 PFSH Medical History HTN (hypertension) Anxiety Hernia Diverticulitis Surgical History Hx of arthroscopy of left knee (~04/2022) Hx of colonoscopy (04/16/23) Social History marital status: unmarried,single household members: none lives independently: Yes occupational status: employed alcohol intake: current substance use type: does not use Assessment & Plan Assessment & Plan narrative: #acute alcohol intoxication, in withdrawal #delirium tremens Continue as able meds phenobarbitol clonidine and acamprosate with librium 25 tid and copious prn iv benzos as needed - goal is eventual dc to inpatient rehab treatment facility. IM Haldol available given lack of IV access. #facial contusions #hx of recent R fibula fracture #hx of falls fall risk - PT eval #thickened wall of jejunum noted on imaging - seen by Dr. Leach who agrees this can wait for inpt f/up - may be reactive to large amount of alcohol. general diet reports digestion has been ok. hold abx for now. Dispo: admit inpt icu goal is dc to inpt treatment MDM: code: full diet: general DVT: lovenox Time-Based Coding :: [TOTAL MINUTES] spent with patient and on the chart (including review of chart, obtaining history, exam, reviewing outside data, placing orders, documenting exam and treatment plan, and counseling patient) on [DATE].
[2025-07-09] MEDS: NICOTINE 14 PATCH 14 MG TOP (10:47)
[2025-07-09] MEDS: FOLIC ACID 1 MG TABLET PO (10:48)
[2025-07-09] MEDS: THIAMINE 100 MG TABLET PO (10:49)
[2025-07-09] MEDS: ACETAMINOPHEN 325 MG TABLET 650 MG PO (10:49)
[2025-07-09] MEDS: MULTIVITAMIN 1 TABLET 1 TAB PO (10:49)
[2025-07-09] MEDS: SODIUM CHLORIDE 0.9% 1,000 ML 1000 ML IV (15:09)
--- NOTE | 2025-07-09 17:09 | CM.DPNOTE ---
DCP note EMERGENCY MEDCL EMT reviewed EMR see RN note for more on behaviors during morning/day. threatening to leave AMA. per provider, medically stable in a day or so. EMERGENCY MEDCL EMT spoke with [place], per [facility], has beds and could accept medically. however, with pt's insurance, needs another medical reason to auth inpt СЕРГЕЙ at [facility]? pt does not have a medical management reason per their review of the clinicals this EMERGENCY MEDCL EMT faxed. EMERGENCY MEDCL EMT spoke with [facility], they are 5 day detox. could take if beds over weekend when stable. not sole leveler INT rehab option. ED EMERGENCY MEDCL EMT reports [facility] takes his ins, did not have time to further look into that option. EMERGENCY MEDCL EMT met with pt in room. calm and eating sandwhich. reports interested in INPT rehab at this time. P: anticipate INPT rehab when medically stable if bed/accepting facility found and pt agreeable. will continue to follow closely for DCP Coordination MARYBETH Villalobos
[2025-07-09] MEDS: SODIUM CHLORIDE 0.9% FLUSH 10 ML IV (21:36)
[2025-07-10] VITALS (42 sets, daily range): BP systolic 79–138; BP diastolic 50–86; PULSE 71–100; RESP 16–18; TEMP 36.2–37.1; O2SAT 82–97
[2025-07-10] MEDS: PANTOPRAZOLE DR 20 MG TABLET PO (07:23)
[2025-07-10] MEDS: FOLIC ACID 1 MG TABLET PO (09:06)
[2025-07-10] MEDS: NICOTINE 14 PATCH 14 MG TOP (09:06)
[2025-07-10] MEDS: THIAMINE 100 MG TABLET PO (09:06)
[2025-07-10] MEDS: MULTIVITAMIN 1 TABLET 1 TAB PO (09:06)
[2025-07-10] MEDS: SODIUM CHLORIDE 0.9% FLUSH 10 ML IV ×2 (09:08→21:12)
[2025-07-10] MEDS: DEXTROSE 5%-0.45% NS 1,000 ML 100 ML IV (09:21)
--- NOTE | 2025-07-10 09:28 | CM.DPC ---
CM left for Luis RAHMAN, ph# [phone]. Requested update on available male bed.
[2025-07-10 10:34] LABS: Add Manual Diff / Slide Review NO; Hematocrit 32.5 % (41-53); Hemoglobin 11.5 g/dL (13.5-17.5); Lymphocytes Absolute Auto 800 /uL (1100-4500); Mean Corpuscular HGB Conc 35.4 % (30-36); Mean Corpuscular Hemoglobin 34.5 PG (26-34); Mean Corpuscular Volume 97.6 fL (80-100); Platelet Count 217 X10^3/uL (150-400)
[2025-07-10 10:46] LABS: Alanine Aminotransferase 20 IU/L (<50); Albumin 3.6 g/dL (3.5-5.0); Albumin Globulin Ratio 1.2 (1.0-2.8); Alkaline Phosphatase 69 U/L (38-126); Blood Urea Nitrogen 5 mg/dL (9-20); Calcium 8.6 mg/dL (8.4-10.2); Carbon Dioxide 27 mmol/L (22-32); Chloride 101 mmol/L (98-107); Estimated Glomerular Filt Rate > 60 mL/min (>60); Globulin 3.0 g/dL (1.7-4.1); Glucose 120 mg/dL (70-99); HEMOLYSIS < 15 (0-50); Potassium 3.1 mmol/L (3.4-5.1); Sodium 135 mmol/L (137-145); Total Protein 6.6 g/dL (6.3-8.2)
[2025-07-10] MEDS: POTASSIUM CHLORIDE 20 MEQ TAB 40 MEQ PO ×2 (11:25→18:00)
--- NOTE | 2025-07-10 13:08 | PM.PN.IH.1 ---
Subjective Subjective Date Patient Seen: 07/10/25 Interval history: The pt this morning reports feeling significantly improved from prior days. He states that he has no specific concerns this morning. As per nursing, the pt has been very compliant this morning, and even allowed them to complete a blood draw. 1:[address] Exam Vital Signs (past 8 hours): - 07/10/25 06:00 07/10/25 07:15 07/10/25 07:27 Temperature 98.3 F Pulse Rate 71 Respiratory Rate 16 Blood Pressure 126/72 138/85 Pulse Oximetry 93 94 Oxygen Delivery Method Room Air Oxygen Flow Rate 0 07/10/25 07:27 07/10/25 07:30 07/10/25 08:00 Temperature Pulse Rate 83 82 Respiratory Rate Blood Pressure 112/65 Pulse Oximetry 95 95 Oxygen Delivery Method Oxygen Flow Rate 07/10/25 08:00 07/10/25 08:30 07/10/25 09:00 Temperature Pulse Rate 80 80 85 Respiratory Rate Blood Pressure Pulse Oximetry 94 94 94 Oxygen Delivery Method Oxygen Flow Rate 07/10/25 09:00 07/10/25 09:57 07/10/25 10:00 Temperature Pulse Rate 90 Respiratory Rate Blood Pressure 116/69 136/83 Pulse Oximetry 95 Oxygen Delivery Method Oxygen Flow Rate 07/10/25 10:15 07/10/25 10:30 07/10/25 11:00 Temperature Pulse Rate 91 H 90 Respiratory Rate Blood Pressure Pulse Oximetry 93 90 L Oxygen Delivery Method Room Air Oxygen Flow Rate 07/10/25 11:00 07/10/25 11:04 07/10/25 11:04 Temperature Pulse Rate 90 87 Respiratory Rate Blood Pressure 87/52 L Pulse Oximetry 94 94 Oxygen Delivery Method Oxygen Flow Rate 07/10/25 11:05 07/10/25 11:05 07/10/25 11:06 Temperature Pulse Rate 87 Respiratory Rate Blood Pressure 79/50 L 82/52 L Pulse Oximetry 94 Oxygen Delivery Method Oxygen Flow Rate 07/10/25 11:06 07/10/25 11:15 07/10/25 11:15 Temperature Pulse Rate 88 91 H Respiratory Rate Blood Pressure 86/54 L Pulse Oximetry 94 94 Oxygen Delivery Method Oxygen Flow Rate 07/10/25 11:30 07/10/25 11:30 07/10/25 11:45 Temperature Pulse Rate 94 H Respiratory Rate Blood Pressure 90/52 L 98/54 L Pulse Oximetry 95 Oxygen Delivery Method Oxygen Flow Rate 07/10/25 11:45 07/10/25 12:00 07/10/25 12:00 Temperature Pulse Rate 88 83 Respiratory Rate Blood Pressure 104/62 Pulse Oximetry 95 96 Oxygen Delivery Method Oxygen Flow Rate 07/10/25 12:15 07/10/25 12:15 07/10/25 12:30 Temperature 97.2 F L Pulse Rate 83 Respiratory Rate Blood Pressure 107/65 105/64 Pulse Oximetry 96 Oxygen Delivery Method Oxygen Flow Rate 07/10/25 12:30 07/10/25 12:54 07/10/25 12:54 Temperature Pulse Rate 79 95 H Respiratory Rate Blood Pressure 111/64 Pulse Oximetry 93 96 Oxygen Delivery Method Oxygen Flow Rate 07/10/25 13:00 Temperature Pulse Rate 88 Respiratory Rate Blood Pressure Pulse Oximetry 96 Oxygen Delivery Method Oxygen Flow Rate Fraction of Inspired Oxygen 28 SaO2/FiO2 Ratio 339 Oxygen Delivery Method Room Air Oxygen Flow Rate 0 Narrative Exam Narrative: Gen: NAD, laying comfortably in bed CV: RRR, no murmurs Resp: clear to auscultation bilaterally Abd: soft, nontender, nondistended Ext: no edema Objective Labs 07/10/25 09:54 07/10/25 09:54 Labs: Laboratory Results - last 24 hr 07/10/25 09:54 WBC 5.5 RBC 3.32 L Hgb 11.5 L Hct 32.5 L MCV 97.6 MCH 34.5 H MCHC 35.4 RDW 13.6 Plt Count 217 Neut % (Auto) 70.6 Lymph % (Auto) 15.1 L Garfield % (Auto) 9.6 Eos % (Auto) 4.0 Baso % (Auto) 0.7 Neut # (Auto) 3900 Lymph # (Auto) 800 L Garfield # (Auto) 500 Eos # (Auto) 200 Baso # (Auto) 0 Sodium 135 L Potassium 3.1 L Chloride 101 Carbon Dioxide 27 BUN 5 L Creatinine 0.66 Estimated GFR > 60 BUN/Creatinine Ratio 7.6 Glucose 120 H Calcium 8.6 Total Bilirubin 0.3 AST 33 ALT 20 Alkaline Phosphatase 69 Total Protein 6.6 Albumin 3.6 Globulin 3.0 Albumin/Globulin Ratio 1.2 [facility] Medical History HTN (hypertension) Anxiety Hernia Diverticulitis Surgical History Hx of arthroscopy of left knee (~04/2022) Hx of colonoscopy (04/16/23) Social History marital status: unmarried,single household members: none lives independently: Yes occupational status: employed alcohol intake: current substance use type: does not use Assessment & Plan Assessment & Plan narrative: Pt is a 54yo man with alcoholism, depression, and anxiety who presented with desire to stop drinking and alcohol withdrawal. 1) Aacute alcohol intoxication, in withdrawal and delirium tremens - Continue Clonidine, Acamprosate, Librium 25mg TID - Decrease Phenobarbitol to 45mg q8h due to hypotensive episodes - IV Ativan PRN (has not needed recently) - Plan to d/c to inpatient rehab facility 2) Facial contusions, hx of recent R fibula fracture: High fall risk - PT eval once able to participate meaningfully 3) Thickened wall of jejunum: noted on imaging - seen by Dr. Leach who agrees this can wait for outpt f/up - may be reactive to large amount of alcohol - No intervention at this time 4) Depression/anxiety: - Continue home Fluoxetine, Trazodone MDM: sister code: full diet: general DVT: lovenox Dispo: Pending continued stabilization. Plan to d/c to inpatient rehab pending bed availability. Time-Based Coding :: [TOTAL MINUTES] spent with patient and on the chart (including review of chart, obtaining history, exam, reviewing outside data, placing orders, documenting exam and treatment plan, and counseling patient) on [DATE]. PROFEE Mill Roll Rewinder Document charge(s): Yes Charge Codes Subsequent inpatient/observation care: [id number]
--- NOTE | 2025-07-10 16:55 | CM.SWNOTE ---
LEADITE MAN Assessment Note: LEADITE MAN - Air Quality Manager Assessment LEADITE MAN/Air Quality Manager Assessment Time Spent with Patient Start date 07/10/25 Visit Start Time 16:20 End date 07/10/25 Visit End Time 16:35 Total time Care 15 minutes Management spent on patient visit-in minutes Substance Abuse Screening Include Onset, Duration, Intensity Presenting Problem Patient is admitted for ETOH withdrawals and alcohol related illness (diverticulitis, contusions from falls). Patient is now voluntarily seeking inpatient rehab. Precipitating Event( Patient denies any stressors to contribute to increased s) drinking lately. Patient states he drinks approximately 2 tall rum mixed drinks a day and has been drinking for many years. Patient Strengths Patient is supported by his sister, Praveena. Patient is communicative and cooperative at this time. Current Behavioral None reported. Health Provider(s) Include Facility, Provider, Ph. # Family Hx of None reported. Behavioral Abuse Rehab Facilities? (( None reported. Date(s), Location(s) ) History of Hx of withdrawal includes tremors, brain fog. No Withdrawal? Seizures noted history of seizures. ? Longest Period of 1.5 years in 2848-2300. Sobriety Psychosocial Patient is a 54yo male, resident of [facility]. information & Patient has support in local family. 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 Legal Concerns Legal Matters - None reported. Outstanding Issues Mental Status Orientation (Person/ AOx3 Place/Time) Stated Mood Better today. Affect (Congruent Flat a times, congruent with mood with Mood?) Thought Content - None reported, none assessed during this meeting. Specify/Describe Obsessions, Delusions, Hallucinations Thought Processes ( Logical, goal directed Logical-Coherent- Goal Directed- Detailed-Tangential- Circumstantial- Logical-Disorganized -Thought Blocking) Speech (Normal-Slow- Normal Erqjrgy-Mykcq-Wbky- Loud-Pressured) Motor (Normal- Normal Wlmfmrpem-Zqfi-Daqrg ) Insight (Good-Fair- Fair Poor/Limited) Judgement (Good-Fair Fair -Poor/Limited) Impulse Control ( Impaired Adequate-Impaired) Memory (Immediate- Intact Recent-Remote, Impaired-Intact) Concentration ( Intact Intact-Impaired) Attention (Intact- Intact Impaired) Behavior ( Appropriate Appropriate- Inappropriate) Additional Comment Patient is calm, cooperative and communcative during assessment. Risk Assessment Suicidal Ideation ( No Plan) Homicidal Ideation ( No Plan) Comment [place]-SUICIDE SEVERITY RATING SCALE 1) Have you wished you were or wished you could go to sleep and not wake up? NO 2) Have you actually had any thoughts of killing yourself? NO 3) Have you been thinking about how you might do this? NO 4) Have you had these thoughts and had some intention of acting on them? NO 5) Have you started to work out or worked out the details of how to kill yourself? Do you intend to carry out this plan? NO 6) Have you ever done anything, started to do anything, or prepared to do anything to end your life? NO If YES, ask: Was this within the past three months? NO Intervention Intervention Reviewed chart, discussed pt with MOLD YARN SUPERVISOR who explains that pt is improving. Per Provider, pt improving with stabilization and is being recommended for inpt СЕРГЕЙ treatment when available. ED LEADITE MAN meets with patient. Patient endorses being voluntary for treatment and agreeable to any referrals on his behalf. ED LEADITE MAN and patient discuss goals of care. Patient explains they are agreeable to receive inpatient СЕРГЕЙ rehab at this time. At this time, it is the opinion of this LEADITE MAN that patient would benefit from inpatient СЕРГЕЙ rehab for ETOH withdrawal. Plan RA Plan Once patient is medically clear, Care Management and Acute Care staff will attempt to find inpatient placement for patient. ROSITA Cartagena
--- NOTE | 2025-07-10 17:00 | CM.SWNOTE ---
DCP Continued: Reviewed EMR and team rounds for pt?s medical status. Per Provider, pt stabilization improving and still moving towards an inpatient СЕРГЕЙ rehab plan. RUG DYER HELPER entered room, introduced self and role. Pt found in bed, alert and oriented, participating in RUG DYER HELPER assessment. Patient reports he is still voluntary for СЕРГЕЙ treatment at this time. Pt states he would probably need assistance with transport to СЕРГЕЙ rehab. RUG DYER HELPER spoke with [facility] admissions, spoke with Chelle, open to reviewing patient. RUG DYER HELPER sent clinicals via secure email for their review. # [phone], Adhesive Sprayer: volodymyr# [phone] fax# [phone] email: [email or web address] Plan: Pending СЕРГЕЙ rehab acceptance. CM Team will continue to follow for coordination of discharge plans. ROSITA Cartagena
[2025-07-11] VITALS (10 sets, daily range): BP systolic 117–175; BP diastolic 69–91; PULSE 69–111; RESP 16–20; TEMP 36.4–36.9; O2SAT 90–96
[2025-07-11] MEDS: DEXTROSE 5%-0.45% NS 1,000 ML 100 ML IV ×2 (00:42→12:05)
[2025-07-11 05:43] LABS: Blood Urea Nitrogen 4 mg/dL (9-20); Calcium 8.5 mg/dL (8.4-10.2); Carbon Dioxide 26 mmol/L (22-32); Chloride 105 mmol/L (98-107); Estimated Glomerular Filt Rate > 60 mL/min (>60); Glucose 101 mg/dL (70-99); HEMOLYSIS < 15 (0-50); Potassium 3.1 mmol/L (3.4-5.1); Sodium 137 mmol/L (137-145)
[2025-07-11] MEDS: PANTOPRAZOLE DR 20 MG TABLET PO (06:09)
[2025-07-11] MEDS: DOCUSATE 100 MG CAPSULE PO (09:35)
[2025-07-11] MEDS: MULTIVITAMIN 1 TABLET 1 TAB PO (09:36)
[2025-07-11] MEDS: FOLIC ACID 1 MG TABLET PO (09:36)
[2025-07-11] MEDS: POTASSIUM CHLORIDE 20 MEQ TAB 40 MEQ PO ×2 (09:37→15:02)
[2025-07-11] MEDS: ENOXAPARIN 40 MG/0.4 ML SYRINGE SUBCUT (09:37)
[2025-07-11] MEDS: SODIUM CHLORIDE 0.9% FLUSH 10 ML IV (09:37)
[2025-07-11] MEDS: NICOTINE 14 PATCH 14 MG TOP (09:46)
--- NOTE | 2025-07-11 10:57 | PM.DS.IH.1 ---
History of Present Illness History of Present Illness Date Patient Seen: 07/11/25 Chief complaint: ETOH anxiety Narrative: Pt well known to my practice presents to ED in extreme intoxication and withdrawal quite high CIWQAS score still shaky and nervous after 1mg IV ativan we discussed things he will go to inpatient rehab we will get him stabilized here first. He feels basically ok except for pain from various falls lately - prominent facial contusions noted. Seen by Dr. Leach this morning for consideration re: thickened jejunum I agree with Dr. Leach this can be f/up as outpt. Discharge Providers Provider Date of admission: 07/06/25 20:08 Discharge Date: 07/11/25 Primary care physician: Efe Breen MD Consults: 07/07/25 11:33 Consult to [facility] [place] Director Multimedia Routine Comment: Director Multimedia Consult needed for:: Other reason (Comment) Comment: ETOH, seeking IP rehab 07/07/25 13:40 Consult to Pharmacy Routine Comment: history of frequent falls Discharge provider: Adriana Amezquita MD Summary Hospital Course Discharge Diagnosis: Acute alcohol intoxication Delirium tremens Facial contusions Hx of recent right fibula fracture Thickened wall of jejunum Depression/anxiety Hospital Course: The pt was admitted with acute alcohol withdrawal. He was started on Librium TID, Clonidine, Phenobarbital as well as frequent Ativan dosing for high CIWA scores. The pt required some Haldol as well due to significant agitation, pulling out IVs, etc. His withdrawal symptoms gradually began to improve. The day prior to discharge his CIWA scores were consistently low. They tended to be more elevated in the evenings. He was weaned from his IV Phenobarbital without any issues. The pt was felt stable to discharge to inpatient rehab. Status at Discharge Cognitive/behavioral status at discharge: oriented Functional status at discharge: independent ambulation Overall status at discharge: patient is progressing back to baseline Exam Vital Signs (past 8 hours): - 07/11/25 04:00 07/11/25 06:07 07/11/25 08:00 Temperature 97.5 F L Pulse Rate 83 77 108 H Respiratory Rate 19 16 20 Blood Pressure 127/85 127/75 175/87 H Pulse Oximetry 90 L 91 Oxygen Flow Rate 0 07/11/25 09:35 07/11/25 09:36 Temperature Pulse Rate 110 H 111 H Respiratory Rate Blood Pressure 175/87 H 175/87 H Pulse Oximetry Oxygen Flow Rate Fraction of Inspired Oxygen 28 SaO2/FiO2 Ratio 339 Oxygen Delivery Method Room Air Oxygen Flow Rate 0 Narrative Exam Narrative: Gen: NAD, laying comfortably in bed CV: RRR, no murmurs Resp: clear to auscultation bilaterally Abd: soft, nontender, nondistended Ext: no edema Objective Labs 07/10/25 09:54 07/11/25 04:19 Labs: Laboratory Results - last 24 hr 07/11/25 04:19 Sodium 137 Potassium 3.1 L Chloride 105 Carbon Dioxide 26 BUN 4 L Creatinine 0.65 L Estimated GFR > 60 BUN/Creatinine Ratio 6.2 Glucose 101 H Calcium 8.5 PFSH Medical History HTN (hypertension) Anxiety Hernia Diverticulitis Surgical History Hx of arthroscopy of left knee (~04/2022) Hx of colonoscopy (04/16/23) Social History marital status: unmarried,single household members: none lives independently: Yes occupational status: employed alcohol intake: current substance use type: does not use Discharge Plan Discharge Plan Patient Disposition: Home Discharge orders & Medications Prescriptions: New docusate sodium 100 mg Capsule 100 mg PO BID Qty: 60 0RF lisinopril 20 mg Tablet 40 mg PO DAILY Qty: 30 0RF pantoprazole 20 mg Tablet,Delayed Release (Dr/Ec) 20 mg PO 0600 Qty: 30 0RF potassium chloride [Klor-Con M20] 20 mEq Tablet,Er Particles/Crystals 40 meq PO Q6H Qty: 120 0RF folic acid 1 mg Tablet 1 mg PO DAILY Qty: 30 0RF hydrocodone-acetaminophen 5-325 mg tablet 1 tab PO Q4H PRN (Reason: pain) Qty: 30 0RF lorazepam 1 mg tablet See Rx Instructions .ROUTE .COMPLEX PRN (Reason: alcohol withdrawal) Qty: 30 0RF Rx Instructions: 1 mg orally as per CIWA PRN chlordiazepoxide HCl 25 mg capsule 25 mg PO TID Qty: 90 0RF Continued atenolol 25 mg PO BID trazodone 100 mg Tablet 100 mg PO BEDTIME ibuprofen 200 mg Tablet 400 mg PO BID PRN (Reason: Pain) Patient Comments: as needed nicotine (polacrilex) 4 mg 4 mg PO PRN PRN (Reason: Nicotine Cravings) Patient Comments: patients own med acetaminophen [Tylenol] 325 mg capsule 650 mg PO QID PRN (Reason: pain) Qty: 60 0RF Patient Comments: prn clonidine HCl 0.1 mg tablet 0.2 mg PO TID Rx Instructions: 0.2 mg orally; hydroxyzine HCl 25 mg tablet 25 mg PO Q6H acamprosate 333 mg tablet,delayed release (DR/EC) 666 mg PO 3XD fluoxetine 20 mg capsule 20 mg PO DAILY Follow up/Referrals: Efe Breen MD [Primary Care Provider, Family Practice] Diet/Activity/Treatments Diet: Regular Visit Report/Discharge Packet Stand Alone Forms: Patient Portal/API, Stroke Signs & Symptoms Discharge Data Primary Care Provider: Efe Breen PROFEE Charge Codes Discharge inpatient/observation: [id number]
--- NOTE | 2025-07-11 13:41 | CM.DPC ---
Addendum entered by MARYBETH Almanza 07/11/25 15:10: ADD: Per Marin at [facility], their physician has accept and pt can be admitted today but has to be door to door, no stops. Ideally pt would arrive around 1900 as their provider will be there for admit. No further documentation needed as d/c summary and meds already sent. RAINE met with pt and sister/POA bedside and updated and sister was under the impression that the hospital would provide transport. Discussed that only transport available would be non-emergent ambulance and cannot guarantee insurance coverage. Sister confirms she can transport and will not leave pt unattended or make stops. Sister coordinating with Marin at [facility] on maybe driving half way and then [facility] would provide transport within 50 mile radius of their facility in [place]. RAINE updated RN and eyeglass fitter. BF Original Note: DCP Discharge ETOH tx Per MD, pt switched to PO meds today for taper of alcohol withdrawal and per RN pt has been SBA in room with mobility and independent with ADLs and pt medically stable to discharge to Inpt ETOH tx today. RAINE spoke to Marin [phone] at [facility] in [facility] who states they have a male opening and reviewing and she will run pt's insurance and call pt on his cell phone for intake and confirm with their team they can accept pt. RAINE secure emailed her pt's discharge summary, med list, and scripts to [email or web address]. RAINE met bedside with pt and explained role and updated on above and he confirms his cell phone is bedside and he will complete intake when they call and pt agreeable with d/c plan. RN kindly called [facility] RN Aaliyah at [phone] and answered questions regarding pt's 1:1 a couple days ago and his ambulatory status etc.. They will send final review to their Provider to confirm they can accept pt today. MARYBETH Almanza
--- NOTE | 2025-07-11 15:54 | PT.IIE ---
Current Diagnoses Other specified diseases of intestine (07/06/25) Disease of intestine, unspecified (07/06/25) Surgical History (Last Reviewed 07/06/25 @ 14:04 by Jaqui Goldberg DO) Hx of arthroscopy of left knee (~04/2022) Hx of colonoscopy (04/16/23) Medical History (Last Reviewed 07/06/25 @ 14:04 by Jaqui Goldberg DO) Anxiety Diverticulitis Hernia HTN (hypertension) Physical Therapy Inpatient Evaluation/Re-Eval M1 PT/OT-IP Prior Functional Status Start: 07/11/25 15:43 Freq: NEEDED Status: Active Protocol: Document 07/11/25 15:44 [facility] (Rec: 07/11/25 15:54 [facility] [id number]) Medical Review Prior Functional Status Medical History Yes Reviewed Diet/Fluid Regular Consistency Communication WNL Mobility and Gait indep w/o AD Activities of Daily indep, cooks, cleans, drives Living and IADL's Social History Household Members none Living Arrangements Apartment/Condo Number of Floors ( One Floor Floors) Number of Stairs To 2 WILLY w/rail Enter/Railing? Home Environment Standard Height Toilet,Walk in Shower Home Equipment Grab Bars In Shower M2 PT-IP Current Condition Start: 07/11/25 15:43 Freq: NEEDED Status: Active Protocol: Document 07/11/25 15:44 [facility] (Rec: 07/11/25 15:54 [facility] [id number]) Physical Therapy Current Condition Current Condition Evaluation Date 07/11/25 Treatment Diagnosis ETOH withdrawl, weakness M3 PT-IP Subjective Start: 07/11/25 15:43 Freq: NEEDED Status: Active Protocol: Document 07/11/25 15:44 [facility] (Rec: 07/11/25 15:54 [facility] [id number]) Subjective Physical Therapy Visit Type Type Initial Evaluation Visit Start Time 15:15 Visit Stop Time 15:40 Number of DIRECTOR SOFTWARE DEVELOPMENT Visits 0 Physical Therapy Visit Comments Patient Comments agreeable to get up. notes he hasn't been up much M4 PT-IP Mobility and Gait Start: 07/11/25 15:43 Freq: NEEDED Status: Active Protocol: Document 07/11/25 15:44 [facility] (Rec: 07/11/25 15:54 [facility] [id number]) PT-Bed Mobility Assessment Supine to Sit Supine to Sit Independent,Head of Bed Elevated Sit to Supine Sit to Supine Independent,Head of Bed Elevated Scooting Scooting to Edge of Independent Bed PT-Transfer Assessment Sit to and From Stand Sit to and from Standby Assistance,Use of Upper Extremities Stand Equipment Transfer Assistive Gait Belt Device Orthotic/Prosthetic No Devices or Brace: Gait Assessment Gait Gait Assistance Standby Assistance Required: Distance (Feet) 290 Able to Maintain Yes Weight Bearing Status During Gait Assistive Devices Assistive Device Gait Belt Orthotic/Prosthetic No Devices or Brace: Gait Deviations General Gait Pattern Decreased Stride Length,Decreased Feet Clearance Factors Limiting Gait Function Factors Limiting Decreased Activity Tolerance,Decreased Strength,Poor Gait Function Balance Comments Gait Comments supine to sit w/HOB elevated indep and Indep scoot to EOB. BP 160/91. Pt stood SBA then amb w/cues to inc stride length as he could 290ft w/o AD and occ standing rest breaks. He noted some L ant hip cramping but noted he felt better after ambulating. Stride length inc with inc time ambulating. Pt indep with sit to to supine and left w/call light in reach and bed alarm on. PT-Balance Assessment Sitting Balance and Reactions Static Sitting Normal Balance Ability Dynamic Sitting Good Balance Ability Standing Balance and Reactions Static Standing Good Balance Ability Dynamic Standing Fair Balance Ability Device Used none M5 PT-IP Objective Assessments Start: 07/11/25 15:43 Freq: NEEDED Status: Active Protocol: Document 07/11/25 15:44 [facility] (Rec: 07/11/25 15:54 [facility] [id number]) Orientation Orientation/Cognition Level of Alertness Alert Language Function No Deficits Noted Ability Safety Awareness Understands Safety Issues Memory Description No Deficits Noted Gross Range of Motion Lower Extremity ROM Assessment Within Functional Limits Strength Lower Extremity Strength Assessment Within Functional Limits Muscle Tone Muscle Tone WNL Yes M6 PT-IP Treatment Start: 07/11/25 15:43 Freq: NEEDED Status: Active Protocol: Document 07/11/25 15:44 [facility] (Rec: 07/11/25 15:54 [facility] [id number]) Physical Therapy Treatment Education Education Provided Safety M7 PT-IP Assessment and Plan Start: 07/11/25 15:43 Freq: NEEDED Status: Active Protocol: Document 07/11/25 15:44 [facility] (Rec: 07/11/25 15:54 [facility] [id number]) PT Summary Assessment and Plan Potential Rehabilitation Good Potential Status of Condition Evolving at Evaluation Summary Impairments Strength,Balance,Transfers,Gait,Activity Tolerance Assessment Summary Pt presents after ETOH withdrawl w/dec strength likely d/t inc time he was bed bound during hospital stay. As he is feeling better medically, he was able to do more w/mobility and was able to improve stride and gait speed with inc time ambulating today. Likely slower and dec step length d/t deconditioning during recovery. He will likely cont to improve w/cont inc time ambulating and w/functional mobility. Goals Transfer Goal Independent Gait Goal Independent Gait Distance 300ft Other Goals up/down 2 stairs w/rail indep Days to Meet Goals 7 Frequency of Treatment Frequency Of Once a Day Treatment Treatment Plan Physical Therapy Transfer Training,Gait Training,Therapeutic Exercise, Treatment Plan Balance Retraining,Neuromuscular Re-ed Recommendations To Nursing Amount of Assist Standby Assistance Needed Discharge Recommendations Other Discharge CM working on plan for pt to go to rehab Recommendations Transportation Needs Private Vehicle,Wheelchair/Cabulance at Discharge - PT assist 1
--- NOTE | 2025-07-11 17:07 | PC.NURSE ---
Day shift: Pt A&Ox3 unsure of date. Pt ambulatory with SBA, slow but steady gait. Able to use toilet to void. [facility] rehab reviewing admission information prior to acceptance. Aaliyah ONEIL given information regarding pt's status in hospital. Pt worked with PT. Pt agreeable to discharge. IVs discontinued. Pt provided with discharge instructions, hard copy prescriptions. Discharge information along with prescription information provided to the rehab by social work. Pt discharged at 1645 via w/c to private vehicle with pct and sister.
== END 2025-07-11 16:45 | disposition home or self-care (01) | DRG 897 ==
LOC: ED 16:13 → AC 20:08 → ICU 07-07 11:32
PROVIDERS: Emergency Medicine; Family Medicine; Admitting Provider Family Medicine; Emergency Provider Family Medicine; PCP Family Medicine; Visit Provider Family Medicine
DX: F10.231 Alcohol dependence with withdrawal delirium (principal); K63.89 Other specified diseases of intestine; S00.83XA Contusion of other part of head, initial encounter; F10.221 Alcohol dependence with intoxication delirium; F41.9 Anxiety disorder, unspecified; F32.A Depression, unspecified; I10 Essential (primary) hypertension; X58.XXXA Exposure to other specified factors, initial encounter; Y90.8 Blood alcohol level of 240 mg/100 ml or more; Z91.81 History of falling; Z87.81 Personal history of (healed) traumatic fracture
CPT/HCPCS: 36415; 70450; 74177; 80048; 80053; 80305; 80320; 81001; 83605; 83690; 85025; 87797; 96361; 96365; 96366; 96367; 96375; 96376; 97116; 97162; 99231; 99232; 99238; 99285; A9270; J0744; J1630; J1650; J2060; J2560; J7030